=== PATIENT | male | born 1965 | race African-American/Black ===

== ENCOUNTER 2017-07-04 13:27 | Inpatient (IN) | payer OTHER ==
[2017-07-04 14:47] VITALS: BMI 43.4
--- NOTE | 2017-07-04 16:00 | HP ---
CIWA Score - CIWA Score Nausea/Vomitin Muscle Tremors: 4-Moderate,w/Arms Extend Anxiety: 3 Agitation: 1-Slight > Activity Paroxysmal Sweats: 3 Orientation: 0-Oriented Tacttile Disturbances: 0-None Auditory Disturbances: 0-None Visual Disturbances: 0-None Headache: 4-Moderately Severe CIWA-Ar Total Score: 18 Admission ROS S - HPI Chief Complaint: Alcohol withdrawal symptoms Allergies/Adverse Reactions: Allergies Allergy/AdvReac Type Severity Reaction Status Date / Time No Known Allergies Allergy Verified 07/04/17 15:56 History of Present Illness: 52 years old male with a long history of alcohol dependence is admitted to detox. Patient has been in previous detox and reports insignificant period of sobriety. He has past medical history of migraine headache and depression. Denies suicidal ideation at this time. Exam Limitations: No Limitations - Ebola screening Have you traveled outside of the country in the last 21 days: No Have you had contact with anyone from an Ebola affected area: No Have you been sick,other than usual withdrawal symptoms: No Do you have a fever: No - Review of Systems Constitutional: Chills, Loss of Appetite, Malaise, Night Sweats, Changes in sleep EENT: reports: Blurred Vision, Sinus Pressure Respiratory: reports: Productive cough (yellowish phlegm) Cardiac: reports: No Symptoms Reported GI: reports: Diarrhea, Nausea, Poor Appetite, Poor Fluid Intake, Abdominal cramping : reports: No Symptoms Reported Musculoskeletal: reports: No Symptoms Reported Integumentary: reports: Dryness, Flushing Neuro: reports: Headache, Tingling, Tremors Endocrine: reports: No Symptoms Reported Hematology: reports: No Symptoms Reported Psychiatric: reports: Orientated x3, Anxious, Depressed Other Systems: Reviewed and Negative Patient History - Patient Medical History Hx Anemia: No Hx Asthma: No Hx Chronic Obstructive Pulmonary Disease (COPD): No Hx Cancer: No Hx Cardiac Disorders: No Hx Congestive Heart Failure: No Hx Hypertension: No Hx Hypercholesterolemia: No Hx Pacemaker: No HX Cerebrovascular Accident: No Hx Seizures: No Hx Dementia: No Hx Diabetes: No Hx Gastrointestinal Disorders: No Hx Liver Disease: No Hx Genitourinary Disorders: No Hx Sexually Transmitted Disorders: No Hx Renal Disease (ESRD): No Hx Thyroid Disease: No Hx Human Immunodeficiency Virus (HIV): No Hx Hepatitis C: No Hx Depression: Yes Hx Suicide Attempt: No Hx Bipolar Disorder: No Hx Schizophrenia: No Other Medical History: MIGRAINE HEADACHE - Patient Surgical History Past Surgical History: No Hx Neurologic Surgery: No Hx Cataract Extraction: No Hx Cardiac Surgery: No Hx Lung Surgery: No Hx Abdominal Surgery: No Hx Appendectomy: No Hx Cholecystectomy: No Hx Genitourinary Surgery: No Hx Orthopedic Surgery: No Anesthesia Reaction: No - PPD History Previous Implant?: Yes (Lexi brock) Documented Results: Negative w/o proof Implanted On Prior [facility] Admission?: No Date: 03/17/13 PPD to be Administered?: Yes - Reproductive History Patient is a Female of Child Bearing Age (11 -55 yrs old): No (MALE) - Smoking Cessation Smoking history: Former smoker Have you smoked in the past 12 months: No Aproximately how many cigarettes per day: 2 Cigars Per Day: 0 Hx Chewing Tobacco Use: No Initiated information on smoking cessation: No - Substance & Tx. History Hx Alcohol Use: Yes (LIQUOR, BEER WINE) Hx Substance Use: Yes Substance Use Type: Cocaine Hx Substance Use Treatment: Yes ([facility] 2012) - Substances Abused Cocaine Route: Smoking Frequency: Daily Amount used: 1 GRAM Age of first use: 21 Date of Last Use: 07/03/17 Alcohol Route: Oral Frequency: Daily Amount used: BEER -3 x 12 oz, VODKA -1/2 pint Age of first use: 12 Date of Last Use: 07/03/17 Marijuana/Hashish Route: Smoking Frequency: Daily Amount used: 3 joints Age of first use: 12 Date of Last Use: 06/26/17 Family Disease History - Family Disease History Family History: Denies Admission Physical Exam [facility] - Vital Signs Vital Signs: Vital Signs - 24 hr 07/04/17 07/04/17 14:46 15:02 Temperature 97.6 F 97.6 F Pulse Rate 72 72 Respiratory 20 20 Rate Blood Pressure 148/89 148/89 - Physical General Appearance: Yes: Moderate Distress, Tremorous, Irritable, Sweating, Anxious HEENTM: Yes: EOMI, Normal ENT Inspection, JEREMIE Respiratory: Yes: Lungs Clear, Normal Breath Sounds, No Respiratory Distress Neck: Yes: Supple Breast: Yes: Breast Exam Deferred Cardiology: Yes: Regular Rhythm, Regular Rate, S1, S2 Abdominal: Yes: Protuberent Genitourinary: Yes: Within Normal Limits Back: Yes: Normal Inspection Musculoskeletal: Yes: Within Normal Limits Extremities: Yes: Tremors Neurological: Yes: Alert, Normal Mood/Affect, Normal Response Integumentary: Yes: Dry Lymphatic: Yes: Within Normal Limits - Diagnostic (1) Alcohol dependence with uncomplicated withdrawal Current Visit: No Status: Chronic (2) Cannabis dependence Current Visit: No Status: Chronic (3) Cocaine dependence Current Visit: No Status: Chronic Cleared for Admission [facility] - Detox or Rehab [facility] Level of Care: Medically Managed Detox Regimen/Protocol: Librium [facility] Breath Alcohol Content Breath Alcohol Content: 0 Urine Drug Screen - Results Drug Screen Negative: No Urine Drug Screen Results: KENNY-Cocaine
[2017-07-04] MEDS ORDERED: guaiFENesin/D-METHORPHAN HB 10 ML UNIT-DOSE CUPS PO PRN (16:11)
[2017-07-04] MEDS ORDERED: chlordiazePOXIDE HCL 25 MG CAPSULE PO PRN (16:11)
[2017-07-04] MEDS ORDERED: MAGNESIUM CITRATE 300 ML BOTTLE PO PRN (16:11)
[2017-07-04] MEDS ORDERED: MENTHOL/PHENOL 1 EACH UD MM PRN (16:11)
[2017-07-04] MEDS ORDERED: P-EPHED 60MG/TRIPROLIDI 2.5MG TABLET PO PRN (16:11)
[2017-07-04] MEDS ORDERED: MAG HYDROX/AL HYDROX/SIMETH 30 ML UNIT-DOSE CUP PO PRN (16:11)
[2017-07-04] MEDS ORDERED: MAGNESIUM HYDROX 2400MG/30ML ORAL SUSPENSION 30 ML CUP PO PRN (16:11)
[2017-07-04] MEDS ORDERED: LOPERAMIDE HCL 2 MG CAPSULE PO PRN (16:11)
[2017-07-04] MEDS: ACETAMINOPHEN 325 MG TABLET (FP) PO PRN (17:43)
[2017-07-04] MEDS: IBUPROFEN 400 MG TABLET (FP) PO PRN (22:45)
[2017-07-04] MEDS: chlordiazePOXIDE HCL 25 MG CAPSULE PO SCH (22:45)
[2017-07-04] MEDS: THIAMINE HCL 100 MG TABLET (FP) PO SCH (22:46)
[2017-07-04 22:55] LABS: URINE APPEARANCE TURBID; URINE BILIRUBIN NEGATIVE (NEGATIVE); URINE BLOOD NEGATIVE (NEGATIVE); URINE COLOR AMBER; URINE GLUCOSE (UA) NEGATIVE (NEGATIVE); URINE KETONE NEGATIVE (NEGATIVE); URINE LEUK ESTERASE NEGATIVE (NEGATIVE); URINE NITRITE NEGATIVE (NEGATIVE); URINE PROTEIN NEGATIVE (NEGATIVE); URINE UROBILINOGEN 4.0 E.U/dl mg/dL (0.2-1.0)
[2017-07-05] MEDS: chlordiazePOXIDE HCL 25 MG CAPSULE PO SCH ×4 (06:23→22:27)
[2017-07-05] MEDS: PRENATAL VITAMINS W/ FOLIC ACID TABLET (FP) PO SCH (10:05)
[2017-07-05 12:00] LABS: HEMATOCRIT 39.2 % (35.4-49); HEMOGLOBIN 12.7 GM/dL (11.7-16.9); MCH 29.3 pg (25.7-33.7); MCHC 32.5 g/dl (32.0-35.9); MEAN CELL VOLUME 90.4 fl (80-96); MEAN PLT VOLUME 8.7 fl (7.5-11.1); PLATELET COUNT 240 K/MM3 (134-434); RBC 4.34 M/mm3 (4.00-5.60); RDW 14.2 % (11.9-15.9); WHITE BLOOD COUNT 5.6 K/mm3 (4.0-10.0)
[2017-07-05 12:15] LABS: ALBUMIN 3.3 g/dl (3.4-5.0); ALK PHOS 66 U/L (45-117); ANION GAP 11 (8-16); BILIRUBIN,TOTAL 0.4 mg/dL (0.2-1.0); BLOOD UREA NITROGEN 14 mg/dL (7-18); CALCIUM 8.7 mg/dL (8.5-10.1); CHLORIDE 106 mmol/L (98-107); CO2 24 mmol/L (21-32); CREATININE 1.1 mg/dL (0.7-1.3); GLUCOSE,RANDOM 129 mg/dL (74-106); POTASSIUM 3.6 mmol/L (3.5-5.1); SGOT/AST 15 U/L (15-37); SGPT/ALT 25 U/L (12-78); SODIUM 141 mmol/L (136-145); TOT PROT 6.2 g/dl (6.4-8.2)
[2017-07-05 12:52] LABS: SICKLE CELL SCREEN NEGATIVE (NEGATIVE)
--- NOTE | 2017-07-05 13:35 | PN ---
[facility] CIWA - CIWA Score Nausea/Vomitin-No Nausea/No Vomiting Muscle Tremors: 4-Moderate,w/Arms Extend Anxiety: 4-Mod. Anxious/Guarded Agitation: 4-Moderately Restless Paroxysmal Sweats: 1-Minimal Palms Moist Orientation: 0-Oriented Tacttile Disturbances: 3-Moderate Itch/Numb/Burn Auditory Disturbances: 0-None Visual Disturbances: 0-None Headache: 0-None Present CIWA-Ar Total Score: 16 BHS Progress Note (SOAP) Subjective: ANXIETY,SWEATS,CHILLS,FATIGUE. Objective: 07/05/17 13:35 Vital Signs Temperature 97.1 F L 07/05/17 09:26 Pulse Rate 64 07/05/17 09:26 Respiratory Rate 18 07/05/17 09:26 Blood Pressure 134/93 07/05/17 09:26 O2 Sat by Pulse Oximetry (%) Laboratory Last Values WBC 5.6 K/mm3 (4.0-10.0) 07/05/17 07:50 RBC 4.34 M/mm3 (4.00-5.60) 07/05/17 07:50 Hgb 12.7 GM/dL (11.7-16.9) 07/05/17 07:50 Hct 39.2 % (35.4-49) 07/05/17 07:50 MCV 90.4 fl (80-96) 07/05/17 07:50 MCH 29.3 pg (25.7-33.7) 07/05/17 07:50 MCHC 32.5 g/dl (32.0-35.9) 07/05/17 07:50 RDW 14.2 % (11.9-15.9) 07/05/17 07:50 Plt Count 240 K/MM3 (134-434) 07/05/17 07:50 MPV 8.7 fl (7.5-11.1) 07/05/17 07:50 Sickle Cell Screen Negative (NEGATIVE) 07/05/17 07:50 Sodium 141 mmol/L (136-145) 07/05/17 07:50 Potassium 3.6 mmol/L (3.5-5.1) 07/05/17 07:50 Chloride 106 mmol/L (98-107) 07/05/17 07:50 Carbon Dioxide 24 mmol/L (21-32) 07/05/17 07:50 Anion Gap 11 (8-16) 07/05/17 07:50 BUN 14 mg/dL (7-18) 07/05/17 07:50 Creatinine 1.1 mg/dL (0.7-1.3) 07/05/17 07:50 Creat Clearance w eGFR > 60 (>60) 07/05/17 07:50 Random Glucose 129 mg/dL (74-106) H 07/05/17 07:50 Calcium 8.7 mg/dL (8.5-10.1) 07/05/17 07:50 Total Bilirubin 0.4 mg/dL (0.2-1.0) D 07/05/17 07:50 AST 15 U/L (15-37) D 07/05/17 07:50 ALT 25 U/L (12-78) D 07/05/17 07:50 Alkaline Phosphatase 66 U/L (45-117) 07/05/17 07:50 Total Protein 6.2 g/dl (6.4-8.2) L 07/05/17 07:50 Albumin 3.3 g/dl (3.4-5.0) L 07/05/17 07:50 Urine Color [place] 07/04/17 15:10 Urine Appearance Turbid 07/04/17 15:10 Urine pH 5.0 (5.0-8.0) 07/04/17 15:10 Ur Specific [place] 1.032 (1.001-1.035) 07/04/17 15:10 Urine Protein Negative (NEGATIVE) 07/04/17 15:10 Urine Glucose (UA) Negative (NEGATIVE) 07/04/17 15:10 Urine Ketones Negative (NEGATIVE) 07/04/17 15:10 Urine Blood Negative (NEGATIVE) 07/04/17 15:10 Urine Nitrite Negative (NEGATIVE) 07/04/17 15:10 Urine Bilirubin Negative (NEGATIVE) 07/04/17 15:10 Urine Urobilinogen 4.0 e.u/dl mg/dL (0.2-1.0) 07/04/17 15:10 Ur Leukocyte Esterase Negative (NEGATIVE) 07/04/17 15:10 RPR Titer Nonreactive (NONREACTIVE) 07/05/17 07:50 Assessment: 07/05/17 13:35 WITHDRAWAL SX Plan: CONTINUE DETOX
--- NOTE | 2017-07-05 14:17 | EKG ---
Test Reason : Blood Pressure : / mmHG Vent. Rate : 062 BPM Atrial Rate : 062 BPM P-R Int : 142 ms QRS Dur : 086 ms QT Int : 406 ms P-R-T Axes : 039 023 005 degrees QTc Int : 412 ms NORMAL SINUS RHYTHM NORMAL ECG NO PREVIOUS ECGS AVAILABLE Confirmed by BENY CHEN, GORAN ([id number]) on 07/05/2017 2:17:02 PM Referred By: Yury Aguirre Confirmed By:GORAN SWAN MD
[2017-07-05] MEDS: IBUPROFEN 400 MG TABLET (FP) PO PRN (18:07)
[2017-07-05] MEDS: THIAMINE HCL 100 MG TABLET (FP) PO SCH (22:26)
[2017-07-05] MEDS: ACETAMINOPHEN 325 MG TABLET (FP) PO PRN (22:26)
[2017-07-06] MEDS: chlordiazePOXIDE HCL 25 MG CAPSULE PO SCH ×3 (05:50→17:08)
[2017-07-06] MEDS: PRENATAL VITAMINS W/ FOLIC ACID TABLET (FP) PO SCH (10:19)
[2017-07-06] MEDS: IBUPROFEN 400 MG TABLET (FP) PO PRN ×2 (10:19→17:10)
--- NOTE | 2017-07-06 10:47 | PN ---
[facility] CIWA - CIWA Score Nausea/Vomitin-No Nausea/No Vomiting Muscle Tremors: 3 Anxiety: 4-Mod. Anxious/Guarded Agitation: 3 Paroxysmal Sweats: 2 Orientation: 2-Disoriented Date<2 days Tacttile Disturbances: 2-Mild Itch/Numbness/Burn Auditory Disturbances: 2-Mild Harshness/Frighten Visual Disturbances: 0-None Headache: 0-None Present CIWA-Ar Total Score: 18 BHS Progress Note (SOAP) Subjective: Fatigue, Anxious, Tremors, Sweating. Objective: PT. A &O X 2 (UNCERTAIN ABOUT CURRENT DAY / DATE). NO ACUTE DISTRESS. 07/06/17 10:45 Vital Signs Temperature 98.4 F 07/06/17 09:46 Pulse Rate 65 07/06/17 09:46 Respiratory Rate 18 07/06/17 09:46 Blood Pressure 135/92 07/06/17 09:46 O2 Sat by Pulse Oximetry (%) Laboratory Tests 07/04/17 07/05/17 07/05/17 15:10 07:50 07:50 WBC 5.6 RBC 4.34 Hgb 12.7 Hct 39.2 MCV 90.4 MCH 29.3 MCHC 32.5 RDW 14.2 Plt Count 240 MPV 8.7 Sickle Cell Screen Negative Sodium 141 Potassium 3.6 Chloride 106 Carbon Dioxide 24 Anion Gap 11 BUN 14 Creatinine 1.1 Creat Clearance w eGFR > 60 Random Glucose 129 H Calcium 8.7 Total Bilirubin 0.4 D AST 15 D ALT 25 D Alkaline Phosphatase 66 Total Protein 6.2 L Albumin 3.3 L Urine Color [place] Urine Appearance Turbid Urine pH 5.0 Ur Specific [place] 1.032 Urine Protein Negative Urine Glucose (UA) Negative Urine Ketones Negative Urine Blood Negative Urine Nitrite Negative Urine Bilirubin Negative Urine Urobilinogen 4.0 e.u/dl Ur Leukocyte Esterase Negative RPR Titer 07/05/17 07:50 WBC RBC Hgb Hct MCV MCH MCHC RDW Plt Count MPV Sickle Cell Screen Sodium Potassium Chloride Carbon Dioxide Anion Gap BUN Creatinine Creat Clearance w eGFR Random Glucose Calcium Total Bilirubin AST ALT Alkaline Phosphatase Total Protein Albumin Urine Color Urine Appearance Urine pH Ur Specific [place] Urine Protein Urine Glucose (UA) Urine Ketones Urine Blood Urine Nitrite Urine Bilirubin Urine Urobilinogen Ur Leukocyte Esterase RPR Titer Nonreactive LABS NOTED. Assessment: 07/06/17 10:46 WITHDRAWAL SYMPTOMS. Plan: CONTINUE DETOX. INCREASE DAILY PO FLUID INTAKE.
[2017-07-06] MEDS: SUMAtriptan SUCCINATE 50 MG TABLET PO SCH (20:30)
[2017-07-06] MEDS: chlordiazePOXIDE 5 MG CAPSULE PO SCH (22:02)
[2017-07-06] MEDS: THIAMINE HCL 100 MG TABLET (FP) PO SCH (22:03)
[2017-07-07] MEDS: chlordiazePOXIDE 5 MG CAPSULE PO SCH ×3 (06:29→17:18)
[2017-07-07] MEDS: IBUPROFEN 400 MG TABLET (FP) PO PRN (06:30)
[2017-07-07] MEDS ORDERED: AMMONIUM LACTATE 12% LOTION 225 GM BOTTLE TP SCH (10:00)
[2017-07-07] MEDS: METHYL SALICYLATE/MENTHOL OINT 30 GM TUBE TP SCH ×2 (10:33→22:00)
[2017-07-07] MEDS: PRENATAL VITAMINS W/ FOLIC ACID TABLET (FP) PO SCH (10:33)
[2017-07-07] MEDS: ACETAMINOPHEN 325 MG TABLET (FP) PO PRN (10:35)
--- NOTE | 2017-07-07 12:45 | PN ---
BHS Progress Note (SOAP) Subjective: Anxious, Sweating. Objective: PT. A & O X 2 (UNCERTAIN ABOUT CURRENT DAY / DATE). PT. OBSERVED AMBULATING ON UNIT. NO ACUTE DISTRESS. 07/07/17 12:42 Vital Signs Temperature 98.9 F 07/07/17 09:11 Pulse Rate 77 07/07/17 09:11 Respiratory Rate 18 07/07/17 09:11 Blood Pressure 141/91 07/07/17 09:11 O2 Sat by Pulse Oximetry (%) Laboratory Tests 07/04/17 07/05/17 07/05/17 15:10 07:50 07:50 WBC 5.6 RBC 4.34 Hgb 12.7 Hct 39.2 MCV 90.4 MCH 29.3 MCHC 32.5 RDW 14.2 Plt Count 240 MPV 8.7 Sickle Cell Screen Negative Sodium 141 Potassium 3.6 Chloride 106 Carbon Dioxide 24 Anion Gap 11 BUN 14 Creatinine 1.1 Creat Clearance w eGFR > 60 Random Glucose 129 H Calcium 8.7 Total Bilirubin 0.4 D AST 15 D ALT 25 D Alkaline Phosphatase 66 Total Protein 6.2 L Albumin 3.3 L Urine Color [place] Urine Appearance Turbid Urine pH 5.0 Ur Specific [place] 1.032 Urine Protein Negative Urine Glucose (UA) Negative Urine Ketones Negative Urine Blood Negative Urine Nitrite Negative Urine Bilirubin Negative Urine Urobilinogen 4.0 e.u/dl Ur Leukocyte Esterase Negative RPR Titer 07/05/17 07:50 WBC RBC Hgb Hct MCV MCH MCHC RDW Plt Count MPV Sickle Cell Screen Sodium Potassium Chloride Carbon Dioxide Anion Gap BUN Creatinine Creat Clearance w eGFR Random Glucose Calcium Total Bilirubin AST ALT Alkaline Phosphatase Total Protein Albumin Urine Color Urine Appearance Urine pH Ur Specific [place] Urine Protein Urine Glucose (UA) Urine Ketones Urine Blood Urine Nitrite Urine Bilirubin Urine Urobilinogen Ur Leukocyte Esterase RPR Titer Nonreactive LABS NOTED. Assessment: 07/07/17 12:43 WITHDRAWAL SYMPTOMS. Plan: CONTINUE DETOX.
--- NOTE | 2017-07-07 13:53 | CONSULT ---
[facility] Psychiatric Consult - Data Date of interview: 07/07/17 Admission source: [facility] Identifying data: Patient approached at bedside for psychiatric interview.Mr Woo abarca REFUSES." I am fine.I don't need to talk to psychiatrists.Please leave." Nursing staff is made aware.
[2017-07-07] MEDS: IBUPROFEN 600 MG TABLET (FP) PO PRN (17:20)
[2017-07-07] MEDS: chlordiazePOXIDE HCL 10 MG CAPSULE PO SCH (21:59)
[2017-07-07] MEDS: THIAMINE HCL 100 MG TABLET (FP) PO SCH (21:59)
[2017-07-08] MEDS: chlordiazePOXIDE HCL 10 MG CAPSULE PO SCH ×3 (05:20→17:16)
[2017-07-08] MEDS: PRENATAL VITAMINS W/ FOLIC ACID TABLET (FP) PO SCH (10:23)
[2017-07-08] MEDS: IBUPROFEN 600 MG TABLET (FP) PO PRN ×2 (10:24→21:54)
[2017-07-08] MEDS: METHYL SALICYLATE/MENTHOL OINT 30 GM TUBE TP SCH ×2 (10:25→21:51)
--- NOTE | 2017-07-08 12:13 | PN ---
BHS Progress Note (SOAP) Subjective: Body Aches, Anxious, Interrupted Sleep. Objective: PT. A & O X 3, OBSERVED AMBULATING ON UNIT. NO ACUTE DISTRESS. 07/08/17 12:11 Vital Signs Temperature 96.9 F L 07/08/17 08:44 Pulse Rate 70 07/08/17 08:44 Respiratory Rate 18 07/08/17 08:44 Blood Pressure 141/86 07/08/17 08:44 O2 Sat by Pulse Oximetry (%) Laboratory Tests 07/04/17 07/05/17 07/05/17 15:10 07:50 07:50 WBC 5.6 RBC 4.34 Hgb 12.7 Hct 39.2 MCV 90.4 MCH 29.3 MCHC 32.5 RDW 14.2 Plt Count 240 MPV 8.7 Sickle Cell Screen Negative Sodium 141 Potassium 3.6 Chloride 106 Carbon Dioxide 24 Anion Gap 11 BUN 14 Creatinine 1.1 Creat Clearance w eGFR > 60 Random Glucose 129 H Calcium 8.7 Total Bilirubin 0.4 D AST 15 D ALT 25 D Alkaline Phosphatase 66 Total Protein 6.2 L Albumin 3.3 L Urine Color [place] Urine Appearance Turbid Urine pH 5.0 Ur Specific [place] 1.032 Urine Protein Negative Urine Glucose (UA) Negative Urine Ketones Negative Urine Blood Negative Urine Nitrite Negative Urine Bilirubin Negative Urine Urobilinogen 4.0 e.u/dl Ur Leukocyte Esterase Negative RPR Titer 07/05/17 07:50 WBC RBC Hgb Hct MCV MCH MCHC RDW Plt Count MPV Sickle Cell Screen Sodium Potassium Chloride Carbon Dioxide Anion Gap BUN Creatinine Creat Clearance w eGFR Random Glucose Calcium Total Bilirubin AST ALT Alkaline Phosphatase Total Protein Albumin Urine Color Urine Appearance Urine pH Ur Specific [place] Urine Protein Urine Glucose (UA) Urine Ketones Urine Blood Urine Nitrite Urine Bilirubin Urine Urobilinogen Ur Leukocyte Esterase RPR Titer Nonreactive LABS NOTED. Assessment: 07/08/17 12:12 WITHDRAWAL SYMPTOMS. Plan: CONTINUE DETOX. DUE TO PERSISTENCE OF DETOX SYMPTOMS AND DUE TO SEVERELY INCLEMENT WEATHER OUTSIDE, PATIENT TO REMAIN ON DETOX UNIT (WHILE AFTERCARE PLANS ARE ARRANGED BY HIM AND HIS COUNSELOR) UNTIL TOMORROW FOR DISCHARGE.
[2017-07-08] MEDS: THIAMINE HCL 100 MG TABLET (FP) PO SCH (21:51)
[2017-07-08] MEDS: SUMAtriptan SUCCINATE 50 MG TABLET PO SCH (21:53)
[2017-07-09 06:02] VITALS: BP 111/64; PULSE 73; TEMP 98
[2017-07-09] MEDS: PRENATAL VITAMINS W/ FOLIC ACID TABLET (FP) PO SCH (09:08)
[2017-07-09] MEDS: METHYL SALICYLATE/MENTHOL OINT 30 GM TUBE TP SCH (09:08)
--- NOTE | 2017-07-09 12:28 | DS ---
[facility] Detox Discharge Summary Admission Date: 07/04/17 Discharge Date: 07/09/17 - History Present History: Alcohol Dependence, Cannabis Dependence, Cocaine Dependence Additional Comments: DETOX COMPLETED.ALERT O X 3. FOLLOW UP WITH PCP AT [facility] NEEDED. Pertinent Past History: MIGRAINE HEADACHES - Physical Exam Results Vital Signs: Vital Signs Temperature 98 F 07/09/17 06:01 Pulse Rate 73 07/09/17 06:01 Respiratory Rate 20 07/09/17 06:01 Blood Pressure 111/64 07/09/17 06:01 O2 Sat by Pulse Oximetry (%) Pertinent Admission Physical Exam Findings: WITHDRAWAL SX Laboratory Last Values WBC 5.6 K/mm3 (4.0-10.0) 07/05/17 07:50 RBC 4.34 M/mm3 (4.00-5.60) 07/05/17 07:50 Hgb 12.7 GM/dL (11.7-16.9) 07/05/17 07:50 Hct 39.2 % (35.4-49) 07/05/17 07:50 MCV 90.4 fl (80-96) 07/05/17 07:50 MCH 29.3 pg (25.7-33.7) 07/05/17 07:50 MCHC 32.5 g/dl (32.0-35.9) 07/05/17 07:50 RDW 14.2 % (11.9-15.9) 07/05/17 07:50 Plt Count 240 K/MM3 (134-434) 07/05/17 07:50 MPV 8.7 fl (7.5-11.1) 07/05/17 07:50 Sickle Cell Screen Negative (NEGATIVE) 07/05/17 07:50 Sodium 141 mmol/L (136-145) 07/05/17 07:50 Potassium 3.6 mmol/L (3.5-5.1) 07/05/17 07:50 Chloride 106 mmol/L (98-107) 07/05/17 07:50 Carbon Dioxide 24 mmol/L (21-32) 07/05/17 07:50 Anion Gap 11 (8-16) 07/05/17 07:50 BUN 14 mg/dL (7-18) 07/05/17 07:50 Creatinine 1.1 mg/dL (0.7-1.3) 07/05/17 07:50 Creat Clearance w eGFR > 60 (>60) 07/05/17 07:50 Random Glucose 129 mg/dL (74-106) H 07/05/17 07:50 Calcium 8.7 mg/dL (8.5-10.1) 07/05/17 07:50 Total Bilirubin 0.4 mg/dL (0.2-1.0) D 07/05/17 07:50 AST 15 U/L (15-37) D 07/05/17 07:50 ALT 25 U/L (12-78) D 07/05/17 07:50 Alkaline Phosphatase 66 U/L (45-117) 07/05/17 07:50 Total Protein 6.2 g/dl (6.4-8.2) L 07/05/17 07:50 Albumin 3.3 g/dl (3.4-5.0) L 07/05/17 07:50 Urine Color [place] 07/04/17 15:10 Urine Appearance Turbid 07/04/17 15:10 Urine pH 5.0 (5.0-8.0) 07/04/17 15:10 Ur Specific [place] 1.032 (1.001-1.035) 07/04/17 15:10 Urine Protein Negative (NEGATIVE) 07/04/17 15:10 Urine Glucose (UA) Negative (NEGATIVE) 07/04/17 15:10 Urine Ketones Negative (NEGATIVE) 07/04/17 15:10 Urine Blood Negative (NEGATIVE) 07/04/17 15:10 Urine Nitrite Negative (NEGATIVE) 07/04/17 15:10 Urine Bilirubin Negative (NEGATIVE) 07/04/17 15:10 Urine Urobilinogen 4.0 e.u/dl mg/dL (0.2-1.0) 07/04/17 15:10 Ur Leukocyte Esterase Negative (NEGATIVE) 07/04/17 15:10 RPR Titer Nonreactive (NONREACTIVE) 07/05/17 07:50 - Treatment Hospital Course: Detox Protocol Followed, Detoxed Safely, Responded well, Discharged Condition Good - Medication Discharge Medications: Ambulatory Orders Diphenhydramine HCl [Benadryl Capsule -] 100 mg PO HS 03/15/13 Ibuprofen [Motrin -] 800 mg PO PRN 03/15/13 Sumatriptan Succinate [Imitrex] 100 mg PO PRN 03/15/13 - Diagnosis (1) migraine headache Status: Chronic (2) rotator cuff injury of right shoulder Status: Chronic (3) syncope alcohol related Status: Suspected (4) Alcohol dependence with uncomplicated withdrawal Status: Acute (5) Cannabis dependence Status: Chronic (6) Cocaine dependence Status: Acute - AMA Did Patient Leave Against Medical Advice: No
== END 2017-07-09 09:10 | disposition home or self-care (01) | DRG 774 ==
LOC: YASAS 13:27 → Y3N 16:05
PROVIDERS: ADMIT Internal Medicine; ATTEND Internal Medicine
PROC: HZ2ZZZZ Detoxification Services for Substance Abuse Treatment (ICD-10-PCS; principal; 2017-07-04)
DX: F10.230 Alcohol dependence with withdrawal, uncomplicated (principal); F14.20 Cocaine dependence, uncomplicated; F12.20 Cannabis dependence, uncomplicated; G43.909 Migraine, unspecified, not intractable, without status migrainosus; Z86.79 Personal history of other diseases of the circulatory system
CPT/HCPCS: 36415; 80053; 81003; 85027; 85660; 86593; 93005; 93010

== ENCOUNTER 2017-11-30 16:05 | Inpatient (IN) | payer OTHER ==
[2017-11-30 19:34] VITALS: BMI 39.2
[2017-11-30] MEDS ORDERED: MELATONIN 5 MG TABLETS PO PRN (22:00)
--- NOTE | 2017-11-30 22:00 | HP ---
CIWA Score - CIWA Score Nausea/Vomitin-Mild Nausea/No Vomiting Muscle Tremors: 4-Moderate,w/Arms Extend Anxiety: 4-Mod. Anxious/Guarded Agitation: 4-Moderately Restless Paroxysmal Sweats: 3 Orientation: 3-Disoriented Date>2 days Tacttile Disturbances: 2-Mild Itch/Numbness/Burn Auditory Disturbances: 0-None Visual Disturbances: 0-None Headache: 4-Moderately Severe CIWA-Ar Total Score: 25 Admission ROS BHS - HPI Chief Complaint: C/O WITHDRAWAL SX' R/T ETOH. SEEKING DETOX Allergies/Adverse Reactions: Allergies Allergy/AdvReac Type Severity Reaction Status Date / Time No Known Allergies Allergy Verified 07/04/17 15:56 History of Present Illness: 52 Y.O. MALE WITH HX/O ALCOHOLISM HERE FOR DETOX. CLIENT IS KNOWN TO THIS PROGRAM. SELF REFERRED. REPORTS "A LITTLE USE OF HEROINE" UTOX NEG FOR OPI. CLIENT IS AWARE WILL NOT RECEIVE METHADONE. BUT WILL ORDER CLONIDINE FOR ANY DELAYED WITHDRAWAL SX'S. REPORTS LONGEST CLEAN TIME 2 YEARS IN A RESIDENTIAL PROGRAM. PMHX: DENIES PSYCH: FEELS DEPRESSED Exam Limitations: No Limitations - Ebola screening Have you traveled outside of the country in the last 21 days: No Have you had contact with anyone from an Ebola affected area: No Have you been sick,other than usual withdrawal symptoms: No Do you have a fever: No - Review of Systems Constitutional: Chills, Loss of Appetite, Night Sweats, Changes in sleep EENT: reports: No Symptoms Reported Respiratory: reports: Shortness of Breath (R/T BEING OVER WEIGHT) Cardiac: reports: No Symptoms Reported GI: reports: Diarrhea, Nausea, Poor Appetite : reports: No Symptoms Reported Musculoskeletal: reports: No Symptoms Reported Integumentary: reports: No Symptoms Reported Neuro: reports: No Symptoms reported Endocrine: reports: No Symptoms Reported Hematology: reports: No Symptoms Reported Psychiatric: reports: Depressed Other Systems: Reviewed and Negative Patient History - Patient Medical History Hx Anemia: No Hx Asthma: No Hx Chronic Obstructive Pulmonary Disease (COPD): No Hx Cancer: No Hx Cardiac Disorders: No Hx Congestive Heart Failure: No Hx Hypertension: No Hx Hypercholesterolemia: No Hx Pacemaker: No HX Cerebrovascular Accident: No Hx Seizures: No Hx Dementia: No Hx Diabetes: No Hx Gastrointestinal Disorders: No Hx Liver Disease: No Hx Genitourinary Disorders: No Hx Sexually Transmitted Disorders: No Hx Renal Disease (ESRD): No Hx Thyroid Disease: No Hx Human Immunodeficiency Virus (HIV): No Hx Hepatitis C: No Hx Depression: Yes (NO PSYCH F/U) Hx Suicide Attempt: No Hx Bipolar Disorder: No Hx Schizophrenia: No Other Medical History: DENIES - Patient Surgical History Past Surgical History: No Hx Neurologic Surgery: No Hx Cataract Extraction: No Hx Cardiac Surgery: No Hx Lung Surgery: No Hx Breast Surgery: No Hx Breast Biopsy: No Hx Abdominal Surgery: No Hx Appendectomy: No Hx Cholecystectomy: No Hx Genitourinary Surgery: No Hx Section: No Hx Orthopedic Surgery: No Anesthesia Reaction: No - PPD History Previous Implant?: Yes Documented Results: Negative w/proof Implanted On Prior [facility] Admission?: Yes Date: 07/06/17 Results: 0MM PPD to be Administered?: No - Smoking Cessation Smoking history: Current some day smoker Have you smoked in the past 12 months: No Aproximately how many cigarettes per day: 6 (A WEEK) Cigars Per Day: 0 Hx Chewing Tobacco Use: No Initiated information on smoking cessation: Yes 'Breaking Loose' booklet given: 11/30/17 - Substance & Tx. History Hx Alcohol Use: Yes Hx Substance Use: Yes Substance Use Type: Alcohol, Cocaine, Heroin Hx Substance Use Treatment: Yes ([facility]) - Substances Abused VODKA Route: Oral Frequency: Daily Amount used: 1 PINT Age of first use: 12 Date of Last Use: 11/30/17 COCAINE Route: Smoking Frequency: Daily Amount used: 1 GM Age of first use: 21 Date of Last Use: 11/30/17 HEROIN Route: Inhalation Frequency: 3-6 times per week Amount used: 2 BAGS Age of first use: 39 Date of Last Use: 11/24/17 Family Disease History - Family Disease History Family History: Denies Admission Physical Exam BHS - Vital Signs Vital Signs: Vital Signs - 24 hr 11/30/17 19:30 Temperature 98.7 F Pulse Rate 90 Respiratory 18 Rate Blood Pressure 145/93 - Physical General Appearance: Yes: Appropriately Dressed, Mild Distress, Tremorous, Sweating, Other (MALODUROUS) HEENTM: Yes: EOMI, Normocephalic, Normal Voice, JEREM[place], Pharynx Normal, Other ( MISSING TEETH) Respiratory: Yes: Chest Non-Tender, Lungs Clear, Normal Breath Sounds, No Respiratory Distress, No Accessory Muscle Use Neck: Yes: No masses,lesions,Nodules, Supple, Trachea in good position Breast: Yes: Breast Exam Deferred Cardiology: Yes: Regular Rhythm, Regular Rate, S1, S2 Abdominal: Yes: Normal Bowel Sounds, Non Tender, Soft, Protuberent Genitourinary: Yes: Within Normal Limits (NO C/O) Back: Yes: Normal Inspection Musculoskeletal: Yes: full range of Motion, Gait Steady Extremities: Yes: Normal Capillary Refill, Normal Range of Motion, Non-Tender, Tremors Neurological: Yes: Alert, Motor Strength 5/5, Disoriented (TO DATE) Integumentary: Yes: Warm, Moist Lymphatic: Yes: Within Normal Limits - Diagnostic (1) Insomnia Current Visit: Yes Status: Suspected (2) depression Current Visit: Yes Status: Suspected (3) Alcohol dependence with uncomplicated withdrawal Current Visit: Yes Status: Acute (4) Cocaine dependence Current Visit: Yes Status: Chronic (5) migraine headache Current Visit: Yes Status: Chronic Cleared for Admission [facility] - Detox or Rehab [facility] Level of Care: Medically Managed Detox Regimen/Protocol: Librium Claeared for Rehab Admission: No [facility] Breath Alcohol Content Breath Alcohol Content: 0 Urine Drug Screen - Results Drug Screen Negative: No Urine Drug Screen Results: KENNY-Cocaine
[2017-11-30] MEDS ORDERED: MAG HYDROX/AL HYDROX/SIMETH 30 ML UNIT-DOSE CUP PO PRN (22:05)
[2017-11-30] MEDS ORDERED: IBUPROFEN 400 MG TABLET (FP) PO PRN ×2 (22:05→22:07)
[2017-11-30] MEDS ORDERED: chlordiazePOXIDE HCL 25 MG CAPSULE PO PRN (22:05)
[2017-11-30] MEDS ORDERED: guaiFENesin/D-METHORPHAN HB 10 ML UNIT-DOSE CUPS PO PRN (22:05)
[2017-11-30] MEDS ORDERED: P-EPHED 60MG/TRIPROLIDI 2.5MG TABLET PO PRN (22:05)
[2017-11-30] MEDS ORDERED: LOPERAMIDE HCL 2 MG CAPSULE PO PRN (22:05)
[2017-11-30] MEDS ORDERED: NICOTINE POLACRILEX 2 MG GUM BC PRN (22:05)
[2017-11-30] MEDS ORDERED: MAGNESIUM HYDROX 2400MG/30ML ORAL SUSPENSION 30 ML CUP PO PRN (22:05)
[2017-11-30] MEDS ORDERED: MENTHOL/PHENOL 1 EACH UD MM PRN (22:05)
[2017-11-30] MEDS ORDERED: MAGNESIUM CITRATE 300 ML BOTTLE PO PRN (22:05)
[2017-11-30] MEDS ORDERED: ACETAMINOPHEN 325 MG TABLET (FP) PO PRN (22:05)
[2017-11-30] MEDS ORDERED: cloNIDine HCL 0.1 MG TABLET PO PRN (22:06)
[2017-12-01] MEDS: hydrOXYzine PAMOATE 50 MG CAPSULE (FP) PO PRN ×2 (01:15→22:25)
[2017-12-01] MEDS: chlordiazePOXIDE HCL 25 MG CAPSULE PO SCH ×5 (04:01→22:25)
[2017-12-01 06:53] LABS: URINE APPEARANCE CLEAR; URINE BILIRUBIN NEGATIVE (<2.0 mg/dL); URINE COLOR AMBER; URINE GLUCOSE (UA) NEGATIVE (NEGATIVE); URINE KETONE NEGATIVE (NEGATIVE); URINE LEUK ESTERASE NEGATIVE (NEGATIVE); URINE NITRITE NEGATIVE (NEGATIVE); URINE PROTEIN NEGATIVE (NEGATIVE)
[2017-12-01] MEDS: NICOTINE 14 MG/24 HOURS TOPICAL PATCH TD SCH (10:28)
[2017-12-01] MEDS: PRENATAL VITAMINS W/ FOLIC ACID TABLET (FP) PO SCH (10:28)
[2017-12-01 10:39] LABS: MCH 29.8 pg (25.7-33.7); MCHC 33.5 g/dl (32.0-35.9); MEAN PLT VOLUME 9.3 fl (7.5-11.1); PLATELET COUNT 226 K/MM3 (134-434); RBC 4.04 M/mm3 (4.00-5.60); RDW 15.2 % (11.9-15.9); WHITE BLOOD COUNT 4.8 K/mm3 (4.0-10.0)
[2017-12-01 10:51] LABS: CHLORIDE 108 mmol/L (98-107); POTASSIUM 3.9 mmol/L (3.5-5.1); SODIUM 143 mmol/L (136-145)
[2017-12-01 12:26] LABS: ALBUMIN 3.2 g/dl (3.4-5.0); ALK PHOS 74 U/L (45-117); ANION GAP 5 (8-16); BILIRUBIN,TOTAL 0.2 mg/dL (0.2-1.0); BLOOD UREA NITROGEN 15 mg/dL (7-18); CALCIUM 8.2 mg/dL (8.5-10.1); CO2 30 mmol/L (21-32); CREATININE 1.1 mg/dL (0.7-1.3); GLUCOSE,RANDOM 87 mg/dL (74-106); SGOT/AST 13 U/L (15-37); TOT PROT 6.2 g/dl (6.4-8.2)
--- NOTE | 2017-12-01 12:30 | CONSULT ---
[facility] Psychiatric Consult - Data Date of interview: 12/01/17 Admission source: [facility] Identifying data: Patient is approached for psychiatric interview.Mr Berkowitz refused.
--- NOTE | 2017-12-01 13:28 | EKG ---
Test Reason : Blood Pressure : / mmHG Vent. Rate : 062 BPM Atrial Rate : 062 BPM P-R Int : 148 ms QRS Dur : 090 ms QT Int : 416 ms P-R-T Axes : 040 017 006 degrees QTc Int : 422 ms NORMAL SINUS RHYTHM MINIMAL VOLTAGE CRITERIA FOR LVH, MAY BE NORMAL VARIANT BORDERLINE ECG WHEN COMPARED WITH ECG OF 04-JUL-2017 18:51, NO SIGNIFICANT CHANGE WAS FOUND Confirmed by TOMMY CHEN, MONALISA ([id number]) on 12/01/2017 1:27:54 PM Referred By: Confirmed By:MONALISA SANDERS MD
[2017-12-01 13:31] LABS: SGPT/ALT 17 U/L (12-78)
--- NOTE | 2017-12-01 14:09 | PN ---
[facility] CIWA - CIWA Score Nausea/Vomitin-No Nausea/No Vomiting Muscle Tremors: 3 Anxiety: 4-Mod. Anxious/Guarded Agitation: 3 Paroxysmal Sweats: 2 Orientation: 0-Oriented Tacttile Disturbances: 2-Mild Itch/Numbness/Burn Auditory Disturbances: 3-Moderate Harsh/Frighten Visual Disturbances: 0-None Headache: 0-None Present CIWA-Ar Total Score: 17 BHS Progress Note (SOAP) Subjective: Sweating, Anxious, Tremors. Objective: PATIENT A & O X 3. NO ACUTE DISTRESS. 12/01/17 14:09 Vital Signs Temperature 96.5 F L 12/01/17 13:34 Pulse Rate 62 12/01/17 13:34 Respiratory Rate 18 12/01/17 13:34 Blood Pressure 149/78 12/01/17 13:34 O2 Sat by Pulse Oximetry (%) Laboratory Tests 11/30/17 12/01/17 12/01/17 23:19 07:30 07:30 WBC 4.8 RBC 4.04 Hgb 12.0 Hct 36.0 MCV 89.0 MCH 29.8 MCHC 33.5 RDW 15.2 Plt Count 226 MPV 9.3 Sodium 143 Potassium 3.9 Chloride 108 H Carbon Dioxide 30 D Anion Gap 5 L BUN 15 Creatinine 1.1 Creat Clearance w eGFR > 60 Random Glucose 87 D Calcium 8.2 L Total Bilirubin 0.2 D AST 13 L ALT 17 D Alkaline Phosphatase 74 Total Protein 6.2 L Albumin 3.2 L Urine Color [place] Urine Appearance Clear Urine pH 5.0 Ur Specific [place] 1.031 Urine Protein Negative Urine Glucose (UA) Negative Urine Ketones Negative Urine Blood Negative Urine Nitrite Negative Urine Bilirubin Negative Urine Urobilinogen 2.0 Ur Leukocyte Esterase Negative LABS NOTED. RPR RESULT PENDING. 12/01/17 14:10 Assessment: 12/01/17 14:10 WITHDRAWAL SYMPTOMS. Plan: CONTINUE DETOX.
[2017-12-01] MEDS: THIAMINE HCL 100 MG TABLET (FP) PO SCH (22:25)
[2017-12-02] MEDS: chlordiazePOXIDE HCL 25 MG CAPSULE PO SCH ×3 (07:35→17:29)
[2017-12-02] MEDS: NICOTINE 14 MG/24 HOURS TOPICAL PATCH TD SCH (10:38)
[2017-12-02] MEDS: PRENATAL VITAMINS W/ FOLIC ACID TABLET (FP) PO SCH (10:38)
--- NOTE | 2017-12-02 11:39 | PN ---
S CIWA - CIWA Score Nausea/Vomitin-No Nausea/No Vomiting Muscle Tremors: 4-Moderate,w/Arms Extend Anxiety: 4-Mod. Anxious/Guarded Agitation: 4-Moderately Restless Paroxysmal Sweats: 1-Minimal Palms Moist Orientation: 0-Oriented Tacttile Disturbances: 0-None Auditory Disturbances: 0-None Visual Disturbances: 0-None Headache: 0-None Present CIWA-Ar Total Score: 13 BHS Progress Note (SOAP) Subjective: ANXIETY,IRRITABILITY,FATIGUE. Objective: 12/02/17 11:38 Vital Signs 12/02/17 12/02/17 12/02/17 06:03 06:30 09:18 Temperature 97.8 F 97.9 F Pulse Rate 58 L 60 Respiratory 20 18 18 Rate Blood Pressure 135/83 139/94 Laboratory Tests 11/30/17 12/01/17 12/01/17 23:19 07:30 07:30 WBC 4.8 RBC 4.04 Hgb 12.0 Hct 36.0 MCV 89.0 MCH 29.8 MCHC 33.5 RDW 15.2 Plt Count 226 MPV 9.3 Sodium 143 Potassium 3.9 Chloride 108 H Carbon Dioxide 30 D Anion Gap 5 L BUN 15 Creatinine 1.1 Creat Clearance w eGFR > 60 Random Glucose 87 D Calcium 8.2 L Total Bilirubin 0.2 D AST 13 L ALT 17 D Alkaline Phosphatase 74 Total Protein 6.2 L Albumin 3.2 L Urine Color [place] Urine Appearance Clear Urine pH 5.0 Ur Specific [place] 1.031 Urine Protein Negative Urine Glucose (UA) Negative Urine Ketones Negative Urine Blood Negative Urine Nitrite Negative Urine Bilirubin Negative Urine Urobilinogen 2.0 Ur Leukocyte Esterase Negative RPR Titer 12/01/17 07:30 WBC RBC Hgb Hct MCV MCH MCHC RDW Plt Count MPV Sodium Potassium Chloride Carbon Dioxide Anion Gap BUN Creatinine Creat Clearance w eGFR Random Glucose Calcium Total Bilirubin AST ALT Alkaline Phosphatase Total Protein Albumin Urine Color Urine Appearance Urine pH Ur Specific [place] Urine Protein Urine Glucose (UA) Urine Ketones Urine Blood Urine Nitrite Urine Bilirubin Urine Urobilinogen Ur Leukocyte Esterase RPR Titer Nonreactive Assessment: 12/02/17 11:38 WITHDRAWAL SX Plan: CONTINUE DETOX
[2017-12-02] MEDS: THIAMINE HCL 100 MG TABLET (FP) PO SCH (22:22)
[2017-12-02] MEDS: hydrOXYzine PAMOATE 50 MG CAPSULE (FP) PO PRN (22:22)
[2017-12-02] MEDS: chlordiazePOXIDE 5 MG CAPSULE PO SCH (22:22)
[2017-12-02] MEDS ORDERED: IBUPROFEN 600 MG TABLET (FP) PO PRN (22:38)
[2017-12-03] MEDS: chlordiazePOXIDE 5 MG CAPSULE PO SCH ×3 (07:04→17:55)
[2017-12-03] MEDS: NICOTINE 14 MG/24 HOURS TOPICAL PATCH TD SCH (10:23)
[2017-12-03] MEDS: PRENATAL VITAMINS W/ FOLIC ACID TABLET (FP) PO SCH (10:23)
--- NOTE | 2017-12-03 10:59 | PN ---
BHS Progress Note (SOAP) Subjective: PT SEEN IN BED BUT RESPONDS TO VERBAL COMMUNICATIONS. ALERT O X 3. REPORTS NAD.SLIGHT FATIGUE. Objective: 12/03/17 10:59 Vital Signs 12/03/17 12/03/17 12/03/17 03:30 07:33 09:31 Temperature 97.9 F 97.4 F L Pulse Rate 65 61 Respiratory 18 19 18 Rate Blood Pressure 139/91 124/83 Laboratory Tests 11/30/17 12/01/17 12/01/17 23:19 07:30 07:30 WBC 4.8 RBC 4.04 Hgb 12.0 Hct 36.0 MCV 89.0 MCH 29.8 MCHC 33.5 RDW 15.2 Plt Count 226 MPV 9.3 Sodium 143 Potassium 3.9 Chloride 108 H Carbon Dioxide 30 D Anion Gap 5 L BUN 15 Creatinine 1.1 Creat Clearance w eGFR > 60 Random Glucose 87 D Calcium 8.2 L Total Bilirubin 0.2 D AST 13 L ALT 17 D Alkaline Phosphatase 74 Total Protein 6.2 L Albumin 3.2 L Urine Color [place] Urine Appearance Clear Urine pH 5.0 Ur Specific [place] 1.031 Urine Protein Negative Urine Glucose (UA) Negative Urine Ketones Negative Urine Blood Negative Urine Nitrite Negative Urine Bilirubin Negative Urine Urobilinogen 2.0 Ur Leukocyte Esterase Negative RPR Titer 12/01/17 07:30 WBC RBC Hgb Hct MCV MCH MCHC RDW Plt Count MPV Sodium Potassium Chloride Carbon Dioxide Anion Gap BUN Creatinine Creat Clearance w eGFR Random Glucose Calcium Total Bilirubin AST ALT Alkaline Phosphatase Total Protein Albumin Urine Color Urine Appearance Urine pH Ur Specific [place] Urine Protein Urine Glucose (UA) Urine Ketones Urine Blood Urine Nitrite Urine Bilirubin Urine Urobilinogen Ur Leukocyte Esterase RPR Titer Nonreactive Assessment: 12/03/17 10:59 SLIGHT WITHDRAWAL SX Plan: CONTINUE DETOX.
[2017-12-03] MEDS: chlordiazePOXIDE HCL 10 MG CAPSULE PO SCH (22:24)
[2017-12-03] MEDS: hydrOXYzine PAMOATE 50 MG CAPSULE (FP) PO PRN (22:24)
[2017-12-03] MEDS: THIAMINE HCL 100 MG TABLET (FP) PO SCH (22:27)
[2017-12-04 06:23] VITALS: BP 109/66; PULSE 81; TEMP 97.9
[2017-12-04] MEDS: chlordiazePOXIDE HCL 10 MG CAPSULE PO SCH (07:38)
--- NOTE | 2017-12-04 15:54 | PN ---
BHS Progress Note (SOAP) Subjective: Patient denies current Detox symptoms and reports that he feels well overall. Objective: PATIENT A & O X 3, OBSERVED AMBULATING ON UNIT. NO ACUTE DISTRESS. 12/04/17 15:53 Vital Signs Temperature 97.9 F 12/04/17 06:22 Pulse Rate 81 12/04/17 06:22 Respiratory Rate 18 12/04/17 06:30 Blood Pressure 109/66 12/04/17 06:22 O2 Sat by Pulse Oximetry (%) Laboratory Tests 11/30/17 12/01/17 12/01/17 23:19 07:30 07:30 WBC 4.8 RBC 4.04 Hgb 12.0 Hct 36.0 MCV 89.0 MCH 29.8 MCHC 33.5 RDW 15.2 Plt Count 226 MPV 9.3 Sodium 143 Potassium 3.9 Chloride 108 H Carbon Dioxide 30 D Anion Gap 5 L BUN 15 Creatinine 1.1 Creat Clearance w eGFR > 60 Random Glucose 87 D Calcium 8.2 L Total Bilirubin 0.2 D AST 13 L ALT 17 D Alkaline Phosphatase 74 Total Protein 6.2 L Albumin 3.2 L Urine Color [place] Urine Appearance Clear Urine pH 5.0 Ur Specific [place] 1.031 Urine Protein Negative Urine Glucose (UA) Negative Urine Ketones Negative Urine Blood Negative Urine Nitrite Negative Urine Bilirubin Negative Urine Urobilinogen 2.0 Ur Leukocyte Esterase Negative RPR Titer 12/01/17 07:30 WBC RBC Hgb Hct MCV MCH MCHC RDW Plt Count MPV Sodium Potassium Chloride Carbon Dioxide Anion Gap BUN Creatinine Creat Clearance w eGFR Random Glucose Calcium Total Bilirubin AST ALT Alkaline Phosphatase Total Protein Albumin Urine Color Urine Appearance Urine pH Ur Specific [place] Urine Protein Urine Glucose (UA) Urine Ketones Urine Blood Urine Nitrite Urine Bilirubin Urine Urobilinogen Ur Leukocyte Esterase RPR Titer Nonreactive LABS NOTED. Assessment: 12/04/17 15:53 COMPLETION OF DETOX REGIMEN. Plan: PATIENT SCHEDULED FOR DISCHARGE FROM DETOX UNIT TODAY.
--- NOTE | 2017-12-04 15:55 | DS ---
[facility] Detox Discharge Summary Admission Date: 11/30/17 Discharge Date: 12/04/17 - History Present History: Alcohol Dependence, Cannabis Dependence Additional Comments: PATIENT ADVISED TO CONSIDER LOCAL 12-STEP / NA / AA OUTPATIENT SUPPORT GROUPS FOR AFTERCARE. PATIENT WAS DISCHARGED FROM DETOX UNIT IN STABLE MEDICAL CONDITION. Pertinent Past History: Insomnia, Depression, History of Migraine Headaches, - Physical Exam Results Vital Signs: Vital Signs Temperature 97.9 F 12/04/17 06:22 Pulse Rate 81 12/04/17 06:22 Respiratory Rate 18 12/04/17 06:30 Blood Pressure 109/66 12/04/17 06:22 O2 Sat by Pulse Oximetry (%) Pertinent Admission Physical Exam Findings: WITHDRAWAL SYMPTOMS. Laboratory Tests 11/30/17 12/01/17 12/01/17 23:19 07:30 07:30 WBC 4.8 RBC 4.04 Hgb 12.0 Hct 36.0 MCV 89.0 MCH 29.8 MCHC 33.5 RDW 15.2 Plt Count 226 MPV 9.3 Sodium 143 Potassium 3.9 Chloride 108 H Carbon Dioxide 30 D Anion Gap 5 L BUN 15 Creatinine 1.1 Creat Clearance w eGFR > 60 Random Glucose 87 D Calcium 8.2 L Total Bilirubin 0.2 D AST 13 L ALT 17 D Alkaline Phosphatase 74 Total Protein 6.2 L Albumin 3.2 L Urine Color [place] Urine Appearance Clear Urine pH 5.0 Ur Specific [place] 1.031 Urine Protein Negative Urine Glucose (UA) Negative Urine Ketones Negative Urine Blood Negative Urine Nitrite Negative Urine Bilirubin Negative Urine Urobilinogen 2.0 Ur Leukocyte Esterase Negative RPR Titer 12/01/17 07:30 WBC RBC Hgb Hct MCV MCH MCHC RDW Plt Count MPV Sodium Potassium Chloride Carbon Dioxide Anion Gap BUN Creatinine Creat Clearance w eGFR Random Glucose Calcium Total Bilirubin AST ALT Alkaline Phosphatase Total Protein Albumin Urine Color Urine Appearance Urine pH Ur Specific [place] Urine Protein Urine Glucose (UA) Urine Ketones Urine Blood Urine Nitrite Urine Bilirubin Urine Urobilinogen Ur Leukocyte Esterase RPR Titer Nonreactive LABS NOTED. - Treatment Hospital Course: Detox Protocol Followed, Detoxed Safely, Responded well, Discharged Condition Good Patient has Accepted a Rehab Referral to: PT. ADVISED TO CONSIDER LOCAL 12- STEP / NA / AA OUTPATIENT SUPPORT GROUP. - Diagnosis (1) Alcohol dependence with uncomplicated withdrawal Status: Acute (2) Cocaine dependence Status: Acute (3) migraine headache Status: Chronic (4) Insomnia Status: Suspected Qualifiers: Insomnia type: unspecified Qualified Code(s): G47.00 - Insomnia, unspecified (5) depression Status: Suspected - AMA Did Patient Leave Against Medical Advice: No
== END 2017-12-04 08:56 | disposition home or self-care (01) | DRG 775 ==
LOC: YASAS 16:05 → Y3N 22:38
PROVIDERS: ADMIT Internal Medicine; ATTEND Internal Medicine
PROC: HZ2ZZZZ Detoxification Services for Substance Abuse Treatment (ICD-10-PCS; principal; 2017-11-30)
DX: F10.230 Alcohol dependence with withdrawal, uncomplicated (principal); F32.9 Major depressive disorder, single episode, unspecified; G47.00 Insomnia, unspecified; G43.909 Migraine, unspecified, not intractable, without status migrainosus; S46.001A Unspecified injury of muscle(s) and tendon(s) of the rotator cuff of right shoulder, initial encounter; X58.XXXA Exposure to other specified factors, initial encounter; Y93.9 Activity, unspecified; Y92.9 Unspecified place or not applicable; Y99.9 Unspecified external cause status
CPT/HCPCS: 36415; 80053; 81003; 85027; 86593; 93005; 93010

== ENCOUNTER 2018-01-25 20:23 | Inpatient (IN) | payer OTHER ==
[2018-01-25 20:44] VITALS: BMI 36.1
--- NOTE | 2018-01-25 21:32 | HP ---
CIWA Score - CIWA Score Nausea/Vomitin-Mild Nausea/No Vomiting Muscle Tremors: 3 Anxiety: 4-Mod. Anxious/Guarded Agitation: 4-Moderately Restless Paroxysmal Sweats: 4-Forehead w/Sweat Beads Orientation: 2-Disoriented Date<2 days Tacttile Disturbances: 1-Very Mild Itch/Numbness Auditory Disturbances: 0-None Visual Disturbances: 0-None Headache: 3-Moderate CIWA-Ar Total Score: 22 Admission ROS BHS - HPI Chief Complaint: SEEKING DETOX FOR WITHDRAWAL SX'S R/T ALCOHOL Allergies/Adverse Reactions: Allergies Allergy/AdvReac Type Severity Reaction Status Date / Time No Known Allergies Allergy Verified 12/01/17 01:12 History of Present Illness: 52 Y.O. MALE WITH HX/O ALCOHOLISM HERE FOR DETOX. CLIENT IS KNOWN TO THIS PROGRAM. SELF REFERRED. REPORTS "A LITTLE USE OF HEROINE" UTOX NEG FOR OPI. CLIENT IS AWARE WILL NOT RECEIVE METHADONE. BUT WILL ORDER CLONIDINE FOR ANY DELAYED WITHDRAWAL SX'S. REPORTS LONGEST CLEAN TIME 2 YEARS IN A RESIDENTIAL PROGRAM. PMHX: DENIES PSYCH: FEELS DEPRESSED Exam Limitations: No Limitations - Ebola screening Have you traveled outside of the country in the last 21 days: No Have you had contact with anyone from an Ebola affected area: No Have you been sick,other than usual withdrawal symptoms: No Do you have a fever: No - Review of Systems Constitutional: Chills, Night Sweats EENT: reports: Dental Problems (MISSING TEETH) Respiratory: reports: Shortness of Breath Cardiac: reports: No Symptoms Reported GI: reports: No Symptoms Reported : reports: No Symptoms Reported Musculoskeletal: reports: No Symptoms Reported Integumentary: reports: Other (UPER LIP COLD SORE) Neuro: reports: No Symptoms reported Endocrine: reports: No Symptoms Reported Hematology: reports: No Symptoms Reported Psychiatric: reports: Anxious, Depressed Other Systems: Reviewed and Negative Patient History - Patient Medical History Hx Anemia: No Hx Asthma: No Hx Chronic Obstructive Pulmonary Disease (COPD): No Hx Cancer: No Hx Cardiac Disorders: No Hx Congestive Heart Failure: No Hx Hypertension: No Hx Hypercholesterolemia: No Hx Pacemaker: No HX Cerebrovascular Accident: No Hx Seizures: No Hx Dementia: No Hx Diabetes: No Hx Gastrointestinal Disorders: No Hx Liver Disease: No Hx Genitourinary Disorders: No Hx Sexually Transmitted Disorders: No Hx Renal Disease (ESRD): No Hx Thyroid Disease: No Hx Human Immunodeficiency Virus (HIV): No Hx Hepatitis C: No Hx Depression: Yes Hx Suicide Attempt: No Hx Bipolar Disorder: No Hx Schizophrenia: No Other Medical History: ANXIETY - Patient Surgical History Past Surgical History: No Hx Neurologic Surgery: No Hx Cataract Extraction: No Hx Cardiac Surgery: No Hx Lung Surgery: No Hx Breast Surgery: No Hx Breast Biopsy: No Hx Abdominal Surgery: No Hx Appendectomy: No Hx Cholecystectomy: No Hx Genitourinary Surgery: No Hx Section: No Hx Orthopedic Surgery: No Anesthesia Reaction: No - PPD History Previous Implant?: Yes Documented Results: Negative w/proof Implanted On Prior [facility] Admission?: No Date: 07/06/17 Results: 0MM PPD to be Administered?: No - Smoking Cessation Smoking history: Current some day smoker Have you smoked in the past 12 months: No Aproximately how many cigarettes per day: 6 Cigars Per Day: 0 Hx Chewing Tobacco Use: No Initiated information on smoking cessation: Yes 'Breaking Loose' booklet given: 01/25/18 - Substance & Tx. History Hx Alcohol Use: Yes Hx Substance Use: Yes Substance Use Type: Alcohol, Cocaine Hx Substance Use Treatment: Yes ([facility]) - Substances Abused ETOH Route: Oral Frequency: Daily Amount used: BEER/3CANS/1/2PINT LIQUOR Age of first use: 13 Date of Last Use: 01/24/18 COCAINE Route: Smoking Frequency: Daily Amount used: 1 GM Age of first use: 21 Date of Last Use: 01/25/18 Family Disease History - Family Disease History Family History: Denies Admission Physical Exam [facility] - Vital Signs Vital Signs: Vital Signs - 24 hr 01/25/18 20:37 Temperature 97.4 F L Pulse Rate 65 Respiratory 18 Rate Blood Pressure 131/70 - Physical General Appearance: Yes: Appropriately Dressed, Mild Distress, Tremorous (FELT) , Sweating, Anxious, Other (MALODUROUS) HEENTM: Yes: EOMI, Normocephalic, Normal Voice, JEREMIE, Pharynx Normal, Other ( POOR DENTITION/MISSING TEETH) Respiratory: Yes: Chest Non-Tender, Lungs Clear, Normal Breath Sounds, No Respiratory Distress, No Accessory Muscle Use Neck: Yes: No masses,lesions,Nodules, Supple, Trachea in good position Breast: Yes: Breast Exam Deferred Cardiology: Yes: Regular Rhythm, Regular Rate, S1, S2 Abdominal: Yes: Normal Bowel Sounds, Non Tender, Soft, Protuberent Genitourinary: Yes: Within Normal Limits Back: Yes: Normal Inspection Musculoskeletal: Yes: full range of Motion, Gait Steady Extremities: Yes: Normal Range of Motion, Non-Tender, Tremors (FELT) Neurological: Yes: Alert, Motor Strength 5/5 Integumentary: Yes: Normal Color, Warm, Moist Lymphatic: Yes: Within Normal Limits - Diagnostic (1) Alcohol dependence with uncomplicated withdrawal Current Visit: Yes Status: Acute (2) Cocaine dependence Current Visit: Yes Status: Chronic (3) Insomnia Current Visit: Yes Status: Suspected Qualifiers: Insomnia type: unspecified Qualified Code(s): G47.00 - Insomnia, unspecified (4) depression Current Visit: Yes Status: Suspected Cleared for Admission [facility] - Detox or Rehab [facility] Level of Care: Medically Managed Detox Regimen/Protocol: Librium Claeared for Rehab Admission: No [facility] Breath Alcohol Content Breath Alcohol Content: 0 Urine Drug Screen - Results Drug Screen Negative: No Urine Drug Screen Results: KENNY-Cocaine
[2018-01-25] MEDS ORDERED: diphenhydrAMINE HCL 25 MG CAPSULE (FP) PO ONE (21:33)
[2018-01-25] MEDS ORDERED: MAGNESIUM HYDROX 2400MG/30ML ORAL SUSPENSION 30 ML CUP PO PRN (21:44)
[2018-01-25] MEDS ORDERED: MAG HYDROX/AL HYDROX/SIMETH 30 ML UNIT-DOSE CUP PO PRN (21:44)
[2018-01-25] MEDS ORDERED: LOPERAMIDE HCL 2 MG CAPSULE PO PRN (21:44)
[2018-01-25] MEDS ORDERED: guaiFENesin/D-METHORPHAN HB 10 ML UNIT-DOSE CUPS PO PRN (21:44)
[2018-01-25] MEDS ORDERED: ACETAMINOPHEN 325 MG TABLET (FP) PO PRN (21:44)
[2018-01-25] MEDS ORDERED: chlordiazePOXIDE HCL 25 MG CAPSULE PO PRN (21:44)
[2018-01-25] MEDS ORDERED: NICOTINE POLACRILEX 2 MG GUM BC PRN (21:44)
[2018-01-25] MEDS ORDERED: P-EPHED 60MG/TRIPROLIDI 2.5MG TABLET PO PRN (21:44)
[2018-01-25] MEDS ORDERED: hydrOXYzine PAMOATE 50 MG CAPSULE (FP) PO PRN (21:44)
[2018-01-25] MEDS ORDERED: MAGNESIUM CITRATE 300 ML BOTTLE PO PRN (21:44)
[2018-01-25] MEDS ORDERED: MENTHOL/PHENOL 1 EACH UD MM PRN (21:44)
[2018-01-25] MEDS ORDERED: MELATONIN 5 MG TABLETS PO PRN (22:00)
[2018-01-25] MEDS: chlordiazePOXIDE HCL 25 MG CAPSULE PO SCH (23:00)
[2018-01-25] MEDS: THIAMINE HCL 100 MG TABLET (FP) PO SCH (23:00)
[2018-01-26 00:15] LABS: URINE APPEARANCE TURBID; URINE BILIRUBIN NEGATIVE (<2.0 mg/dL); URINE COLOR YELLOW; URINE GLUCOSE (UA) NEGATIVE (NEGATIVE); URINE KETONE NEGATIVE (NEGATIVE); URINE LEUK ESTERASE NEGATIVE (NEGATIVE); URINE NITRITE NEGATIVE (NEGATIVE)
[2018-01-26 00:19] LABS: URINE PROTEIN 2+ (NEGATIVE)
[2018-01-26 00:25] LABS: EPI CELLS FEW /HPF (FEW); URINE BACTERIA FEW /hpf (NONE SEEN); URINE MUCUS MANY
[2018-01-26] MEDS: chlordiazePOXIDE HCL 25 MG CAPSULE PO SCH ×4 (05:39→22:55)
--- NOTE | 2018-01-26 10:08 | EKG ---
Test Reason : Blood Pressure : / mmHG Vent. Rate : 066 BPM Atrial Rate : 066 BPM P-R Int : 150 ms QRS Dur : 080 ms QT Int : 404 ms P-R-T Axes : 041 024 -19 degrees QTc Int : 423 ms NORMAL SINUS RHYTHM NONSPECIFIC ST AND T WAVE ABNORMALITY ABNORMAL ECG WHEN COMPARED WITH ECG OF 01-DEC-2017 01:22, NO SIGNIFICANT CHANGE WAS FOUND Confirmed by MONALISA SANDERS MD ([id number]) on 01/26/2018 10:07:54 AM Referred By: Confirmed By:MONALISA SANDERS MD
[2018-01-26 10:11] LABS: CHLORIDE 105 mmol/L (98-107); POTASSIUM 3.5 mmol/L (3.5-5.1); SODIUM 142 mmol/L (136-145)
[2018-01-26 10:17] LABS: HEMATOCRIT 39.4 % (35.4-49); HEMOGLOBIN 13.1 GM/dL (11.7-16.9); MCH 29.8 pg (25.7-33.7); MCHC 33.3 g/dl (32.0-35.9); MEAN CELL VOLUME 89.5 fl (80-96); MEAN PLT VOLUME 8.9 fl (7.5-11.1); PLATELET COUNT 264 K/MM3 (134-434); RBC 4.41 M/mm3 (4.00-5.60); RDW 14.1 % (11.9-15.9); WHITE BLOOD COUNT 4.8 K/mm3 (4.0-10.0)
[2018-01-26 10:20] LABS: ALBUMIN 3.6 g/dl (3.4-5.0); ALK PHOS 83 U/L (45-117); ANION GAP 10 (8-16); BILIRUBIN,TOTAL 0.3 mg/dL (0.2-1.0); BLOOD UREA NITROGEN 12 mg/dL (7-18); CALCIUM 8.8 mg/dL (8.5-10.1); CO2 27 mmol/L (21-32); CREATININE 1.3 mg/dL (0.7-1.3); GLUCOSE,RANDOM 111 mg/dL (74-106); SGOT/AST 16 U/L (15-37); SGPT/ALT 16 U/L (12-78); TOT PROT 6.8 g/dl (6.4-8.2)
[2018-01-26] MEDS: PRENATAL VITAMINS W/ FOLIC ACID TABLET (FP) PO SCH (10:33)
[2018-01-26] MEDS: NICOTINE 14 MG/24 HOURS TOPICAL PATCH TD SCH (10:33)
--- NOTE | 2018-01-26 11:30 | PN ---
[facility] CIWA - CIWA Score Nausea/Vomitin-Mild Nausea/No Vomiting Muscle Tremors: 3 Anxiety: 4-Mod. Anxious/Guarded Agitation: 2 Paroxysmal Sweats: 3 Orientation: 0-Oriented Tacttile Disturbances: 3-Moderate Itch/Numb/Burn Auditory Disturbances: 1-Very Mild Visual Disturbances: 2-Mild Sensitivity Headache: 0-None Present CIWA-Ar Total Score: 19 S Progress Note (SOAP) Subjective: Sweating, Tremors, Anxious, Body Aches, Interrupted Sleep. Objective: PATIENT A & O X 3, OBSERVED AMBULATING ON UNIT. NO ACUTE DISTRESS. 01/26/18 11:31 Vital Signs Temperature 97.7 F 01/26/18 09:07 Pulse Rate 57 L 01/26/18 09:07 Respiratory Rate 18 01/26/18 09:07 Blood Pressure 123/76 01/26/18 09:07 O2 Sat by Pulse Oximetry (%) Laboratory Tests 01/25/18 01/26/18 01/26/18 20:50 06:30 06:30 WBC 4.8 RBC 4.41 Hgb 13.1 Hct 39.4 MCV 89.5 MCH 29.8 MCHC 33.3 RDW 14.1 Plt Count 264 MPV 8.9 Sodium 142 Potassium 3.5 Chloride 105 Carbon Dioxide 27 Anion Gap 10 BUN 12 Creatinine 1.3 Creat Clearance w eGFR 57.75 Random Glucose 111 H D Calcium 8.8 Total Bilirubin 0.3 AST 16 D ALT 16 Alkaline Phosphatase 83 Total Protein 6.8 Albumin 3.6 Urine Color Yellow Urine Appearance Turbid Urine pH 5.0 Ur Specific [place] 1.032 Urine Protein 2+ H Urine Glucose (UA) Negative Urine Ketones Negative Urine Blood Negative Urine Nitrite Negative Urine Bilirubin Negative Urine Urobilinogen 2.0 Ur Leukocyte Esterase Negative Urine WBC (Auto) None Urine RBC (Auto) None Ur Epithelial Cells Few Urine Bacteria Few Urine Mucus Many RPR Titer 01/26/18 06:30 WBC RBC Hgb Hct MCV MCH MCHC RDW Plt Count MPV Sodium Potassium Chloride Carbon Dioxide Anion Gap BUN Creatinine Creat Clearance w eGFR Random Glucose Calcium Total Bilirubin AST ALT Alkaline Phosphatase Total Protein Albumin Urine Color Urine Appearance Urine pH Ur Specific [place] Urine Protein Urine Glucose (UA) Urine Ketones Urine Blood Urine Nitrite Urine Bilirubin Urine Urobilinogen Ur Leukocyte Esterase Urine WBC (Auto) Urine RBC (Auto) Ur Epithelial Cells Urine Bacteria Urine Mucus RPR Titer Nonreactive LABS NOTED. Assessment: 01/26/18 11:31 WITHDRAWAL SYMPTOMS. Plan: CONTINUE DETOX.
--- NOTE | 2018-01-26 17:42 | CONSULT ---
[facility] Psychiatric Consult - Data Date of interview: 01/26/18 Admission source: [facility] Identifying data: Readmission to [facility] for this 52 y/o A male seeking detox treatment on for alcohol and cocaine dependence.Patient is single without dependents,domiciled,unemployed and supported on Public Assistance. Substance Abuse History: Confirmed by patient in this interview.Smoking history : Current some day smoker. Have you smoked in the past 12 months: No. Aproximately how many cigarettes per day: 6. Cigars Per Day: 0. Hx Chewing Tobacco Use: No. Initiated information on smoking cessation: Yes. 'Breaking Loose' booklet given: 01/25/18. - Substance & Tx. History. Hx Alcohol Use: Yes. Hx Substance Use: Yes. Substance Use Type: Alcohol, Cocaine. Hx Substance Use Treatment: Yes ([facility]). - Substances Abused. ETOH. Route: Oral. Frequency: Daily. Amount used: BEER/3CANS/1/2PINT LIQUOR. Age of first use: 13. Date of Last Use: 01/24/18. COCAINE. Route: Smoking. Frequency: Daily. Amount used: 1 GM. Age of first use: 21. Date of Last Use: 01/25/18 Medical History: Patient endorses good general health. Psychiatric History: Patient denies. Physical/Sexual Abuse/Trauma History: Patient denies. Additional Comment: Urine Drug Screen Results: KENNY-Cocaine.Noted. Mental Status Exam - Mental Status Exam Alert and Oriented to: Time, Place, Person Cognitive Function: Good Patient Appearance: Well Groomed Mood: Hopeful, Euthymic Affect: Appropriate, Normal Range Patient Behavior: Fatigued, Appropriate, Cooperative Speech Pattern: Clear, Appropriate Voice Loudness: Normal Thought Process: Intact, Goal Oriented Thought Disorder: Not Present Hallucinations: Denies Suicidal Ideation: Denies Homicidal Ideation: Denies Insight/Judgement: Poor Sleep: Poorly, Difficulty falling asleep Appetite: Good Muscle strength/Tone: Normal Gait/Station: Normal Psychiatric Findings - Problem List ([place] 1, 2,3) (1) Alcohol dependence with uncomplicated withdrawal Current Visit: Yes Status: Acute (2) Cocaine dependence Current Visit: Yes Status: Acute (3) Nicotine dependence Current Visit: Yes Status: Acute (4) Insomnia Current Visit: Yes Status: Acute Qualifiers: Insomnia type: unspecified Qualified Code(s): G47.00 - Insomnia, unspecified - Initial Treatment Plan Initial Treatment Plan: Psychoeducation.Sleep hygiene.Detoxification.Benadryl 50 mg po hs prn to address insomnia (patient's specific request).Side effects/ benefits discussed with the patient.Consent (verbal) given.Observation.
[2018-01-26] MEDS: diphenhydrAMINE HCL 25 MG CAPSULE (FP) PO PRN (22:55)
[2018-01-26] MEDS: IBUPROFEN 400 MG TABLET (FP) PO PRN (22:58)
[2018-01-26] MEDS: THIAMINE HCL 100 MG TABLET (FP) PO SCH (22:59)
[2018-01-27] MEDS: chlordiazePOXIDE HCL 25 MG CAPSULE PO SCH ×3 (06:02→17:57)
[2018-01-27] MEDS: NICOTINE 14 MG/24 HOURS TOPICAL PATCH TD SCH (10:42)
[2018-01-27] MEDS: PRENATAL VITAMINS W/ FOLIC ACID TABLET (FP) PO SCH (10:42)
--- NOTE | 2018-01-27 11:58 | PN ---
[facility] CIWA - CIWA Score Nausea/Vomitin-No Nausea/No Vomiting Muscle Tremors: 2 Anxiety: 3 Agitation: 2 Paroxysmal Sweats: 2 Orientation: 0-Oriented Tacttile Disturbances: 2-Mild Itch/Numbness/Burn Auditory Disturbances: 0-None Visual Disturbances: 2-Mild Sensitivity Headache: 0-None Present CIWA-Ar Total Score: 13 S Progress Note (SOAP) Subjective: Sweating, Tremors, Anxious, Body Aches. Objective: PATIENT A & O X 3, OBSERVED AMBULATING ON UNIT. NO ACUTE DISTRESS. 01/27/18 11:59 Vital Signs Temperature 96.5 F L 01/27/18 05:59 Pulse Rate 59 L 01/27/18 10:33 Respiratory Rate 18 01/27/18 10:33 Blood Pressure 143/94 01/27/18 10:33 O2 Sat by Pulse Oximetry (%) Laboratory Tests 01/25/18 01/26/18 01/26/18 20:50 06:30 06:30 WBC 4.8 RBC 4.41 Hgb 13.1 Hct 39.4 MCV 89.5 MCH 29.8 MCHC 33.3 RDW 14.1 Plt Count 264 MPV 8.9 Sodium 142 Potassium 3.5 Chloride 105 Carbon Dioxide 27 Anion Gap 10 BUN 12 Creatinine 1.3 Creat Clearance w eGFR 57.75 Random Glucose 111 H D Calcium 8.8 Total Bilirubin 0.3 AST 16 D ALT 16 Alkaline Phosphatase 83 Total Protein 6.8 Albumin 3.6 Urine Color Yellow Urine Appearance Turbid Urine pH 5.0 Ur Specific [place] 1.032 Urine Protein 2+ H Urine Glucose (UA) Negative Urine Ketones Negative Urine Blood Negative Urine Nitrite Negative Urine Bilirubin Negative Urine Urobilinogen 2.0 Ur Leukocyte Esterase Negative Urine WBC (Auto) None Urine RBC (Auto) None Ur Epithelial Cells Few Urine Bacteria Few Urine Mucus Many RPR Titer 01/26/18 06:30 WBC RBC Hgb Hct MCV MCH MCHC RDW Plt Count MPV Sodium Potassium Chloride Carbon Dioxide Anion Gap BUN Creatinine Creat Clearance w eGFR Random Glucose Calcium Total Bilirubin AST ALT Alkaline Phosphatase Total Protein Albumin Urine Color Urine Appearance Urine pH Ur Specific [place] Urine Protein Urine Glucose (UA) Urine Ketones Urine Blood Urine Nitrite Urine Bilirubin Urine Urobilinogen Ur Leukocyte Esterase Urine WBC (Auto) Urine RBC (Auto) Ur Epithelial Cells Urine Bacteria Urine Mucus RPR Titer Nonreactive LABS NOTED. Assessment: 01/27/18 11:59 WITHDRAWAL SYMPTOMS. Plan: CONTINUE DETOX. INCREASE DAILY PO FLUID INTAKE.
[2018-01-27] MEDS ORDERED: SUMAtriptan SUCCINATE 50 MG TABLET PO PRN (12:10)
[2018-01-27] MEDS ORDERED: cloNIDine HCL 0.1 MG TABLET PO ONE (21:36)
--- NOTE | 2018-01-27 21:36 | PN ---
[facility] Progress Note Note: Vital Signs Temperature 97.7 F 01/27/18 18:42 Pulse Rate 64 01/27/18 18:42 Respiratory Rate 18 01/27/18 18:42 Blood Pressure 154/91 01/27/18 18:42 O2 Sat by Pulse Oximetry (%) next BP 156/103 asymtomatic elevated BP clonidine 0.1 mg STAT continue detox continue to monitor
[2018-01-27] MEDS: THIAMINE HCL 100 MG TABLET (FP) PO SCH (22:08)
[2018-01-27] MEDS: chlordiazePOXIDE 5 MG CAPSULE PO SCH (22:08)
[2018-01-27] MEDS: diphenhydrAMINE HCL 25 MG CAPSULE (FP) PO PRN (22:43)
[2018-01-28] MEDS: chlordiazePOXIDE 5 MG CAPSULE PO SCH ×3 (06:55→17:49)
[2018-01-28] MEDS: IBUPROFEN 400 MG TABLET (FP) PO PRN ×2 (10:17→20:35)
[2018-01-28] MEDS: PRENATAL VITAMINS W/ FOLIC ACID TABLET (FP) PO SCH (10:17)
[2018-01-28] MEDS: NICOTINE 14 MG/24 HOURS TOPICAL PATCH TD SCH (10:19)
--- NOTE | 2018-01-28 12:37 | PN ---
BHS Progress Note (SOAP) Subjective: Sweating, Anxious, Body Aches. Objective: PATIENT A & O X 3, OBSERVED AMBULATING ON UNIT. NO ACUTE DISTRESS. 01/28/18 12:37 Vital Signs Temperature 97.1 F L 01/28/18 06:27 Pulse Rate 61 01/28/18 06:27 Respiratory Rate 18 01/28/18 06:27 Blood Pressure 132/79 01/28/18 06:27 O2 Sat by Pulse Oximetry (%) Laboratory Tests 01/25/18 01/26/18 01/26/18 20:50 06:30 06:30 WBC 4.8 RBC 4.41 Hgb 13.1 Hct 39.4 MCV 89.5 MCH 29.8 MCHC 33.3 RDW 14.1 Plt Count 264 MPV 8.9 Sodium 142 Potassium 3.5 Chloride 105 Carbon Dioxide 27 Anion Gap 10 BUN 12 Creatinine 1.3 Creat Clearance w eGFR 57.75 Random Glucose 111 H D Calcium 8.8 Total Bilirubin 0.3 AST 16 D ALT 16 Alkaline Phosphatase 83 Total Protein 6.8 Albumin 3.6 Urine Color Yellow Urine Appearance Turbid Urine pH 5.0 Ur Specific [place] 1.032 Urine Protein 2+ H Urine Glucose (UA) Negative Urine Ketones Negative Urine Blood Negative Urine Nitrite Negative Urine Bilirubin Negative Urine Urobilinogen 2.0 Ur Leukocyte Esterase Negative Urine WBC (Auto) None Urine RBC (Auto) None Ur Epithelial Cells Few Urine Bacteria Few Urine Mucus Many RPR Titer 01/26/18 06:30 WBC RBC Hgb Hct MCV MCH MCHC RDW Plt Count MPV Sodium Potassium Chloride Carbon Dioxide Anion Gap BUN Creatinine Creat Clearance w eGFR Random Glucose Calcium Total Bilirubin AST ALT Alkaline Phosphatase Total Protein Albumin Urine Color Urine Appearance Urine pH Ur Specific [place] Urine Protein Urine Glucose (UA) Urine Ketones Urine Blood Urine Nitrite Urine Bilirubin Urine Urobilinogen Ur Leukocyte Esterase Urine WBC (Auto) Urine RBC (Auto) Ur Epithelial Cells Urine Bacteria Urine Mucus RPR Titer Nonreactive LABS NOTED. Assessment: 01/28/18 12:37 WITHDRAWAL SYMPTOMS. Plan: CONTINUE DETOX. PATIENT SCHEDULED FOR D/C TOMORROW.
[2018-01-28] MEDS: chlordiazePOXIDE HCL 10 MG CAPSULE PO SCH (22:23)
[2018-01-28] MEDS: THIAMINE HCL 100 MG TABLET (FP) PO SCH (22:23)
[2018-01-28] MEDS: diphenhydrAMINE HCL 25 MG CAPSULE (FP) PO PRN (22:25)
[2018-01-29 06:33] VITALS: BP 131/77; PULSE 65; TEMP 97.9
[2018-01-29] MEDS: chlordiazePOXIDE HCL 10 MG CAPSULE PO SCH (06:48)
--- NOTE | 2018-01-29 21:16 | PN ---
BHS Progress Note (SOAP) Subjective: Patient denies current Detox symptoms and reports that he feels well overall. Objective: PATIENT A & O X 3, OBSERVED AMBULATING ON UNIT. NO ACUTE DISTRESS. 01/29/18 21:15 Vital Signs Temperature 97.9 F 01/29/18 06:33 Pulse Rate 65 01/29/18 06:33 Respiratory Rate 18 01/29/18 06:33 Blood Pressure 131/77 01/29/18 06:33 O2 Sat by Pulse Oximetry (%) Laboratory Tests 01/25/18 01/26/18 01/26/18 20:50 06:30 06:30 WBC 4.8 RBC 4.41 Hgb 13.1 Hct 39.4 MCV 89.5 MCH 29.8 MCHC 33.3 RDW 14.1 Plt Count 264 MPV 8.9 Sodium 142 Potassium 3.5 Chloride 105 Carbon Dioxide 27 Anion Gap 10 BUN 12 Creatinine 1.3 Creat Clearance w eGFR 57.75 Random Glucose 111 H D Calcium 8.8 Total Bilirubin 0.3 AST 16 D ALT 16 Alkaline Phosphatase 83 Total Protein 6.8 Albumin 3.6 Urine Color Yellow Urine Appearance Turbid Urine pH 5.0 Ur Specific [place] 1.032 Urine Protein 2+ H Urine Glucose (UA) Negative Urine Ketones Negative Urine Blood Negative Urine Nitrite Negative Urine Bilirubin Negative Urine Urobilinogen 2.0 Ur Leukocyte Esterase Negative Urine WBC (Auto) None Urine RBC (Auto) None Ur Epithelial Cells Few Urine Bacteria Few Urine Mucus Many RPR Titer 01/26/18 06:30 WBC RBC Hgb Hct MCV MCH MCHC RDW Plt Count MPV Sodium Potassium Chloride Carbon Dioxide Anion Gap BUN Creatinine Creat Clearance w eGFR Random Glucose Calcium Total Bilirubin AST ALT Alkaline Phosphatase Total Protein Albumin Urine Color Urine Appearance Urine pH Ur Specific [place] Urine Protein Urine Glucose (UA) Urine Ketones Urine Blood Urine Nitrite Urine Bilirubin Urine Urobilinogen Ur Leukocyte Esterase Urine WBC (Auto) Urine RBC (Auto) Ur Epithelial Cells Urine Bacteria Urine Mucus RPR Titer Nonreactive LABS NOTED. Assessment: 01/29/18 21:16 COMPLETION OF DETOX REGIMEN. Plan: PATIENT SCHEDULED FOR DISCHARGE FROM DETOX UNIT TODAY.
--- NOTE | 2018-01-29 21:20 | DS ---
[facility] Detox Discharge Summary Admission Date: 01/25/18 Discharge Date: 01/29/18 - History Present History: Alcohol Dependence, Cocaine Dependence Additional Comments: NO BEDS AREA AVAILABLE IN [facility] AT THIS TIME. THUS, PATIENT WILL GO HOME FOR NEXT COUPLE OF NIGHTS AND THEN CONTACT [facility] ADMISSIONS DEPT. ON 01/31/2018 TO INQUIRE ABOUT POSSIBLE ADMISSION AND REHAB BED AVAILABILITY AT THAT TIME. PATIENT WAS DISCHARGED FROM DETOX UNIT IN STABLE MEDICAL CONDITION. Pertinent Past History: Nicotine Dependence, Insomnia, History of Migraines, Depression. - Physical Exam Results Vital Signs: Vital Signs Temperature 97.9 F 01/29/18 06:33 Pulse Rate 65 01/29/18 06:33 Respiratory Rate 18 01/29/18 06:33 Blood Pressure 131/77 01/29/18 06:33 O2 Sat by Pulse Oximetry (%) Pertinent Admission Physical Exam Findings: WITHDRAWAL SYMPTOMS. Laboratory Tests 01/25/18 01/26/18 01/26/18 20:50 06:30 06:30 WBC 4.8 RBC 4.41 Hgb 13.1 Hct 39.4 MCV 89.5 MCH 29.8 MCHC 33.3 RDW 14.1 Plt Count 264 MPV 8.9 Sodium 142 Potassium 3.5 Chloride 105 Carbon Dioxide 27 Anion Gap 10 BUN 12 Creatinine 1.3 Creat Clearance w eGFR 57.75 Random Glucose 111 H D Calcium 8.8 Total Bilirubin 0.3 AST 16 D ALT 16 Alkaline Phosphatase 83 Total Protein 6.8 Albumin 3.6 Urine Color Yellow Urine Appearance Turbid Urine pH 5.0 Ur Specific [place] 1.032 Urine Protein 2+ H Urine Glucose (UA) Negative Urine Ketones Negative Urine Blood Negative Urine Nitrite Negative Urine Bilirubin Negative Urine Urobilinogen 2.0 Ur Leukocyte Esterase Negative Urine WBC (Auto) None Urine RBC (Auto) None Ur Epithelial Cells Few Urine Bacteria Few Urine Mucus Many RPR Titer 01/26/18 06:30 WBC RBC Hgb Hct MCV MCH MCHC RDW Plt Count MPV Sodium Potassium Chloride Carbon Dioxide Anion Gap BUN Creatinine Creat Clearance w eGFR Random Glucose Calcium Total Bilirubin AST ALT Alkaline Phosphatase Total Protein Albumin Urine Color Urine Appearance Urine pH Ur Specific [place] Urine Protein Urine Glucose (UA) Urine Ketones Urine Blood Urine Nitrite Urine Bilirubin Urine Urobilinogen Ur Leukocyte Esterase Urine WBC (Auto) Urine RBC (Auto) Ur Epithelial Cells Urine Bacteria Urine Mucus RPR Titer Nonreactive LABS NOTED. - Treatment Hospital Course: Detox Protocol Followed, Detoxed Safely, Responded well, Discharged Condition Good, Rehab Referral Accepted Patient has Accepted a Rehab Referral to: [facility] ([place], [place] . - Medication Discharge Medications: Ambulatory Orders NK [No Known Home Medication] 01/25/18 - Diagnosis (1) Alcohol dependence with uncomplicated withdrawal Status: Acute (2) Cocaine dependence Status: Acute (3) Insomnia Status: Acute Qualifiers: Insomnia type: unspecified Qualified Code(s): G47.00 - Insomnia, unspecified (4) depression Status: Suspected - AMA Did Patient Leave Against Medical Advice: No
== END 2018-01-29 08:54 | disposition home or self-care (01) | DRG 774 ==
LOC: YASAS 20:23 → Y3N 22:01
PROVIDERS: ADMIT Surgery; ATTEND Surgery
PROC: HZ2ZZZZ Detoxification Services for Substance Abuse Treatment (ICD-10-PCS; principal; 2018-01-25)
DX: F10.230 Alcohol dependence with withdrawal, uncomplicated (principal); F14.20 Cocaine dependence, uncomplicated; F17.210 Nicotine dependence, cigarettes, uncomplicated; F32.9 Major depressive disorder, single episode, unspecified; F41.9 Anxiety disorder, unspecified; G47.00 Insomnia, unspecified
CPT/HCPCS: 36415; 80053; 81003; 81015; 85027; 86593; 93005; 93010

== ENCOUNTER 2018-11-02 08:36 | Inpatient (IN) | payer OTHER ==
[2018-11-02 09:35] VITALS: BMI 31.6
--- NOTE | 2018-11-02 10:57 | HP ---
CIWA Score Nausea/Vomitin Muscle Tremors: 3 Anxiety: 3 Agitation: 2 Paroxysmal Sweats: 1-Minimal Palms Moist Orientation: 0-Oriented Tacttile Disturbances: 1-Very Mild Itch/Numbness Auditory Disturbances: 1-Very Mild Visual Disturbances: 0-None Headache: 2-Mild CIWA-Ar Total Score: 16 - Admission Criteria [facility]ASAS Guidelines: Admission for Medically Managed Detox: Requires at least one of the followin. CIWA greater than 12 2. Seizures within the past 24 hours 3. Delirium tremens within the past 24 hours 4. Hallucinations within the past 24 hours 5. Acute intervention needed for co occurring medical disorder 6. Acute intervention needed for co occurring psychiatric disorder 7. Severe withdrawal that cannot be handled at a lower level of care (continued vomiting, continued diarrhea, abnormal vital signs) requiring intravenous medication and/or fluids 8. Admission ROS BHS - HPI Chief Complaint: i need help to stop drinking alcohol,cocaine,marijuana and heroin abuse, withdrawal symptom,need detox, multiple admissions in detox,but keep relapsing last detox 01/26/28 to 01/29/18 alcohol related syncope nicotine dependence 3 cigarette,does not need nicotine replacement weigh loss longest sobriety 2 years Allergies/Adverse Reactions: Allergies Allergy/AdvReac Type Severity Reaction Status Date / Time No Known Allergies Allergy Verified 01/25/18 22:10 History of Present Illness: this 53 years old male with alcohol,cocaine,marijuana dependence and heroin abused seeking detox as mentioned in chief complaint - Ebola screening Have you traveled outside of the country in the last 21 days: No Have you had contact with anyone from an Ebola affected area: No Do you have a fever: No - Review of Systems Constitutional: Loss of Appetite, Malaise, Night Sweats, Changes in sleep, Weakness, Unintentional Wgt. Loss EENT: reports: Tearing, Nose Congestion Respiratory: reports: No Symptoms reported Cardiac: reports: No Symptoms Reported GI: reports: Diarrhea, Nausea, Vomiting, Abdominal cramping : reports: No Symptoms Reported Integumentary: reports: Dryness Neuro: reports: No Symptoms reported, Tremors Endocrine: reports: No Symptoms Reported Hematology: reports: No Symptoms Reported Psychiatric: reports: No Sypmtoms Reported, Judgement Intact, Mood/Affect Appropiate, Orientated x3 Other Systems: Reviewed and Negative Patient History - Patient Medical History Hx Anemia: No Hx Asthma: No Hx Chronic Obstructive Pulmonary Disease (COPD): No Hx Cancer: No Hx Cardiac Disorders: No Hx Congestive Heart Failure: No Hx Hypertension: No Hx Hypercholesterolemia: No Hx Pacemaker: No HX Cerebrovascular Accident: No Hx Seizures: No Hx Dementia: No Hx Diabetes: No Hx Gastrointestinal Disorders: No Hx Liver Disease: No Hx Genitourinary Disorders: No Hx Sexually Transmitted Disorders: No Hx Renal Disease (ESRD): No Hx Thyroid Disease: No Hx Human Immunodeficiency Virus (HIV): No (last 2017) Hx Hepatitis C: No Hx Depression: Yes (no mdication) Hx Suicide Attempt: No Hx Bipolar Disorder: No Hx Schizophrenia: No Other Medical History: no sucidal,no homicidal - Patient Surgical History Past Surgical History: No Hx Neurologic Surgery: No Hx Cataract Extraction: No Hx Cardiac Surgery: No Hx Lung Surgery: No Hx Breast Surgery: No Hx Breast Biopsy: No Hx Abdominal Surgery: No Hx Appendectomy: No Hx Cholecystectomy: No Hx Genitourinary Surgery: No Hx Section: No Hx Orthopedic Surgery: No Anesthesia Reaction: No - PPD History Previous Implant?: Yes Documented Results: Negative w/o proof Implanted On Prior R Admission?: Yes Date: 07/06/17 Results: 0MM PPD to be Administered?: Yes - Smoking Cessation Smoking history: Current some day smoker Have you smoked in the past 12 months: No Aproximately how many cigarettes per day: 3 Cigars Per Day: 0 Hx Chewing Tobacco Use: No Initiated information on smoking cessation: Yes 'Breaking Loose' booklet given: 11/02/18 - Substance & Tx. History Hx Alcohol Use: Yes Hx Substance Use: Yes Substance Use Type: Alcohol, Cocaine, Heroin, Marijuana Hx Substance Use Treatment: Yes ([facility] 01/25/18 01/29/18) - Substances abused Alcohol Substance route: Oral Frequency: Daily Amount used: 4of 16 oz beer Age of first use: 13 Date of last use: 11/01/18 Heroin Substance route: Inhalation Frequency: 3-6 times per week Amount used: 2 bags Age of first use: 21 Date of last use: 10/29/18 Cocaine Substance route: Smoking Frequency: Daily Amount used: 1 Gram Age of first use: 21 Date of last use: 10/29/18 Marijuana/Hashish Substance route: Smoking Frequency: 1-2 times per week Amount used: a dime bag Age of first use: 13 Date of last use: 10/19/18 Family Disease History - Family Disease History Family History: Denies Admission Physical Exam [facility] - Vital Signs Vital Signs: Vital Signs - 24 hr 11/02/18 09:23 Temperature 97.9 F Pulse Rate 58 L Respiratory 18 Rate Blood Pressure 143/87 - Physical General Appearance: Yes: Moderate Distress, Tremorous, Irritable, Sweating, Anxious HEENTM: Yes: Normal ENT Inspection, [place], Pharynx Normal Respiratory: Yes: Lungs Clear, Normal Breath Sounds, No Respiratory Distress Neck: Yes: Within Normal Limits, Supple, Trachea in good position Breast: Yes: Within Normal Limits Cardiology: Yes: Bradycardia Abdominal: Yes: Within Normal Limits, Normal Bowel Sounds, Non Tender, Flat, Soft Genitourinary: Yes: Within Normal Limits Back: Yes: Muscle Spasm Musculoskeletal: Yes: Back pain, Muscle Pain, Muscle weakness Extremities: Yes: Tremors 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 intact, Alert, Motor Strength 5/5 Integumentary: Yes: Dry Lymphatic: Yes: Within Normal Limits - Diagnostic (1) Alcohol dependence with uncomplicated withdrawal Current Visit: No Status: Acute (2) Cocaine dependence Current Visit: No Status: Acute (3) Nicotine dependence Current Visit: No Status: Acute Qualifiers: Nicotine product type: cigarettes Substance use status: uncomplicated Qualified Code(s): F17.210 - Nicotine dependence, cigarettes, uncomplicated (4) Cannabis dependence Current Visit: No Status: Chronic (5) rotator cuff injury of right shoulder Current Visit: No Status: Chronic (6) syncope alcohol related Current Visit: No Status: Suspected (7) Heroin abuse Current Visit: Yes Status: Acute Cleared for Admission [facility] - Detox or Rehab [facility] Level of Care: Medically Managed (urine for drug screen is negative for opiate) Detox Regimen/Protocol: Librium Breathalyzer - Breathalyzer Breathalyzer: 0 Urine Drug Screen - Test Device Lot number: [id number] Expiration date: 06/03/20 - Control Is test valid?: Yes - Results Drug screen NEGATIVE: No Urine drug screen results: [facility]-Cocaine Inpatient Rehab Admission - Rehab Decision to Admit Inpatient rehab admission?: No
[2018-11-02] MEDS ORDERED: chlordiazePOXIDE HCL 25 MG CAPSULE PO PRN (11:04)
[2018-11-02] MEDS ORDERED: MAG HYDROX/AL HYDROX/SIMETH 30 ML UNIT-DOSE CUP PO PRN (11:04)
[2018-11-02] MEDS ORDERED: METHOCARBAMOL 500 MG TABLET PO PRN (11:04)
[2018-11-02] MEDS ORDERED: MAGNESIUM CITRATE 300 ML BOTTLE PO PRN (11:04)
[2018-11-02] MEDS ORDERED: MAGNESIUM HYDROX 2400MG/30ML ORAL SUSPENSION 30 ML CUP PO PRN (11:04)
[2018-11-02] MEDS ORDERED: BISMUTH SUBSALICYLATE 262 MG/15 ML BTL PO PRN (11:04)
[2018-11-02] MEDS ORDERED: MELATONIN 5 MG TABLETS PO PRN (11:04)
[2018-11-02] MEDS ORDERED: hydrOXYzine PAMOATE 25 MG CAPSULE (FP) PO PRN (11:04)
[2018-11-02] MEDS ORDERED: ACETAMINOPHEN 325 MG TABLET (FP) PO PRN ×2 (11:04)
[2018-11-02] MEDS ORDERED: IBUPROFEN 400 MG TABLET (FP) PO PRN (11:04)
[2018-11-02] MEDS ORDERED: MENTHOL/PHENOL 1 EACH UD MM PRN (11:04)
[2018-11-02 14:23] LABS: HEMATOCRIT 40.2 % (35.4-49); HEMOGLOBIN 13.3 GM/dL (11.7-16.9); MCH 30.1 pg (25.7-33.7); MCHC 33.1 g/dl (32.0-35.9); MEAN PLT VOLUME 9.6 fl (7.5-11.1); PLATELET COUNT 236 K/MM3 (134-434); RBC 4.42 M/mm3 (4.00-5.60); WHITE BLOOD COUNT 3.6 K/mm3 (4.0-10.0)
[2018-11-02 14:29] LABS: URINE APPEARANCE CLEAR; URINE BILIRUBIN NEGATIVE (NEGATIVE); URINE COLOR YELLOW; URINE GLUCOSE (UA) NEGATIVE (NEGATIVE); URINE KETONE NEGATIVE (NEGATIVE); URINE LEUK ESTERASE NEGATIVE (NEGATIVE); URINE NITRITE NEGATIVE (NEGATIVE); URINE PROTEIN NEGATIVE (NEGATIVE)
[2018-11-02 14:39] LABS: ALBUMIN 3.6 g/dl (3.4-5.0); ALK PHOS 71 U/L (45-117); ANION GAP 6 MMOL/L (8-16); BILIRUBIN,TOTAL 0.2 mg/dL (0.2-1); BLOOD UREA NITROGEN 15 mg/dL (7-18); CALCIUM 8.9 mg/dL (8.5-10.1); CHLORIDE 107 mmol/L (98-107); CO2 25 mmol/L (21-32); GLUCOSE,RANDOM 77 mg/dL (74-106); SGOT/AST 11 U/L (15-37); SGPT/ALT 15 U/L (13-61); SODIUM 138 mmol/L (136-145)
[2018-11-02] MEDS: chlordiazePOXIDE HCL 25 MG CAPSULE PO SCH ×2 (17:28→22:21)
[2018-11-02] MEDS: THIAMINE HCL 100 MG TABLET (FP) PO SCH (22:23)
[2018-11-03] MEDS: chlordiazePOXIDE HCL 25 MG CAPSULE PO SCH ×2 (06:09→11:03)
[2018-11-03] MEDS: PRENATAL VITAMINS W/ FOLIC ACID TABLET (FP) PO SCH (11:03)
--- NOTE | 2018-11-03 12:10 | PN ---
S CIWA - CIWA Score Nausea/Vomitin Muscle Tremors: 2 Anxiety: 4-Mod. Anxious/Guarded Agitation: 2 Paroxysmal Sweats: 2 Orientation: 0-Oriented Tacttile Disturbances: 1-Very Mild Itch/Numbness Auditory Disturbances: 1-Very Mild Visual Disturbances: 0-None Headache: 0-None Present CIWA-Ar Total Score: 14 BHS Progress Note (SOAP) Subjective: Anxious, Sweating, Tremors, Nausea. Objective: PATIENT A & O X 3, OBSERVED AMBULATING ON UNIT UNASSISTED. IN NO ACUTE DISTRESS. 11/03/18 12:12 Vital Signs Temperature 97.8 F 11/03/18 09:50 Pulse Rate 56 L 11/03/18 09:50 Respiratory Rate 18 11/03/18 09:50 Blood Pressure 131/76 11/03/18 09:50 O2 Sat by Pulse Oximetry (%) Laboratory Tests 11/02/18 11/02/18 11/02/18 11:15 11:15 11:15 WBC 3.6 L RBC 4.42 Hgb 13.3 Hct 40.2 MCV 91.0 MCH 30.1 MCHC 33.1 RDW 14.0 Plt Count 236 MPV 9.6 Sodium 138 Potassium 4.0 Chloride 107 Carbon Dioxide 25 Anion Gap 6 L BUN 15 Creatinine 1.0 Creat Clearance w eGFR 77.87 Random Glucose 77 Calcium 8.9 Total Bilirubin 0.2 AST 11 L ALT 15 Alkaline Phosphatase 71 Total Protein 7.0 Albumin 3.6 Urine Color Urine Appearance Urine pH Ur Specific [place] Urine Protein Urine Glucose (UA) Urine Ketones Urine Blood Urine Nitrite Urine Bilirubin Urine Urobilinogen Ur Leukocyte Esterase RPR Titer Nonreactive HIV 1&2 Antibody Screen HIV P24 Antigen 11/02/18 11/02/18 11:15 13:10 WBC RBC Hgb Hct MCV MCH MCHC RDW Plt Count MPV Sodium Potassium Chloride Carbon Dioxide Anion Gap BUN Creatinine Creat Clearance w eGFR Random Glucose Calcium Total Bilirubin AST ALT Alkaline Phosphatase Total Protein Albumin Urine Color Yellow Urine Appearance Clear Urine pH 6.0 Ur Specific [place] 1.018 Urine Protein Negative Urine Glucose (UA) Negative Urine Ketones Negative Urine Blood Negative Urine Nitrite Negative Urine Bilirubin Negative Urine Urobilinogen 1.0 Ur Leukocyte Esterase Negative RPR Titer HIV 1&2 Antibody Screen Negative HIV P24 Antigen Negative LABS NOTED. Assessment: 11/03/18 12:12 WITHDRAWAL SYMPTOMS. Plan: CONTINUE DETOX. INCREASE DAILY PO FLUID / WATER INTAKE. PATIENT REPORTS THAT CURRENT LIBRIUM DETOX MEDICATION REGIMEN IS CAUSING HIM TO FEEL DROWSY. WITH PATIENT'S VERBAL CONSENT, CURRENT LIBRIUM DETOX REGIMEN MODIFIED DOWN TO SOMEWHAT LOWER DOSAGES / SCHEDULING SO TO HELP REDUCE FEELINGS OF DROWSINESS.
[2018-11-03] MEDS ORDERED: chlordiazePOXIDE HCL 25 MG CAPSULE PO SCH (17:00)
[2018-11-03] MEDS: chlordiazePOXIDE HCL 10 MG CAPSULE PO SCH ×2 (17:52→23:15)
[2018-11-03] MEDS: THIAMINE HCL 100 MG TABLET (FP) PO SCH (23:15)
[2018-11-04] MEDS: chlordiazePOXIDE HCL 10 MG CAPSULE PO SCH (06:30)
[2018-11-04 09:24] VITALS: BP 138/54; PULSE 60; TEMP 96.2
[2018-11-04] MEDS: PRENATAL VITAMINS W/ FOLIC ACID TABLET (FP) PO SCH (10:58)
[2018-11-04] MEDS ORDERED: chlordiazePOXIDE HCL 10 MG CAPSULE PO SCH ×2 (11:00→17:00)
[2018-11-04] MEDS ORDERED: chlordiazePOXIDE HCL 10 MG CAPSULE PO PRN (17:00)
--- NOTE | 2018-11-04 17:48 | PN ---
S CIWA - CIWA Score Nausea/Vomitin-No Nausea/No Vomiting Muscle Tremors: 3 Anxiety: 4-Mod. Anxious/Guarded Agitation: 2 Paroxysmal Sweats: 2 Orientation: 0-Oriented Tacttile Disturbances: 1-Very Mild Itch/Numbness Auditory Disturbances: 0-None Visual Disturbances: 0-None Headache: 0-None Present CIWA-Ar Total Score: 12 BHS Progress Note (SOAP) Subjective: Anxious, Sweating, Tremors. Objective: PATIENT A & O X 3, OBSERVED AMBULATING ON UNIT UNASSISTED. IN NO ACUTE DISTRESS. 11/04/18 17:46 Vital Signs Temperature 96.2 F L 11/04/18 09:23 Pulse Rate 60 11/04/18 09:23 Respiratory Rate 18 11/04/18 09:23 Blood Pressure 138/54 L 11/04/18 09:23 O2 Sat by Pulse Oximetry (%) Laboratory Tests 11/02/18 11/02/18 11/02/18 11:15 11:15 11:15 WBC 3.6 L RBC 4.42 Hgb 13.3 Hct 40.2 MCV 91.0 MCH 30.1 MCHC 33.1 RDW 14.0 Plt Count 236 MPV 9.6 Sodium 138 Potassium 4.0 Chloride 107 Carbon Dioxide 25 Anion Gap 6 L BUN 15 Creatinine 1.0 Creat Clearance w eGFR 77.87 Random Glucose 77 Calcium 8.9 Total Bilirubin 0.2 AST 11 L ALT 15 Alkaline Phosphatase 71 Total Protein 7.0 Albumin 3.6 Urine Color Urine Appearance Urine pH Ur Specific [place] Urine Protein Urine Glucose (UA) Urine Ketones Urine Blood Urine Nitrite Urine Bilirubin Urine Urobilinogen Ur Leukocyte Esterase RPR Titer Nonreactive HIV 1&2 Antibody Screen HIV P24 Antigen 11/02/18 11/02/18 11:15 13:10 WBC RBC Hgb Hct MCV MCH MCHC RDW Plt Count MPV Sodium Potassium Chloride Carbon Dioxide Anion Gap BUN Creatinine Creat Clearance w eGFR Random Glucose Calcium Total Bilirubin AST ALT Alkaline Phosphatase Total Protein Albumin Urine Color Yellow Urine Appearance Clear Urine pH 6.0 Ur Specific [place] 1.018 Urine Protein Negative Urine Glucose (UA) Negative Urine Ketones Negative Urine Blood Negative Urine Nitrite Negative Urine Bilirubin Negative Urine Urobilinogen 1.0 Ur Leukocyte Esterase Negative RPR Titer HIV 1&2 Antibody Screen Negative HIV P24 Antigen Negative LABS NOTED. Assessment: 11/04/18 17:47 WITHDRAWAL SYMPTOMS. LEUKOPENIA. 11/04/18 17:47 Plan: CONTINUE DETOX.
--- NOTE | 2018-11-04 17:56 | DS ---
[facility] Detox Discharge Summary Admission Date: 11/02/18 Discharge Date: 11/04/18 - History Present History: Alcohol Dependence, Cannabis Dependence, Cocaine Dependence, Opioid Dependence Additional Comments: PATIENT DID NOT WISH TO TAKE ANY SPECIFIC DETOX MEDICATION WHILE ADMITTED FOR DETOX DUE TO REPORTED CONCERN OVER FACT THAT HE WOULD HAVE A POSITIVE URINE DRUG SCREEN RESULT WHEN HE RETURNS TO WORK NEXT WEEK (DESPITE FACT THAT, IF COMPLETED FULL DETOX REGIMEN, HE WOULD ABLE TO PRESENT CERTIFICATE OF COMPLETION TO HIS EMPLOYER). HOWEVER, PATIENT STILL REFUSED TO TAKE ANY DETOX MEDICATION AT ALL. PATIENT MADE AWARE THAT [facility] DETOX PROGRAM IS A MEDICALLY MANAGED DETOX PROGRAM AND THAT, THEREFORE, HE WOULD HAVE TO BE DISCHARGED FROM DETOX UNIT. PATIENT VERBALIZED UNDERSTANDING. PATIENT ADVISED TO GO IMMEDIATELY TO NEAREST ER SHOULD ANY INTOLERABLE WITHDRAWAL / DETOX SYMPTOMS DEVELOP AT ANY TIME. PATIENT ALSO ADVISED TO FOLLOW-UP WITH HIS [employer] SOON POSSIBLE FOR GENERAL MEDICAL ASSESSMENT. PATIENT VERBALIZED UNDERSTANDING OF ALL INFORMATION / RECOMMENDATIONS PRESENTED TO HIM PRIOR TO DEPARTURE FROM DETOX UNIT. PATIENT LEFT DETOX UNIT IN STABLE MEDICAL CONDITION. Pertinent Past History: Nicotine Dependence, Weight Loss, Depression, History Of rotator Cuff Injury of Right Shoulder, History Of Syncope. - Physical Exam Results Vital Signs: Vital Signs Temperature 96.2 F L 11/04/18 09:23 Pulse Rate 60 11/04/18 09:23 Respiratory Rate 18 11/04/18 09:23 Blood Pressure 138/54 L 11/04/18 09:23 O2 Sat by Pulse Oximetry (%) Pertinent Admission Physical Exam Findings: WITHDRAWAL SYMPTOMS. Laboratory Tests 11/02/18 11/02/18 11/02/18 11:15 11:15 11:15 WBC 3.6 L RBC 4.42 Hgb 13.3 Hct 40.2 MCV 91.0 MCH 30.1 MCHC 33.1 RDW 14.0 Plt Count 236 MPV 9.6 Sodium 138 Potassium 4.0 Chloride 107 Carbon Dioxide 25 Anion Gap 6 L BUN 15 Creatinine 1.0 Creat Clearance w eGFR 77.87 Random Glucose 77 Calcium 8.9 Total Bilirubin 0.2 AST 11 L ALT 15 Alkaline Phosphatase 71 Total Protein 7.0 Albumin 3.6 Urine Color Urine Appearance Urine pH Ur Specific [place] Urine Protein Urine Glucose (UA) Urine Ketones Urine Blood Urine Nitrite Urine Bilirubin Urine Urobilinogen Ur Leukocyte Esterase RPR Titer Nonreactive HIV 1&2 Antibody Screen HIV P24 Antigen 11/02/18 11/02/18 11:15 13:10 WBC RBC Hgb Hct MCV MCH MCHC RDW Plt Count MPV Sodium Potassium Chloride Carbon Dioxide Anion Gap BUN Creatinine Creat Clearance w eGFR Random Glucose Calcium Total Bilirubin AST ALT Alkaline Phosphatase Total Protein Albumin Urine Color Yellow Urine Appearance Clear Urine pH 6.0 Ur Specific [place] 1.018 Urine Protein Negative Urine Glucose (UA) Negative Urine Ketones Negative Urine Blood Negative Urine Nitrite Negative Urine Bilirubin Negative Urine Urobilinogen 1.0 Ur Leukocyte Esterase Negative RPR Titer HIV 1&2 Antibody Screen Negative HIV P24 Antigen Negative LABS NOTED. - Treatment Hospital Course: Detox Protocol Followed, Detoxed Safely - Diagnosis (1) Alcohol dependence with uncomplicated withdrawal Status: Acute (2) Cocaine dependence Status: Acute (3) Heroin abuse Status: Acute (4) Nicotine dependence Status: Acute Qualifiers: Nicotine product type: cigarettes Substance use status: uncomplicated Qualified Code(s): F17.210 - Nicotine dependence, cigarettes, uncomplicated (5) Cannabis dependence Status: Chronic (6) rotator cuff injury of right shoulder Status: Chronic (7) syncope alcohol related Status: Suspected - AMA Did Patient Leave Against Medical Advice: No
[2018-11-05] MEDS ORDERED: chlordiazePOXIDE HCL 10 MG CAPSULE PO SCH (17:00)
== END 2018-11-04 09:50 | disposition home or self-care (01) | DRG 773 ==
LOC: YASAS 08:36 → Y6N 11:15
PROVIDERS: ADMIT Surgery; ATTEND Surgery
PROC: HZ2ZZZZ Detoxification Services for Substance Abuse Treatment (ICD-10-PCS; principal; 2018-11-02)
DX: F10.230 Alcohol dependence with withdrawal, uncomplicated (principal); F14.20 Cocaine dependence, uncomplicated; F11.20 Opioid dependence, uncomplicated; F12.10 Cannabis abuse, uncomplicated; F17.210 Nicotine dependence, cigarettes, uncomplicated; D72.818 Other decreased white blood cell count; F32.9 Major depressive disorder, single episode, unspecified; R63.4 Abnormal weight loss; Z68.31 Body mass index [BMI] 31.0-31.9, adult
CPT/HCPCS: 36415; 80053; 81003; 85027; 86593; 87389

== ENCOUNTER 2020-10-11 19:13 | Inpatient (IN) | payer OTHER ==
[2020-10-11 19:46] VITALS: BMI 30.9
[2020-10-12] MEDS ORDERED: P-EPHED 60MG/TRIPROLIDI 2.5MG TABLET PO PRN (02:54)
[2020-10-12] MEDS ORDERED: MAGNESIUM CITRATE 300 ML BOTTLE PO PRN (02:54)
[2020-10-12] MEDS ORDERED: MAGNESIUM HYDROX 2400MG/30ML ORAL SUSPENSION 30 ML CUP PO PRN (02:54)
[2020-10-12] MEDS ORDERED: NICOTINE POLACRILEX 2 MG GUM BUC PRN (02:54)
[2020-10-12] MEDS ORDERED: LOPERAMIDE HCL 2 MG CAPSULE PO PRN (02:54)
[2020-10-12] MEDS ORDERED: guaiFENesin 200 MG/10 ML 10 ML UNIT-DOSE CUPS PO PRN (02:54)
[2020-10-12] MEDS ORDERED: MAG HYDROX/AL HYDROX/SIMETH 30 ML UNIT-DOSE CUP PO PRN (02:54)
[2020-10-12] MEDS ORDERED: TUBERCULIN PPD 5 TU/0.1ML VIAL ID ONE (03:28)
[2020-10-12] MEDS: NICOTINE 14 MG/24 HOURS TOPICAL PATCH TD SCH (10:14)
[2020-10-12] MEDS: PRENATAL VITAMINS W/ FOLIC ACID TABLET (FP) PO SCH (10:14)
[2020-10-12 13:27] LABS: HEMATOCRIT 37.1 % (35.4-49); HEMOGLOBIN 12.5 GM/dL (11.7-16.9); MCH 30.8 pg (25.7-33.7); MCHC 33.8 g/dl (32.0-35.9); MEAN CELL VOLUME 91.3 fl (80-96); MEAN PLT VOLUME 9.7 fl (7.5-11.1); PLATELET COUNT 205 K/MM3 (134-434); RBC 4.06 M/mm3 (4.00-5.60); RDW 13.8 % (11.9-15.9); WHITE BLOOD COUNT 3.7 K/mm3 (4.0-10.0)
[2020-10-12 13:37] LABS: BLOOD UREA NITROGEN 20.3 mg/dL (7-18)
[2020-10-12 13:39] LABS: ALBUMIN 3.4 g/dl (3.4-5.0)
[2020-10-12 13:42] LABS: CREATININE 1.1 mg/dL (0.55-1.3)
[2020-10-12 13:43] LABS: BILIRUBIN,TOTAL 0.2 mg/dL (0.2-1); TOT PROT 6.3 g/dl (6.4-8.2)
[2020-10-12 14:39] LABS: PH,URINE 5.5 (5.0-8.0); URINE APPEARANCE CLEAR; URINE BILIRUBIN NEGATIVE (NEGATIVE); URINE COLOR YELLOW; URINE GLUCOSE (UA) NEGATIVE (NEGATIVE); URINE KETONE TRACE (NEGATIVE); URINE LEUK ESTERASE NEGATIVE (NEGATIVE); URINE NITRITE NEGATIVE (NEGATIVE); URINE PROTEIN NEGATIVE (NEGATIVE)
[2020-10-12] MEDS: THIAMINE HCL 100 MG TABLET (FP) PO SCH (21:12)
[2020-10-12] MEDS: MELATONIN 5 MG TABLETS PO SCH (21:12)
[2020-10-13] MEDS ORDERED: TRIMETHOBENZAMIDE HCL 200MG/2ML INJ IM ONE (03:23)
[2020-10-13] MEDS: ACETAMINOPHEN 325 MG TABLET (FP) PO PRN ×2 (06:15→11:32)
[2020-10-13] MEDS: IBUPROFEN 400 MG TABLET (FP) PO PRN (08:35)
[2020-10-13] MEDS: NICOTINE 14 MG/24 HOURS TOPICAL PATCH TD SCH (10:15)
[2020-10-13] MEDS: PRENATAL VITAMINS W/ FOLIC ACID TABLET (FP) PO SCH (10:15)
[2020-10-13] MEDS ORDERED: cloNIDine HCL 0.1 MG TABLET PO ONE ×2 (11:19→14:00)
[2020-10-13] MEDS ORDERED: ONDANSETRON *ODT* 4 MG TABLET SL PRN (13:26)
[2020-10-13] MEDS ORDERED: MASKS NR ONE (14:31)
[2020-10-13] MEDS: MELATONIN 5 MG TABLETS PO SCH (21:23)
[2020-10-13] MEDS: THIAMINE HCL 100 MG TABLET (FP) PO SCH (21:24)
[2020-10-14] MEDS: PRENATAL VITAMINS W/ FOLIC ACID TABLET (FP) PO SCH (10:01)
[2020-10-14] MEDS: NICOTINE 14 MG/24 HOURS TOPICAL PATCH TD SCH (10:01)
[2020-10-14] MEDS: THIAMINE HCL 100 MG TABLET (FP) PO SCH (21:22)
[2020-10-14] MEDS: MELATONIN 5 MG TABLETS PO SCH (21:22)
[2020-10-15] MEDS: PRENATAL VITAMINS W/ FOLIC ACID TABLET (FP) PO SCH (09:51)
[2020-10-15] MEDS: NICOTINE 14 MG/24 HOURS TOPICAL PATCH TD SCH (09:51)
[2020-10-15] MEDS: THIAMINE HCL 100 MG TABLET (FP) PO SCH (21:33)
[2020-10-15] MEDS: MELATONIN 5 MG TABLETS PO SCH (21:33)
[2020-10-16 06:06] LABS: SARS-CoV-2 NAA Not Detected (Not Detected)
[2020-10-16] MEDS: NICOTINE 14 MG/24 HOURS TOPICAL PATCH TD SCH (09:58)
[2020-10-16] MEDS: PRENATAL VITAMINS W/ FOLIC ACID TABLET (FP) PO SCH (09:58)
[2020-10-16] MEDS: IBUPROFEN 400 MG TABLET (FP) PO PRN (10:01)
[2020-10-16] MEDS: MELATONIN 5 MG TABLETS PO SCH (21:50)
[2020-10-16] MEDS: THIAMINE HCL 100 MG TABLET (FP) PO SCH (21:51)
[2020-10-17] MEDS ORDERED: PT OWN MED DRAWER 7, Y5N ONE ×2 (06:22→18:05)
[2020-10-17] MEDS: IBUPROFEN 400 MG TABLET (FP) PO PRN (06:22)
[2020-10-17] MEDS: BENZOCAINE 20 % GEL TUBE MM PRN ×2 (06:23→18:05)
[2020-10-17] MEDS: NICOTINE 14 MG/24 HOURS TOPICAL PATCH TD SCH (09:24)
[2020-10-17] MEDS: PRENATAL VITAMINS W/ FOLIC ACID TABLET (FP) PO SCH (09:25)
[2020-10-17] MEDS: MELATONIN 5 MG TABLETS PO SCH (21:32)
[2020-10-17] MEDS: THIAMINE HCL 100 MG TABLET (FP) PO SCH (21:33)
[2020-10-18] MEDS: PRENATAL VITAMINS W/ FOLIC ACID TABLET (FP) PO SCH (09:45)
[2020-10-18] MEDS: NICOTINE 14 MG/24 HOURS TOPICAL PATCH TD SCH (09:45)
[2020-10-18] MEDS: IBUPROFEN 400 MG TABLET (FP) PO PRN (09:46)
[2020-10-18] MEDS: BENZOCAINE 20 % GEL TUBE MM PRN ×2 (09:47→23:14)
[2020-10-18] MEDS: THIAMINE HCL 100 MG TABLET (FP) PO SCH (21:27)
[2020-10-18] MEDS: MELATONIN 5 MG TABLETS PO SCH (21:27)
[2020-10-19] MEDS ORDERED: PT OWN MED DRAWER 7, Y5N ONE (06:06)
[2020-10-19] MEDS: IBUPROFEN 400 MG TABLET (FP) PO PRN ×2 (06:08→14:31)
[2020-10-19] MEDS: BENZOCAINE 20 % GEL TUBE MM PRN (06:09)
[2020-10-19] MEDS: PRENATAL VITAMINS W/ FOLIC ACID TABLET (FP) PO SCH (09:46)
[2020-10-19] MEDS: NICOTINE 14 MG/24 HOURS TOPICAL PATCH TD SCH (09:46)
[2020-10-19] MEDS: ACETAMINOPHEN 325 MG TABLET (FP) PO PRN (20:18)
[2020-10-19] MEDS: MELATONIN 5 MG TABLETS PO SCH (22:59)
[2020-10-19] MEDS: THIAMINE HCL 100 MG TABLET (FP) PO SCH (22:59)
[2020-10-20] MEDS: IBUPROFEN 400 MG TABLET (FP) PO PRN ×3 (01:28→16:10)
[2020-10-20] MEDS ORDERED: PT OWN MED DRAWER 7, Y5N ONE (06:47)
[2020-10-20] MEDS: BENZOCAINE 20 % GEL TUBE MM PRN (06:47)
[2020-10-20] MEDS: NICOTINE 14 MG/24 HOURS TOPICAL PATCH TD SCH (10:09)
[2020-10-20] MEDS: PRENATAL VITAMINS W/ FOLIC ACID TABLET (FP) PO SCH (10:09)
[2020-10-20] MEDS: MELATONIN 5 MG TABLETS PO SCH (21:22)
[2020-10-20] MEDS: THIAMINE HCL 100 MG TABLET (FP) PO SCH (21:22)
[2020-10-20] MEDS: ACETAMINOPHEN 325 MG TABLET (FP) PO PRN (21:39)
[2020-10-21] MEDS: IBUPROFEN 400 MG TABLET (FP) PO PRN (00:58)
[2020-10-21] MEDS ORDERED: PT OWN MED DRAWER 7, Y5N ONE (02:30)
[2020-10-21] MEDS: ACETAMINOPHEN 325 MG TABLET (FP) PO PRN (02:52)
[2020-10-21 06:53] VITALS: PULSE 56; TEMP 97
[2020-10-21 06:54] VITALS: BP 160/90
== END 2020-10-21 07:15 | disposition home or self-care (01) | DRG 772 ==
LOC: YASAS 19:13 → Y3E 10-12 01:39
PROVIDERS: ADMIT Allergy & Immunology; ATTEND Allergy & Immunology
PROC: HZ42ZZZ Group Counseling for Substance Abuse Treatment, Cognitive-Behavioral (ICD-10-PCS; principal; 2020-10-12)
DX: F11.20 Opioid dependence, uncomplicated (principal); F10.20 Alcohol dependence, uncomplicated; F14.20 Cocaine dependence, uncomplicated; F12.20 Cannabis dependence, uncomplicated; F17.210 Nicotine dependence, cigarettes, uncomplicated; I10 Essential (primary) hypertension; R10.9 Unspecified abdominal pain; R11.2 Nausea with vomiting, unspecified
CPT/HCPCS: 36415; 80053; 81003; 85027; 86780; 93005; 93010; C9803; J0735; Q0162; U0003; U0005

== ENCOUNTER 2020-10-13 15:26 | Emergency (ER) | payer OTHER ==
[2020-10-13 15:59] VITALS: TEMP 98; BMI 30.8
[2020-10-13] MEDS ORDERED: METOCLOPRAMIDE HCL INJECTION 10 MG/2 ML VIAL IVPUSH ONE (16:28)
[2020-10-13] MEDS ORDERED: ACETAMINOPHEN 1000 MG/100 ML VIAL (NON FORMULARY) IVPB ONE (16:28)
[2020-10-13] MEDS ORDERED: METOCLOPRAMIDE HCL INJECTION 10 MG/2 ML VIAL ONE (16:32)
[2020-10-13] MEDS ORDERED: ACETAMINOPHEN INJECTION 100 ML IVPB ONE (16:32)
[2020-10-13 16:50] LABS: BASO % 0.2 % (0-2.0); EOS % 0.3 % (0-4.5); HEMATOCRIT 41.4 % (35.4-49); HEMOGLOBIN 13.9 GM/dL (11.7-16.9); LYMPH % 9.1 % (8-40); MCH 30.8 pg (25.7-33.7); MCHC 33.6 g/dl (32.0-35.9); MEAN CELL VOLUME 91.6 fl (80-96); MEAN PLT VOLUME 8.9 fl (7.5-11.1); MONO % 4.2 % (3.8-10.2); NEUT % 86.2 % (42.8-82.8); PLATELET COUNT 225 K/MM3 (134-434); RBC 4.52 M/mm3 (4.00-5.60); RDW 13.5 % (11.9-15.9); WHITE BLOOD COUNT 7.6 K/mm3 (4.0-10.0)
[2020-10-13 17:55] LABS: BLOOD UREA NITROGEN 13.6 mg/dL (7-18); CALCIUM 9.5 mg/dL (8.5-10.1)
[2020-10-13 17:56] LABS: ALBUMIN 3.8 g/dl (3.4-5.0); MAGNESIUM 2.2 mg/dL (1.8-2.4)
[2020-10-13 18:00] LABS: BILIRUBIN,TOTAL 0.4 mg/dL (0.2-1); CREATININE 1.1 mg/dL (0.55-1.3); PHOSPHOROUS 1.7 mg/dL (2.5-4.9); TOT PROT 7.1 g/dl (6.4-8.2)
[2020-10-13] MEDS ORDERED: NAPH,MB-DB/K PH,MBDB POWDER PACKET PO ONE (18:08)
[2020-10-13] MEDS ORDERED: NAPH,MB-DB/K PH,MBDB POWDER PACKET ONE (18:14)
[2020-10-13] MEDS ORDERED: SODIUM CHLORIDE 1,000 ML IV SCH (18:15)
[2020-10-13 19:26] VITALS: BP 127/69; PULSE 73
== END 2020-10-13 19:27 | disposition short-term general hospital (02) ==
LOC: JER 15:26
PROC: 3E023NZ Introduction of Analgesics, Hypnotics, Sedatives into Muscle, Percutaneous Approach (ICD-10-PCS; principal; 2020-10-13)
PROC: 3E033NZ Introduction of Analgesics, Hypnotics, Sedatives into Peripheral Vein, Percutaneous Approach (ICD-10-PCS; 2020-10-13)
PROC: 3E033GC Introduction of Other Therapeutic Substance into Peripheral Vein, Percutaneous Approach (ICD-10-PCS; 2020-10-13)
DX: R11.10 Vomiting, unspecified (principal); R19.7 Diarrhea, unspecified; G43.909 Migraine, unspecified, not intractable, without status migrainosus
CPT/HCPCS: 36415; 80053; 83735; 84100; 85025; 93005; 93010; 99285-25; J0131

== ENCOUNTER 2020-11-29 17:49 | Inpatient (IN) | payer OTHER ==
[2020-11-29] MEDS ORDERED: hydrOXYzine PAMOATE 25 MG CAPSULE (FP) PO PRN (22:15)
[2020-11-29] MEDS ORDERED: MAGNESIUM CITRATE 300 ML BOTTLE PO PRN (22:15)
[2020-11-29] MEDS ORDERED: NICOTINE POLACRILEX 2 MG GUM BC PRN (22:15)
[2020-11-29] MEDS ORDERED: P-EPHED 60MG/TRIPROLIDI 2.5MG TABLET PO PRN (22:15)
[2020-11-29] MEDS ORDERED: guaiFENesin 200 MG/10 ML 10 ML UNIT-DOSE CUPS PO PRN (22:15)
[2020-11-29] MEDS ORDERED: LOPERAMIDE HCL 2 MG CAPSULE PO PRN (22:15)
[2020-11-29] MEDS ORDERED: MAGNESIUM HYDROX 2400MG/30ML ORAL SUSPENSION 30 ML CUP PO PRN (22:15)
[2020-11-29] MEDS ORDERED: MAG HYDROX/AL HYDROX/SIMETH 30 ML UNIT-DOSE CUP PO PRN (22:15)
[2020-11-29] MEDS ORDERED: ACETAMINOPHEN 325 MG TABLET (FP) PO PRN (22:15)
[2020-11-29 23:31] VITALS: BMI 31.9
[2020-11-30] MEDS: MELATONIN 5 MG TABLETS PO SCH ×2 (02:06→21:27)
[2020-11-30 10:32] LABS: ALBUMIN 3.5 g/dl (3.4-5.0); CALCIUM 8.6 mg/dL (8.5-10.1); HEMATOCRIT 38.6 % (35.4-49); HEMOGLOBIN 13.1 GM/dL (11.7-16.9); MCH 31.3 pg (25.7-33.7); MCHC 34.1 g/dl (32.0-35.9); MEAN CELL VOLUME 91.8 fl (80-96); MEAN PLT VOLUME 9.5 fl (7.5-11.1); PLATELET COUNT 215 K/MM3 (134-434); RDW 13.4 % (11.9-15.9)
[2020-11-30 10:33] LABS: BLOOD UREA NITROGEN 15.6 mg/dL (7-18)
[2020-11-30 10:35] LABS: CREATININE 1.1 mg/dL (0.55-1.3)
[2020-11-30 10:36] LABS: BILIRUBIN,TOTAL 0.3 mg/dL (0.2-1); TOT PROT 6.8 g/dl (6.4-8.2)
[2020-11-30] MEDS: NICOTINE 14 MG/24 HOURS TOPICAL PATCH TD SCH (10:37)
[2020-11-30] MEDS: PRENATAL VITAMINS W/ FOLIC ACID TABLET (FP) PO SCH (10:38)
[2020-11-30] MEDS: THIAMINE HCL 100 MG TABLET (FP) PO SCH (21:27)
[2020-11-30] MEDS: diphenhydrAMINE HCL 25 MG CAPSULE (FP) PO PRN (23:26)
[2020-12-01 01:45] LABS: URINE APPEARANCE CLEAR; URINE BILIRUBIN NEGATIVE (NEGATIVE); URINE COLOR YELLOW; URINE GLUCOSE (UA) NEGATIVE (NEGATIVE); URINE KETONE TRACE (NEGATIVE); URINE LEUK ESTERASE NEGATIVE (NEGATIVE); URINE NITRITE NEGATIVE (NEGATIVE); URINE PROTEIN NEGATIVE (NEGATIVE); URINE UROBILINOGEN 0.2 mg/dL (0.2-1.0)
[2020-12-01] MEDS: NICOTINE 14 MG/24 HOURS TOPICAL PATCH TD SCH (10:06)
[2020-12-01] MEDS: PRENATAL VITAMINS W/ FOLIC ACID TABLET (FP) PO SCH (10:06)
[2020-12-01] MEDS: THIAMINE HCL 100 MG TABLET (FP) PO SCH (22:04)
[2020-12-01] MEDS: MELATONIN 5 MG TABLETS PO SCH (22:04)
[2020-12-02] MEDS: diphenhydrAMINE HCL 25 MG CAPSULE (FP) PO PRN (02:52)
[2020-12-02] MEDS: THIAMINE HCL 100 MG TABLET (FP) PO SCH (21:54)
[2020-12-02] MEDS: MELATONIN 5 MG TABLETS PO SCH (21:54)
[2020-12-03] MEDS: diphenhydrAMINE HCL 25 MG CAPSULE (FP) PO PRN (00:44)
[2020-12-03] MEDS ORDERED: MASKS NR ONE (18:02)
[2020-12-03] MEDS: THIAMINE HCL 100 MG TABLET (FP) PO SCH (21:26)
[2020-12-03] MEDS: MELATONIN 5 MG TABLETS PO SCH (21:26)
[2020-12-04] MEDS: diphenhydrAMINE HCL 25 MG CAPSULE (FP) PO PRN (01:48)
[2020-12-04 10:07] LABS: SARS-CoV-2 NAA Not Detected (Not Detected)
[2020-12-04] MEDS: SUMAtriptan SUCCINATE 50 MG TABLET PO PRN (15:38)
[2020-12-04] MEDS ORDERED: PT OWN MED DRAWER 7, Y5N ONE (15:39)
[2020-12-04] MEDS: IBUPROFEN 400 MG TABLET (FP) PO PRN (17:19)
[2020-12-04] MEDS: MELATONIN 5 MG TABLETS PO SCH (23:01)
[2020-12-04] MEDS: THIAMINE HCL 100 MG TABLET (FP) PO SCH (23:01)
[2020-12-05] MEDS: IBUPROFEN 400 MG TABLET (FP) PO PRN (02:54)
[2020-12-05] MEDS: diphenhydrAMINE HCL 25 MG CAPSULE (FP) PO PRN (02:55)
[2020-12-05] MEDS: MELATONIN 5 MG TABLETS PO SCH (22:16)
[2020-12-05] MEDS: THIAMINE HCL 100 MG TABLET (FP) PO SCH (22:16)
[2020-12-06] MEDS ORDERED: amLODIPine BESYLATE 10 MG TABLET (FP) PO SCH (10:30)
[2020-12-06] MEDS: MELATONIN 5 MG TABLETS PO SCH (22:31)
[2020-12-06] MEDS: THIAMINE HCL 100 MG TABLET (FP) PO SCH (22:32)
[2020-12-06] MEDS ORDERED: PT OWN MED DRAWER 7, Y5N ONE (22:33)
[2020-12-07] MEDS: diphenhydrAMINE HCL 25 MG CAPSULE (FP) PO PRN ×2 (01:32→23:57)
[2020-12-07] MEDS: IBUPROFEN 400 MG TABLET (FP) PO PRN ×3 (01:32→23:57)
[2020-12-07 06:50] VITALS: TEMP 97.7
[2020-12-07] MEDS: SUMAtriptan SUCCINATE 50 MG TABLET PO PRN ×2 (16:23→23:57)
[2020-12-07] MEDS ORDERED: PT OWN MED DRAWER 7, Y5N ONE (16:23)
[2020-12-07] MEDS: THIAMINE HCL 100 MG TABLET (FP) PO SCH (21:51)
[2020-12-07] MEDS: MELATONIN 5 MG TABLETS PO SCH (21:51)
[2020-12-08] MEDS: MELATONIN 5 MG TABLETS PO SCH (21:50)
[2020-12-08] MEDS: THIAMINE HCL 100 MG TABLET (FP) PO SCH (21:51)
[2020-12-09] MEDS ORDERED: PT OWN MED DRAWER 7, Y5N ONE (01:03)
[2020-12-09] MEDS: SUMAtriptan SUCCINATE 50 MG TABLET PO PRN (01:05)
[2020-12-09] MEDS: diphenhydrAMINE HCL 25 MG CAPSULE (FP) PO PRN (01:05)
[2020-12-09] MEDS: IBUPROFEN 400 MG TABLET (FP) PO PRN (01:05)
[2020-12-09 06:07] VITALS: BP 150/82; PULSE 69
== END 2020-12-09 09:50 | disposition home or self-care (01) | DRG 772 ==
LOC: YASAS 17:49 → Y5N 11-30 00:51
PROVIDERS: ADMIT Allergy & Immunology; ATTEND Allergy & Immunology
PROC: HZ42ZZZ Group Counseling for Substance Abuse Treatment, Cognitive-Behavioral (ICD-10-PCS; principal; 2020-11-30)
DX: F10.20 Alcohol dependence, uncomplicated (principal); F11.20 Opioid dependence, uncomplicated; F14.20 Cocaine dependence, uncomplicated; F12.20 Cannabis dependence, uncomplicated; F17.210 Nicotine dependence, cigarettes, uncomplicated; F19.24 Other psychoactive substance dependence with psychoactive substance-induced mood disorder; F32.9 Major depressive disorder, single episode, unspecified; G43.909 Migraine, unspecified, not intractable, without status migrainosus; G47.00 Insomnia, unspecified; R03.0 Elevated blood-pressure reading, without diagnosis of hypertension
CPT/HCPCS: 36415; 80053; 81003; 85027; 86780; C9803; U0003; U0005

== ENCOUNTER 2021-01-23 20:55 | Inpatient (IN) | payer OTHER ==
[2021-01-23 21:23] VITALS: BMI 31.9
[2021-01-24] MEDS ORDERED: MAGNESIUM CITRATE 300 ML BOTTLE PO PRN (00:53)
[2021-01-24] MEDS ORDERED: guaiFENesin 200 MG/10 ML 10 ML UNIT-DOSE CUPS PO PRN (00:53)
[2021-01-24] MEDS ORDERED: MAG HYDROX/AL HYDROX/SIMETH 30 ML UNIT-DOSE CUP PO PRN (00:53)
[2021-01-24] MEDS ORDERED: LOPERAMIDE HCL 2 MG CAPSULE PO PRN (00:53)
[2021-01-24] MEDS ORDERED: P-EPHED 60MG/TRIPROLIDI 2.5MG TABLET PO PRN (00:53)
[2021-01-24] MEDS ORDERED: MAGNESIUM HYDROX 2400MG/30ML ORAL SUSPENSION 30 ML CUP PO PRN (00:53)
[2021-01-24] MEDS ORDERED: ACETAMINOPHEN 325 MG TABLET (FP) PO PRN (00:53)
[2021-01-24] MEDS: PRENATAL VITAMINS W/ FOLIC ACID TABLET (FP) PO SCH (09:44)
[2021-01-24 10:17] LABS: MCH 30.5 pg (25.7-33.7); MCHC 33.4 g/dl (32.0-35.9); MEAN CELL VOLUME 91.5 fl (80-96); MEAN PLT VOLUME 8.8 fl (7.5-11.1); PLATELET COUNT 224 10^3/uL (134-434); RBC 4.27 M/mm3 (4.00-5.60); RDW 14.2 % (11.9-15.9); WHITE BLOOD COUNT 4.3 K/mm3 (4.0-10.0)
[2021-01-24 10:42] LABS: CALCIUM 8.6 mg/dL (8.5-10.1)
[2021-01-24 10:43] LABS: ALBUMIN 3.6 g/dl (3.4-5.0)
[2021-01-24 10:46] LABS: CREATININE 1.1 mg/dL (0.55-1.3)
[2021-01-24 10:47] LABS: BILIRUBIN,TOTAL 0.3 mg/dL (0.2-1)
[2021-01-24 10:48] LABS: TOT PROT 6.7 g/dl (6.4-8.2)
[2021-01-24 13:01] LABS: URINE APPEARANCE CLEAR; URINE BILIRUBIN NEGATIVE (NEGATIVE); URINE COLOR YELLOW; URINE GLUCOSE (UA) NEGATIVE (NEGATIVE); URINE KETONE TRACE (NEGATIVE); URINE LEUK ESTERASE NEGATIVE (NEGATIVE); URINE NITRITE NEGATIVE (NEGATIVE); URINE PROTEIN TRACE (NEGATIVE)
[2021-01-24] MEDS ORDERED: MELATONIN 5 MG TABLETS PO SCH (22:00)
[2021-01-24] MEDS: THIAMINE HCL 100 MG TABLET (FP) PO SCH (22:31)
[2021-01-25] MEDS: PRENATAL VITAMINS W/ FOLIC ACID TABLET (FP) PO SCH (10:48)
[2021-01-25] MEDS: THIAMINE HCL 100 MG TABLET (FP) PO SCH (22:38)
[2021-01-25] MEDS: diphenhydrAMINE HCL 25 MG CAPSULE (FP) PO PRN (23:15)
[2021-01-26] MEDS ORDERED: cloNIDine HCL 0.1 MG TABLET PO ONE (07:38)
[2021-01-26] MEDS: PRENATAL VITAMINS W/ FOLIC ACID TABLET (FP) PO SCH (10:23)
[2021-01-26] MEDS: THIAMINE HCL 100 MG TABLET (FP) PO SCH (21:58)
[2021-01-27] MEDS: diphenhydrAMINE HCL 25 MG CAPSULE (FP) PO PRN (01:20)
[2021-01-27] MEDS: PRENATAL VITAMINS W/ FOLIC ACID TABLET (FP) PO SCH (10:34)
[2021-01-27] MEDS: cloNIDine HCL 0.1 MG TABLET PO PRN (14:46)
[2021-01-27] MEDS: IBUPROFEN 400 MG TABLET (FP) PO PRN (21:39)
[2021-01-27] MEDS: SUMAtriptan SUCCINATE 50 MG TABLET PO PRN (22:20)
[2021-01-27] MEDS: THIAMINE HCL 100 MG TABLET (FP) PO SCH (22:36)
[2021-01-28] MEDS: diphenhydrAMINE HCL 25 MG CAPSULE (FP) PO PRN ×2 (00:45→23:36)
[2021-01-28] MEDS: PRENATAL VITAMINS W/ FOLIC ACID TABLET (FP) PO SCH (10:32)
[2021-01-28] MEDS: THIAMINE HCL 100 MG TABLET (FP) PO SCH (21:45)
[2021-01-28] MEDS ORDERED: PT OWN MED DRAWER 7, Y5N ONE (23:35)
[2021-01-28] MEDS: SUMAtriptan SUCCINATE 50 MG TABLET PO PRN (23:36)
[2021-01-29] MEDS: cloNIDine HCL 0.1 MG TABLET PO PRN (06:10)
[2021-01-29] MEDS: PRENATAL VITAMINS W/ FOLIC ACID TABLET (FP) PO SCH (09:58)
[2021-01-29] MEDS: SUMAtriptan SUCCINATE 50 MG TABLET PO PRN ×2 (11:14→15:45)
[2021-01-29] MEDS: IBUPROFEN 400 MG TABLET (FP) PO PRN (18:12)
[2021-01-29] MEDS: THIAMINE HCL 100 MG TABLET (FP) PO SCH (21:26)
[2021-01-30] MEDS: diphenhydrAMINE HCL 25 MG CAPSULE (FP) PO PRN ×2 (00:20→23:36)
[2021-01-30] MEDS: IBUPROFEN 400 MG TABLET (FP) PO PRN ×3 (00:20→23:37)
[2021-01-30] MEDS: PRENATAL VITAMINS W/ FOLIC ACID TABLET (FP) PO SCH (09:42)
[2021-01-30] MEDS: cloNIDine HCL 0.1 MG TABLET PO PRN (09:43)
[2021-01-30] MEDS: THIAMINE HCL 100 MG TABLET (FP) PO SCH (23:05)
[2021-01-30] MEDS: SUMAtriptan SUCCINATE 50 MG TABLET PO PRN (23:36)
[2021-01-31] MEDS ORDERED: PT OWN MED DRAWER 7, Y5N ONE ×2 (08:37→09:53)
[2021-01-31] MEDS: PRENATAL VITAMINS W/ FOLIC ACID TABLET (FP) PO SCH (09:52)
[2021-01-31] MEDS: SUMAtriptan SUCCINATE 50 MG TABLET PO PRN (09:53)
[2021-01-31] MEDS: THIAMINE HCL 100 MG TABLET (FP) PO SCH (22:11)
[2021-01-31] MEDS: IBUPROFEN 400 MG TABLET (FP) PO PRN (23:48)
[2021-01-31] MEDS: diphenhydrAMINE HCL 25 MG CAPSULE (FP) PO PRN (23:48)
[2021-01-31] MEDS: cloNIDine HCL 0.1 MG TABLET PO PRN (23:48)
[2021-02-01] MEDS: PRENATAL VITAMINS W/ FOLIC ACID TABLET (FP) PO SCH (10:35)
[2021-02-01] MEDS: THIAMINE HCL 100 MG TABLET (FP) PO SCH (21:49)
[2021-02-01] MEDS: SUMAtriptan SUCCINATE 50 MG TABLET PO PRN (23:44)
[2021-02-01] MEDS: IBUPROFEN 400 MG TABLET (FP) PO PRN (23:44)
[2021-02-01] MEDS ORDERED: PT OWN MED DRAWER 7, Y5N ONE (23:44)
[2021-02-01] MEDS: diphenhydrAMINE HCL 25 MG CAPSULE (FP) PO PRN (23:45)
[2021-02-02] MEDS: PRENATAL VITAMINS W/ FOLIC ACID TABLET (FP) PO SCH (10:32)
[2021-02-02] MEDS: THIAMINE HCL 100 MG TABLET (FP) PO SCH (22:07)
[2021-02-02] MEDS ORDERED: PT OWN MED DRAWER 7, Y5N ONE (23:51)
[2021-02-02] MEDS: IBUPROFEN 400 MG TABLET (FP) PO PRN (23:51)
[2021-02-02] MEDS: SUMAtriptan SUCCINATE 50 MG TABLET PO PRN (23:51)
[2021-02-02] MEDS: diphenhydrAMINE HCL 25 MG CAPSULE (FP) PO PRN (23:52)
[2021-02-03 07:25] VITALS: BP 136/86; PULSE 57; TEMP 97.6
[2021-02-03] MEDS: PRENATAL VITAMINS W/ FOLIC ACID TABLET (FP) PO SCH (09:48)
[2021-02-03] MEDS: SUMAtriptan SUCCINATE 50 MG TABLET PO PRN (09:49)
== END 2021-02-03 10:02 | disposition home or self-care (01) | DRG 772 ==
LOC: YASAS 20:55 → Y5N 23:36
PROVIDERS: ADMIT Allergy & Immunology; ATTEND Allergy & Immunology
PROC: HZ42ZZZ Group Counseling for Substance Abuse Treatment, Cognitive-Behavioral (ICD-10-PCS; principal; 2021-01-23)
DX: F10.20 Alcohol dependence, uncomplicated (principal); F14.20 Cocaine dependence, uncomplicated; F12.20 Cannabis dependence, uncomplicated; F17.210 Nicotine dependence, cigarettes, uncomplicated; F19.24 Other psychoactive substance dependence with psychoactive substance-induced mood disorder; F19.282 Other psychoactive substance dependence with psychoactive substance-induced sleep disorder; R03.0 Elevated blood-pressure reading, without diagnosis of hypertension; G47.00 Insomnia, unspecified; R00.1 Bradycardia, unspecified; Z86.69 Personal history of other diseases of the nervous system and sense organs; Z56.0 Unemployment, unspecified
CPT/HCPCS: 36415; 80053; 81003; 85027; 86780; C9803; J0735; U0003; U0005

== ENCOUNTER 2022-01-02 19:28 | Inpatient (IN) | payer OTHER ==
[2022-01-02 22:49] VITALS: BMI 28.1
[2022-01-02] MEDS ORDERED: LOPERAMIDE HCL 2 MG CAPSULE PO PRN (22:58)
[2022-01-02] MEDS ORDERED: P-EPHED 60MG/TRIPROLIDI 2.5MG TABLET PO PRN (22:58)
[2022-01-02] MEDS ORDERED: MAGNESIUM CITRATE 300 ML BOTTLE PO PRN (22:58)
[2022-01-02] MEDS ORDERED: guaiFENesin 200 MG/10 ML 10 ML UNIT-DOSE CUPS PO PRN (22:58)
[2022-01-02] MEDS ORDERED: MAGNESIUM HYDROX 2400MG/30ML ORAL SUSPENSION 30 ML CUP PO PRN (22:58)
[2022-01-02] MEDS ORDERED: NICOTINE 10 MG CARTRIDGE (INHALER) IH PRN (22:58)
[2022-01-03] MEDS: MELATONIN 5 MG TABLETS PO SCH ×2 (04:30→21:11)
[2022-01-03] MEDS ORDERED: TUBERCULIN PPD 5 TU/0.1ML VIAL ID ONE (06:59)
[2022-01-03] MEDS: NICOTINE 14 MG/24 HOURS TOPICAL PATCH TD SCH (09:52)
[2022-01-03] MEDS: PRENATAL VITAMINS W/ FOLIC ACID TABLET (FP) PO SCH (09:52)
[2022-01-03 10:04] LABS: ALBUMIN 3.3 g/dl (3.4-5.0); BLOOD UREA NITROGEN 16.2 mg/dL (7-18); CALCIUM 8.7 mg/dL (8.5-10.1); HEMATOCRIT 35.8 % (35.4-49); HEMOGLOBIN 11.9 GM/dL (11.7-16.9); MCH 29.8 pg (25.7-33.7); MCHC 33.3 g/dl (32.0-35.9); MEAN CELL VOLUME 89.6 fl (80-96); MEAN PLT VOLUME 8.9 fl (7.5-11.1); PLATELET COUNT 244 10^3/uL (134-434); WHITE BLOOD COUNT 4.6 K/mm3 (4.0-10.0)
[2022-01-03 10:06] LABS: URINE APPEARANCE CLEAR; URINE BILIRUBIN NEGATIVE (NEGATIVE); URINE COLOR YELLOW; URINE GLUCOSE (UA) NEGATIVE (NEGATIVE); URINE KETONE TRACE (NEGATIVE); URINE LEUK ESTERASE NEGATIVE (NEGATIVE); URINE NITRITE NEGATIVE (NEGATIVE); URINE PROTEIN NEGATIVE (NEGATIVE)
[2022-01-03 10:08] LABS: TOT PROT 6.4 g/dl (6.4-8.2)
[2022-01-03 10:09] LABS: BILIRUBIN,TOTAL 0.5 mg/dL (0.2-1)
[2022-01-03] MEDS: THIAMINE HCL 100 MG TABLET (FP) PO SCH (21:12)
[2022-01-03] MEDS: IBUPROFEN 400 MG TABLET (FP) PO PRN (21:13)
[2022-01-03] MEDS: MAG HYDROX/AL HYDROX/SIMETH 30 ML UNIT-DOSE CUP PO PRN (21:13)
[2022-01-04] MEDS: MAG HYDROX/AL HYDROX/SIMETH 30 ML UNIT-DOSE CUP PO PRN ×3 (08:42→23:13)
[2022-01-04] MEDS: NICOTINE 14 MG/24 HOURS TOPICAL PATCH TD SCH (10:06)
[2022-01-04] MEDS: PRENATAL VITAMINS W/ FOLIC ACID TABLET (FP) PO SCH (10:06)
[2022-01-04] MEDS: THIAMINE HCL 100 MG TABLET (FP) PO SCH (21:28)
[2022-01-04] MEDS: MELATONIN 5 MG TABLETS PO SCH (21:29)
[2022-01-04] MEDS: IBUPROFEN 400 MG TABLET (FP) PO PRN (21:30)
[2022-01-05] MEDS: PRENATAL VITAMINS W/ FOLIC ACID TABLET (FP) PO SCH (10:10)
[2022-01-05] MEDS: NICOTINE 14 MG/24 HOURS TOPICAL PATCH TD SCH (10:10)
[2022-01-05] MEDS: MAG HYDROX/AL HYDROX/SIMETH 30 ML UNIT-DOSE CUP PO PRN (10:10)
[2022-01-05] MEDS: THIAMINE HCL 100 MG TABLET (FP) PO SCH (21:11)
[2022-01-05] MEDS: MELATONIN 5 MG TABLETS PO SCH (21:11)
[2022-01-05] MEDS: SIMETHICONE 80 MG TAB.CHEW (FP) PO PRN (21:11)
[2022-01-06] MEDS: MAG HYDROX/AL HYDROX/SIMETH 30 ML UNIT-DOSE CUP PO PRN ×2 (06:02→21:05)
[2022-01-06] MEDS: SIMETHICONE 80 MG TAB.CHEW (FP) PO PRN ×2 (09:18→21:05)
[2022-01-06] MEDS: NICOTINE 14 MG/24 HOURS TOPICAL PATCH TD SCH (09:18)
[2022-01-06] MEDS: SUMAtriptan SUCCINATE 50 MG TABLET PO PRN (09:18)
[2022-01-06] MEDS: PRENATAL VITAMINS W/ FOLIC ACID TABLET (FP) PO SCH (09:19)
[2022-01-06] MEDS: MELATONIN 5 MG TABLETS PO SCH (21:04)
[2022-01-06] MEDS: THIAMINE HCL 100 MG TABLET (FP) PO SCH (21:04)
[2022-01-06] MEDS: IBUPROFEN 400 MG TABLET (FP) PO PRN (21:06)
[2022-01-07] MEDS: NICOTINE 14 MG/24 HOURS TOPICAL PATCH TD SCH (09:59)
[2022-01-07] MEDS: PRENATAL VITAMINS W/ FOLIC ACID TABLET (FP) PO SCH (09:59)
[2022-01-07] MEDS ORDERED: cloNIDine HCL 0.1 MG TABLET PO PRN (13:35)
[2022-01-07] MEDS: IBUPROFEN 400 MG TABLET (FP) PO PRN (16:54)
[2022-01-07] MEDS: SUMAtriptan SUCCINATE 50 MG TABLET PO PRN (16:54)
[2022-01-07] MEDS: MELATONIN 5 MG TABLETS PO SCH (21:21)
[2022-01-07] MEDS: THIAMINE HCL 100 MG TABLET (FP) PO SCH (21:22)
[2022-01-08] MEDS: SUMAtriptan SUCCINATE 50 MG TABLET PO PRN (00:25)
[2022-01-08] MEDS: MAG HYDROX/AL HYDROX/SIMETH 30 ML UNIT-DOSE CUP PO PRN (00:25)
[2022-01-08] MEDS: NICOTINE 14 MG/24 HOURS TOPICAL PATCH TD SCH (09:53)
[2022-01-08] MEDS: PRENATAL VITAMINS W/ FOLIC ACID TABLET (FP) PO SCH (09:53)
[2022-01-08] MEDS: THIAMINE HCL 100 MG TABLET (FP) PO SCH (21:31)
[2022-01-08] MEDS: MELATONIN 5 MG TABLETS PO SCH (21:31)
[2022-01-09] MEDS: NICOTINE 14 MG/24 HOURS TOPICAL PATCH TD SCH (10:20)
[2022-01-09] MEDS: PRENATAL VITAMINS W/ FOLIC ACID TABLET (FP) PO SCH (10:20)
[2022-01-09] MEDS: IBUPROFEN 400 MG TABLET (FP) PO PRN (17:06)
[2022-01-09] MEDS: SUMAtriptan SUCCINATE 50 MG TABLET PO PRN (22:53)
[2022-01-09] MEDS: THIAMINE HCL 100 MG TABLET (FP) PO SCH (22:54)
[2022-01-09] MEDS: MELATONIN 5 MG TABLETS PO SCH (22:55)
[2022-01-10] MEDS: PRENATAL VITAMINS W/ FOLIC ACID TABLET (FP) PO SCH (09:54)
[2022-01-10] MEDS: NICOTINE 14 MG/24 HOURS TOPICAL PATCH TD SCH (09:54)
[2022-01-10] MEDS: MELATONIN 5 MG TABLETS PO SCH (21:28)
[2022-01-10] MEDS: THIAMINE HCL 100 MG TABLET (FP) PO SCH (21:28)
[2022-01-11] MEDS: SUMAtriptan SUCCINATE 50 MG TABLET PO PRN (06:26)
[2022-01-11] MEDS: ACETAMINOPHEN 325 MG TABLET (FP) PO PRN (10:05)
[2022-01-11] MEDS: PRENATAL VITAMINS W/ FOLIC ACID TABLET (FP) PO SCH (10:06)
[2022-01-11] MEDS: NICOTINE 14 MG/24 HOURS TOPICAL PATCH TD SCH (10:06)
[2022-01-11] MEDS: MELATONIN 5 MG TABLETS PO SCH (21:31)
[2022-01-11] MEDS: THIAMINE HCL 100 MG TABLET (FP) PO SCH (21:31)
[2022-01-12] MEDS: ACETAMINOPHEN 325 MG TABLET (FP) PO PRN (08:58)
[2022-01-12] MEDS: NICOTINE 14 MG/24 HOURS TOPICAL PATCH TD SCH (10:25)
[2022-01-12] MEDS: PRENATAL VITAMINS W/ FOLIC ACID TABLET (FP) PO SCH (10:25)
[2022-01-12] MEDS: SUMAtriptan SUCCINATE 50 MG TABLET PO PRN (12:33)
[2022-01-12] MEDS: THIAMINE HCL 100 MG TABLET (FP) PO SCH (21:36)
[2022-01-12] MEDS: MELATONIN 5 MG TABLETS PO SCH (21:36)
[2022-01-13] MEDS: SUMAtriptan SUCCINATE 50 MG TABLET PO PRN (00:16)
[2022-01-13 06:38] VITALS: BP 140/87; PULSE 54; TEMP 98
[2022-01-13] MEDS: NICOTINE 14 MG/24 HOURS TOPICAL PATCH TD SCH (09:31)
[2022-01-13] MEDS: PRENATAL VITAMINS W/ FOLIC ACID TABLET (FP) PO SCH (09:32)
== END 2022-01-13 09:40 | disposition home or self-care (01) | DRG 772 ==
LOC: YASAS 19:28 → Y3E 01-03 04:03
PROVIDERS: ADMIT Allergy & Immunology; ATTEND Psychiatry & Neurology Pain Medicine
PROC: HZ42ZZZ Group Counseling for Substance Abuse Treatment, Cognitive-Behavioral (ICD-10-PCS; principal; 2022-01-03)
DX: F14.20 Cocaine dependence, uncomplicated (principal); F17.210 Nicotine dependence, cigarettes, uncomplicated; F19.282 Other psychoactive substance dependence with psychoactive substance-induced sleep disorder; F19.24 Other psychoactive substance dependence with psychoactive substance-induced mood disorder; F32.A Depression, unspecified; G43.909 Migraine, unspecified, not intractable, without status migrainosus; G47.00 Insomnia, unspecified; R03.0 Elevated blood-pressure reading, without diagnosis of hypertension; Z28.310 Unvaccinated for COVID-19
CPT/HCPCS: 36415; 80053; 81003; 85027; 86780; 93005; 93010; C9803-CS; J0735; U0003; U0005

== ENCOUNTER 2022-05-11 13:55 | Inpatient (IN) | payer OTHER ==
[2022-05-11 14:26] VITALS: BMI 27.6
[2022-05-11] MEDS ORDERED: MAG HYDROX/AL HYDROX/SIMETH 30 ML UNIT-DOSE CUP PO PRN (15:43)
[2022-05-11] MEDS ORDERED: BENZOCAINE/MENTHOL (CHLORASEPTIC ) LOZENGE MM PRN (15:43)
[2022-05-11] MEDS ORDERED: NALOXONE HCL (KLOXXADO) 8 MG SPRAY NS PRN (15:43)
[2022-05-11] MEDS ORDERED: ONDANSETRON *ODT* 4 MG TABLET SL PRN (15:43)
[2022-05-11] MEDS ORDERED: DICYCLOMINE HCL 10 MG CAPSULE PO PRN (15:43)
[2022-05-11] MEDS ORDERED: ACETAMINOPHEN 325 MG TABLET (FP) PO PRN ×2 (15:43)
[2022-05-11] MEDS ORDERED: MAGNESIUM CITRATE 300 ML BOTTLE PO PRN (15:43)
[2022-05-11] MEDS ORDERED: METHOCARBAMOL 500 MG TABLET PO PRN (15:43)
[2022-05-11] MEDS ORDERED: BISMUTH SUBSALICYLATE 524 MG/30 ML PO PRN (15:43)
[2022-05-11] MEDS ORDERED: LOPERAMIDE HCL 2 MG CAPSULE PO PRN (15:43)
[2022-05-11] MEDS ORDERED: MAGNESIUM HYDROX 2400MG/30ML ORAL SUSPENSION 30 ML CUP PO PRN (15:43)
[2022-05-11] MEDS ORDERED: IBUPROFEN 600 MG TABLET (FP) PO PRN (15:43)
[2022-05-11] MEDS ORDERED: IBUPROFEN 400 MG TABLET (FP) PO PRN (15:43)
[2022-05-11] MEDS ORDERED: SUMAtriptan SUCCINATE 50 MG TABLET PO PRN (15:52)
[2022-05-11] MEDS: PRENATAL VITAMINS W/ FOLIC ACID TABLET (FP) PO SCH (17:53)
[2022-05-11] MEDS: MELATONIN 5 MG TABLETS PO SCH (22:10)
[2022-05-11] MEDS: THIAMINE HCL 100 MG TABLET (FP) PO SCH (22:11)
[2022-05-12] MEDS: PRENATAL VITAMINS W/ FOLIC ACID TABLET (FP) PO SCH (09:53)
[2022-05-12 10:54] LABS: HEMATOCRIT 37.9 % (35.4-49); MCH 31.1 pg (25.7-33.7); MCHC 34.3 g/dl (32.0-35.9); MEAN CELL VOLUME 90.7 fl (80-96); MEAN PLT VOLUME 8.6 fl (7.5-11.1); PLATELET COUNT 229 10^3/uL (134-434); RBC 4.17 M/mm3 (4.00-5.60); RDW 13.8 % (11.9-15.9); WHITE BLOOD COUNT 3.4 K/mm3 (4.0-10.0)
[2022-05-12 11:22] LABS: ALBUMIN 3.5 g/dl (3.4-5.0); BLOOD UREA NITROGEN 18.3 mg/dL (7-18); CALCIUM 9.1 mg/dL (8.5-10.1)
[2022-05-12 11:25] LABS: CREATININE 1.1 mg/dL (0.55-1.3)
[2022-05-12 11:27] LABS: BILIRUBIN,TOTAL 0.8 mg/dL (0.2-1); TOT PROT 6.7 g/dl (6.4-8.2)
[2022-05-12] MEDS ORDERED: TRIMETHOBENZAMIDE HCL 200MG/2ML INJ IM PRN (12:55)
[2022-05-12] MEDS: hydrOXYzine PAMOATE 25 MG CAPSULE (FP) PO PRN (17:18)
[2022-05-12] MEDS: diazePAM 5 MG TABLET PO PRN ×2 (18:07→23:38)
[2022-05-12] MEDS: diazePAM 5 MG TABLET PO SCH ×2 (18:10→22:44)
[2022-05-12] MEDS ORDERED: cloNIDine HCL 0.1 MG TABLET PO ONE (21:50)
[2022-05-12] MEDS: THIAMINE HCL 100 MG TABLET (FP) PO SCH (22:44)
[2022-05-12] MEDS: MELATONIN 5 MG TABLETS PO SCH (22:44)
[2022-05-13] MEDS: diazePAM 5 MG TABLET PO SCH ×4 (05:52→22:35)
[2022-05-13] MEDS: PRENATAL VITAMINS W/ FOLIC ACID TABLET (FP) PO SCH (11:18)
[2022-05-13] MEDS: hydrOXYzine PAMOATE 25 MG CAPSULE (FP) PO PRN (15:44)
[2022-05-13] MEDS: MELATONIN 5 MG TABLETS PO SCH (22:35)
[2022-05-13] MEDS: THIAMINE HCL 100 MG TABLET (FP) PO SCH (22:37)
[2022-05-14] MEDS: diazePAM 5 MG TABLET PO SCH ×2 (05:31→17:46)
[2022-05-14] MEDS: diazePAM 5 MG TABLET PO PRN (10:21)
[2022-05-14] MEDS: PRENATAL VITAMINS W/ FOLIC ACID TABLET (FP) PO SCH (10:23)
[2022-05-14 21:35] VITALS: RESP 18
[2022-05-14] MEDS ORDERED: diphenhydrAMINE HCL 25 MG CAPSULE (FP) PO PRN (22:00)
[2022-05-14] MEDS: THIAMINE HCL 100 MG TABLET (FP) PO SCH (23:05)
[2022-05-15 05:49] VITALS: PULSE 73
[2022-05-15] MEDS ORDERED: diazePAM 5 MG TABLET PO ONE (06:00)
[2022-05-15 09:21] VITALS: BP 155/88; TEMP 97.5
[2022-05-15] MEDS: PRENATAL VITAMINS W/ FOLIC ACID TABLET (FP) PO SCH (10:27)
== END 2022-05-15 12:39 | disposition home or self-care (01) | DRG 774 ==
LOC: YASAS 13:55 → Y3N 16:14
PROVIDERS: ADMIT Allergy & Immunology; ATTEND Surgery
PROC: HZ2ZZZZ Detoxification Services for Substance Abuse Treatment (ICD-10-PCS; principal; 2022-05-11)
DX: F10.230 Alcohol dependence with withdrawal, uncomplicated (principal); F14.20 Cocaine dependence, uncomplicated; F12.20 Cannabis dependence, uncomplicated; F19.24 Other psychoactive substance dependence with psychoactive substance-induced mood disorder; F41.9 Anxiety disorder, unspecified; E86.0 Dehydration; G47.00 Insomnia, unspecified; Z28.310 Unvaccinated for COVID-19; Z28.9 Immunization not carried out for unspecified reason
CPT/HCPCS: 36415; 80053; 85027; 86780; 87811; C9803-CS; Q0162; U0003; U0005

== ENCOUNTER 2022-05-15 12:50 | Inpatient (IN) | payer OTHER ==
[2022-05-15] MEDS ORDERED: NICOTINE 10 MG CARTRIDGE (INHALER) IH PRN (13:47)
[2022-05-15] MEDS ORDERED: P-EPHED 60MG/TRIPROLIDI 2.5MG TABLET PO PRN (13:47)
[2022-05-15] MEDS ORDERED: ACETAMINOPHEN 325 MG TABLET (FP) PO PRN (13:47)
[2022-05-15] MEDS ORDERED: MAGNESIUM HYDROX 2400MG/30ML ORAL SUSPENSION 30 ML CUP PO PRN (13:47)
[2022-05-15] MEDS ORDERED: LOPERAMIDE HCL 2 MG CAPSULE PO PRN (13:47)
[2022-05-15] MEDS ORDERED: MAG HYDROX/AL HYDROX/SIMETH 30 ML UNIT-DOSE CUP PO PRN (13:47)
[2022-05-15] MEDS ORDERED: MAGNESIUM CITRATE 300 ML BOTTLE PO PRN (13:47)
[2022-05-15] MEDS ORDERED: guaiFENesin 200 MG/10 ML 10 ML UNIT-DOSE CUPS PO PRN (13:47)
[2022-05-15] MEDS ORDERED: BENZOCAINE/MENTHOL (CHLORASEPTIC ) LOZENGE MM PRN (13:47)
[2022-05-15] MEDS ORDERED: hydrOXYzine PAMOATE 25 MG CAPSULE (FP) PO PRN (13:47)
[2022-05-15] MEDS ORDERED: SUMAtriptan SUCCINATE 50 MG TABLET PO PRN (13:49)
[2022-05-15] MEDS: diphenhydrAMINE HCL 25 MG CAPSULE (FP) PO PRN (21:09)
[2022-05-15] MEDS: THIAMINE HCL 100 MG TABLET (FP) PO SCH (21:09)
[2022-05-15] MEDS: MELATONIN 5 MG TABLETS PO SCH (22:58)
[2022-05-16] MEDS: PRENATAL VITAMINS W/ FOLIC ACID TABLET (FP) PO SCH (11:29)
[2022-05-16] MEDS: MELATONIN 5 MG TABLETS PO SCH (22:15)
[2022-05-16] MEDS: IBUPROFEN 400 MG TABLET (FP) PO PRN (22:17)
[2022-05-16] MEDS: THIAMINE HCL 100 MG TABLET (FP) PO SCH (22:28)
[2022-05-17] MEDS: IBUPROFEN 400 MG TABLET (FP) PO PRN ×2 (09:08→17:25)
[2022-05-17] MEDS: PRENATAL VITAMINS W/ FOLIC ACID TABLET (FP) PO SCH (11:09)
[2022-05-17] MEDS: BENZOCAINE 20 % GEL TUBE MM PRN (17:26)
[2022-05-17] MEDS: MELATONIN 5 MG TABLETS PO SCH (22:08)
[2022-05-17] MEDS: THIAMINE HCL 100 MG TABLET (FP) PO SCH (22:09)
[2022-05-18] MEDS: PRENATAL VITAMINS W/ FOLIC ACID TABLET (FP) PO SCH (10:49)
[2022-05-18] MEDS: IBUPROFEN 400 MG TABLET (FP) PO PRN (10:50)
[2022-05-18] MEDS: BENZOCAINE 20 % GEL TUBE MM PRN (10:51)
[2022-05-18] MEDS: SUMAtriptan SUCCINATE 50 MG TABLET PO PRN (16:50)
[2022-05-18] MEDS: MELATONIN 5 MG TABLETS PO SCH (22:00)
[2022-05-18] MEDS: THIAMINE HCL 100 MG TABLET (FP) PO SCH (22:00)
[2022-05-19] MEDS: diphenhydrAMINE HCL 25 MG CAPSULE (FP) PO PRN (00:13)
[2022-05-19] MEDS: IBUPROFEN 400 MG TABLET (FP) PO PRN (00:13)
[2022-05-19] MEDS: BENZOCAINE 20 % GEL TUBE MM PRN ×2 (00:15→17:55)
[2022-05-19] MEDS: SUMAtriptan SUCCINATE 50 MG TABLET PO PRN (09:35)
[2022-05-19] MEDS: PRENATAL VITAMINS W/ FOLIC ACID TABLET (FP) PO SCH (09:36)
[2022-05-19] MEDS ORDERED: IBUPROFEN 600 MG TABLET (FP) PO PRN (12:41)
[2022-05-19] MEDS: THIAMINE HCL 100 MG TABLET (FP) PO SCH (23:49)
[2022-05-19] MEDS: MELATONIN 5 MG TABLETS PO SCH (23:49)
[2022-05-20] MEDS: diphenhydrAMINE HCL 25 MG CAPSULE (FP) PO PRN ×2 (00:58→23:28)
[2022-05-20] MEDS: BENZOCAINE 20 % GEL TUBE MM PRN (00:59)
[2022-05-20] MEDS: PRENATAL VITAMINS W/ FOLIC ACID TABLET (FP) PO SCH (10:39)
[2022-05-20] MEDS: MELATONIN 5 MG TABLETS PO SCH (22:01)
[2022-05-20] MEDS: THIAMINE HCL 100 MG TABLET (FP) PO SCH (22:02)
[2022-05-21] MEDS: PRENATAL VITAMINS W/ FOLIC ACID TABLET (FP) PO SCH (09:55)
[2022-05-21] MEDS: diphenhydrAMINE HCL 25 MG CAPSULE (FP) PO PRN (23:18)
[2022-05-21] MEDS: MELATONIN 5 MG TABLETS PO SCH (23:29)
[2022-05-21] MEDS: THIAMINE HCL 100 MG TABLET (FP) PO SCH (23:29)
[2022-05-22] MEDS: PRENATAL VITAMINS W/ FOLIC ACID TABLET (FP) PO SCH (11:08)
[2022-05-22] MEDS ORDERED: TUBERCULIN PPD 5 TU/0.1ML VIAL ID ONE (13:31)
[2022-05-22] MEDS: THIAMINE HCL 100 MG TABLET (FP) PO SCH (23:04)
[2022-05-22] MEDS: MELATONIN 5 MG TABLETS PO SCH (23:04)
[2022-05-22] MEDS: diphenhydrAMINE HCL 25 MG CAPSULE (FP) PO PRN (23:05)
[2022-05-23] MEDS: PRENATAL VITAMINS W/ FOLIC ACID TABLET (FP) PO SCH (10:22)
[2022-05-23] MEDS: diphenhydrAMINE HCL 25 MG CAPSULE (FP) PO PRN (22:45)
[2022-05-23] MEDS: MELATONIN 5 MG TABLETS PO SCH (23:06)
[2022-05-23] MEDS: THIAMINE HCL 100 MG TABLET (FP) PO SCH (23:07)
[2022-05-24] MEDS: PRENATAL VITAMINS W/ FOLIC ACID TABLET (FP) PO SCH (10:16)
[2022-05-24] MEDS: MELATONIN 5 MG TABLETS PO SCH (23:16)
[2022-05-24] MEDS: THIAMINE HCL 100 MG TABLET (FP) PO SCH (23:16)
[2022-05-24] MEDS: diphenhydrAMINE HCL 25 MG CAPSULE (FP) PO PRN (23:24)
[2022-05-25] MEDS: PRENATAL VITAMINS W/ FOLIC ACID TABLET (FP) PO SCH (10:07)
[2022-05-25] MEDS: MELATONIN 5 MG TABLETS PO SCH (23:03)
[2022-05-25] MEDS: THIAMINE HCL 100 MG TABLET (FP) PO SCH (23:04)
[2022-05-25] MEDS: diphenhydrAMINE HCL 25 MG CAPSULE (FP) PO PRN (23:18)
[2022-05-26 07:03] VITALS: RESP 18
[2022-05-26] MEDS: PRENATAL VITAMINS W/ FOLIC ACID TABLET (FP) PO SCH (10:10)
[2022-05-26] MEDS: THIAMINE HCL 100 MG TABLET (FP) PO SCH (23:06)
[2022-05-26] MEDS: MELATONIN 5 MG TABLETS PO SCH (23:06)
[2022-05-26] MEDS: diphenhydrAMINE HCL 25 MG CAPSULE (FP) PO PRN (23:52)
[2022-05-27] MEDS: PRENATAL VITAMINS W/ FOLIC ACID TABLET (FP) PO SCH (09:35)
[2022-05-27] MEDS: SUMAtriptan SUCCINATE 50 MG TABLET PO PRN (13:45)
[2022-05-27] MEDS: diphenhydrAMINE HCL 25 MG CAPSULE (FP) PO PRN (22:53)
[2022-05-27] MEDS: MELATONIN 5 MG TABLETS PO SCH (23:13)
[2022-05-27] MEDS: THIAMINE HCL 100 MG TABLET (FP) PO SCH (23:13)
[2022-05-28] MEDS: PRENATAL VITAMINS W/ FOLIC ACID TABLET (FP) PO SCH (09:55)
[2022-05-28] MEDS: diphenhydrAMINE HCL 25 MG CAPSULE (FP) PO PRN (23:26)
[2022-05-28] MEDS: MELATONIN 5 MG TABLETS PO SCH (23:37)
[2022-05-28] MEDS: THIAMINE HCL 100 MG TABLET (FP) PO SCH (23:44)
[2022-05-29] MEDS: SUMAtriptan SUCCINATE 50 MG TABLET PO PRN (07:36)
[2022-05-29] MEDS: PRENATAL VITAMINS W/ FOLIC ACID TABLET (FP) PO SCH (10:37)
[2022-05-29] MEDS: diphenhydrAMINE HCL 25 MG CAPSULE (FP) PO PRN (22:55)
[2022-05-29] MEDS: THIAMINE HCL 100 MG TABLET (FP) PO SCH (22:56)
[2022-05-29] MEDS: MELATONIN 5 MG TABLETS PO SCH (22:56)
[2022-05-30] MEDS: PRENATAL VITAMINS W/ FOLIC ACID TABLET (FP) PO SCH (10:02)
[2022-05-30] MEDS: diphenhydrAMINE HCL 25 MG CAPSULE (FP) PO PRN (22:32)
[2022-05-30] MEDS: THIAMINE HCL 100 MG TABLET (FP) PO SCH (22:43)
[2022-05-30] MEDS: MELATONIN 5 MG TABLETS PO SCH (22:43)
[2022-05-31] MEDS: PRENATAL VITAMINS W/ FOLIC ACID TABLET (FP) PO SCH (09:45)
[2022-05-31] MEDS: SUMAtriptan SUCCINATE 50 MG TABLET PO PRN (14:48)
[2022-05-31] MEDS: THIAMINE HCL 100 MG TABLET (FP) PO SCH (22:10)
[2022-05-31] MEDS: MELATONIN 5 MG TABLETS PO SCH (22:10)
[2022-06-01] MEDS: PRENATAL VITAMINS W/ FOLIC ACID TABLET (FP) PO SCH (10:25)
[2022-06-01] MEDS: THIAMINE HCL 100 MG TABLET (FP) PO SCH (22:56)
[2022-06-01] MEDS: MELATONIN 5 MG TABLETS PO SCH (22:56)
[2022-06-01] MEDS: diphenhydrAMINE HCL 25 MG CAPSULE (FP) PO PRN (23:17)
[2022-06-02] MEDS: PRENATAL VITAMINS W/ FOLIC ACID TABLET (FP) PO SCH (09:55)
[2022-06-02] MEDS: SUMAtriptan SUCCINATE 50 MG TABLET PO PRN (12:44)
[2022-06-02] MEDS: MELATONIN 5 MG TABLETS PO SCH (22:00)
[2022-06-02] MEDS: THIAMINE HCL 100 MG TABLET (FP) PO SCH (22:00)
[2022-06-02] MEDS: diphenhydrAMINE HCL 25 MG CAPSULE (FP) PO PRN (23:21)
[2022-06-03] MEDS: PRENATAL VITAMINS W/ FOLIC ACID TABLET (FP) PO SCH (09:35)
[2022-06-03] MEDS: MELATONIN 5 MG TABLETS PO SCH (22:20)
[2022-06-03] MEDS: THIAMINE HCL 100 MG TABLET (FP) PO SCH (22:20)
[2022-06-03] MEDS: diphenhydrAMINE HCL 25 MG CAPSULE (FP) PO PRN (23:22)
[2022-06-04 08:26] VITALS: BP 157/86; PULSE 59; TEMP 98.1
== END 2022-06-04 09:45 | disposition home or self-care (01) | DRG 772 ==
LOC: YASAS 12:50 → Y5N 12:52
PROVIDERS: ADMIT Allergy & Immunology; ATTEND Psychiatry & Neurology Pain Medicine
PROC: HZ42ZZZ Group Counseling for Substance Abuse Treatment, Cognitive-Behavioral (ICD-10-PCS; principal; 2022-05-15)
DX: F10.20 Alcohol dependence, uncomplicated (principal); F14.20 Cocaine dependence, uncomplicated; F12.20 Cannabis dependence, uncomplicated; F19.282 Other psychoactive substance dependence with psychoactive substance-induced sleep disorder; F19.24 Other psychoactive substance dependence with psychoactive substance-induced mood disorder; F32.A Depression, unspecified; F41.9 Anxiety disorder, unspecified; K08.89 Other specified disorders of teeth and supporting structures; Z87.891 Personal history of nicotine dependence

== ENCOUNTER 2022-12-23 | Inpatient (IN) | payer OTHER ==
[2022-12-23 00:33] VITALS: BMI 27.0
[2022-12-23] MEDS ORDERED: MAG HYDROX/AL HYDROX/SIMETH 30 ML UNIT-DOSE CUP PO PRN (02:42)
[2022-12-23] MEDS ORDERED: ONDANSETRON *ODT* 4 MG TABLET SL PRN (02:42)
[2022-12-23] MEDS ORDERED: NALOXONE HCL (KLOXXADO) 8 MG SPRAY NS PRN (02:42)
[2022-12-23] MEDS ORDERED: POLYETHYLENE GLYCOL (HEALTHYLAX) 3350 17 GM PACKET PO PRN (02:42)
[2022-12-23] MEDS ORDERED: guaiFENesin 600 MG TABLET.ER (FP) PO PRN (02:42)
[2022-12-23] MEDS ORDERED: NALOXONE HCL 0.4 MG/ML VIAL IM PRN (02:42)
[2022-12-23] MEDS ORDERED: BENZOCAINE/MENTHOL (CHLORASEPTIC ) LOZENGE MM PRN (02:42)
[2022-12-23] MEDS ORDERED: ACETAMINOPHEN 325 MG TABLET (FP) PO PRN (02:42)
[2022-12-23] MEDS ORDERED: DICYCLOMINE HCL 10 MG CAPSULE PO PRN (02:42)
[2022-12-23] MEDS ORDERED: IBUPROFEN 400 MG TABLET (FP) PO PRN (02:42)
[2022-12-23] MEDS ORDERED: LOPERAMIDE HCL 2 MG CAPSULE PO PRN (02:42)
[2022-12-23] MEDS ORDERED: BISMUTH SUBSALICYLATE 524 MG/30 ML PO PRN (02:42)
[2022-12-23] MEDS ORDERED: MAGNESIUM HYDROX 2400MG/30ML ORAL SUSPENSION 30 ML CUP PO PRN (02:42)
[2022-12-23] MEDS ORDERED: BENZONATATE 200 MG CAPSULE PO PRN (02:42)
[2022-12-23] MEDS ORDERED: NICOTINE 10 MG CARTRIDGE (INHALER) IH PRN (02:42)
[2022-12-23] MEDS ORDERED: diazePAM 5 MG TABLET PO PRN (08:48)
[2022-12-23] MEDS: PRENATAL VITAMINS W/ FOLIC ACID TABLET (FP) PO SCH (10:14)
[2022-12-23] MEDS: IBUPROFEN 600 MG TABLET (FP) PO PRN (10:15)
[2022-12-23] MEDS: METHOCARBAMOL 500 MG TABLET PO PRN (10:15)
[2022-12-23] MEDS: diazePAM 5 MG TABLET PO SCH ×3 (10:16→22:25)
[2022-12-23 11:37] LABS: HEMATOCRIT 38.4 % (35.4-49); HEMOGLOBIN 12.5 GM/dL (11.7-16.9); MCH 29.5 pg (25.7-33.7); MCHC 32.6 g/dl (32.0-35.9); MEAN CELL VOLUME 90.6 fl (80-96); MEAN PLT VOLUME 9.4 fl (7.5-11.1); PLATELET COUNT 250 10^3/uL (134-434); RBC 4.24 M/mm3 (4.00-5.60); RDW 13.5 % (11.9-15.9); WHITE BLOOD COUNT 4.9 K/mm3 (4.0-10.0)
[2022-12-23 11:42] LABS: POTASSIUM 3.4 mmol/L (3.5-5.1)
[2022-12-23 11:49] LABS: CALCIUM 9.1 mg/dL (8.5-10.1)
[2022-12-23 11:50] LABS: ALBUMIN 3.6 g/dl (3.4-5.0); BLOOD UREA NITROGEN 20.9 mg/dL (7-18)
[2022-12-23 11:55] LABS: BILIRUBIN,TOTAL 0.2 mg/dL (0.2-1)
[2022-12-23] MEDS ORDERED: MELATONIN 5 MG TABLETS PO SCH (22:00)
[2022-12-23] MEDS: THIAMINE HCL 100 MG TABLET (FP) PO SCH (22:25)
[2022-12-23] MEDS: diphenhydrAMINE HCL 25 MG CAPSULE (FP) PO PRN (22:27)
[2022-12-24] MEDS: diazePAM 5 MG TABLET PO SCH ×4 (05:50→23:03)
[2022-12-24] MEDS: amLODIPine BESYLATE 5 MG TABLET (FP) PO SCH (10:37)
[2022-12-24] MEDS: PRENATAL VITAMINS W/ FOLIC ACID TABLET (FP) PO SCH (10:37)
[2022-12-24] MEDS ORDERED: cloNIDine HCL 0.1 MG TABLET PO PRN (11:04)
[2022-12-24] MEDS: diphenhydrAMINE HCL 25 MG CAPSULE (FP) PO PRN (23:03)
[2022-12-24] MEDS: THIAMINE HCL 100 MG TABLET (FP) PO SCH (23:06)
[2022-12-25] MEDS: diazePAM 5 MG TABLET PO SCH ×3 (05:08→22:37)
[2022-12-25] MEDS: IBUPROFEN 600 MG TABLET (FP) PO PRN (05:09)
[2022-12-25] MEDS: amLODIPine BESYLATE 5 MG TABLET (FP) PO SCH (10:37)
[2022-12-25] MEDS: PRENATAL VITAMINS W/ FOLIC ACID TABLET (FP) PO SCH (10:37)
[2022-12-25] MEDS: METHOCARBAMOL 500 MG TABLET PO PRN (10:37)
[2022-12-25] MEDS: diphenhydrAMINE HCL 25 MG CAPSULE (FP) PO PRN (22:39)
[2022-12-25] MEDS: THIAMINE HCL 100 MG TABLET (FP) PO SCH (22:42)
[2022-12-26] MEDS: diazePAM 5 MG TABLET PO SCH ×2 (06:39→17:45)
[2022-12-26] MEDS: PRENATAL VITAMINS W/ FOLIC ACID TABLET (FP) PO SCH (10:44)
[2022-12-26] MEDS: amLODIPine BESYLATE 5 MG TABLET (FP) PO SCH (10:45)
[2022-12-26] MEDS: IBUPROFEN 600 MG TABLET (FP) PO PRN (22:55)
[2022-12-26] MEDS: diphenhydrAMINE HCL 25 MG CAPSULE (FP) PO PRN (22:55)
[2022-12-26] MEDS: THIAMINE HCL 100 MG TABLET (FP) PO SCH (23:27)
[2022-12-27] MEDS ORDERED: diazePAM 5 MG TABLET PO ONE (06:00)
[2022-12-27] MEDS ORDERED: amLODIPine BESYLATE 10 MG TABLET (FP) PO SCH (09:35)
[2022-12-27 10:58] VITALS: BP 150/95; PULSE 70; RESP 18; TEMP 97.7
[2022-12-27] MEDS: PRENATAL VITAMINS W/ FOLIC ACID TABLET (FP) PO SCH (11:42)
== END 2022-12-27 12:19 | disposition other institution (70) | DRG 774 ==
LOC: YASAS → Y6N 04:50
PROVIDERS: ADMIT Allergy & Immunology; ATTEND Surgery
PROC: HZ2ZZZZ Detoxification Services for Substance Abuse Treatment (ICD-10-PCS; principal; 2022-12-23)
DX: F10.230 Alcohol dependence with withdrawal, uncomplicated (principal); F14.20 Cocaine dependence, uncomplicated; F12.20 Cannabis dependence, uncomplicated; F17.210 Nicotine dependence, cigarettes, uncomplicated; F19.280 Other psychoactive substance dependence with psychoactive substance-induced anxiety disorder; F19.282 Other psychoactive substance dependence with psychoactive substance-induced sleep disorder; F41.9 Anxiety disorder, unspecified; G47.00 Insomnia, unspecified; I10 Essential (primary) hypertension; Z86.69 Personal history of other diseases of the nervous system and sense organs
CPT/HCPCS: 36415; 80053; 85027; 86780; 87635; 87811; Q0162

== ENCOUNTER 2022-12-27 12:25 | Inpatient (IN) | payer OTHER ==
[~2022-12-27 12:25] MED LIST: AMMONIUM LACTATE 12% LOTION 225 GM BOTTLE TP PRN; BENZOCAINE/MENTHOL (CHLORASEPTIC ) LOZENGE MM PRN; BENZONATATE 200 MG CAPSULE PO PRN; COLLOIDAL OATMEAL 1 BAR EACH TP PRN; IBUPROFEN 600 MG TABLET (FP) PO PRN; LOPERAMIDE HCL 2 MG CAPSULE PO PRN; MAG HYDROX/AL HYDROX/SIMETH 30 ML UNIT-DOSE CUP PO PRN; MAGNESIUM HYDROX 2400MG/30ML ORAL SUSPENSION 30 ML CUP PO PRN; NICOTINE 10 MG CARTRIDGE (INHALER) IH PRN; NICOTINE 7 MG/24 HOURS TOPICAL PATCH TD PRN; NICOTINE POLACRILEX 2 MG GUM BUC PRN; POLYETHYLENE GLYCOL (HEALTHYLAX) 3350 17 GM PACKET PO PRN; guaiFENesin 600 MG TABLET.ER (FP) PO PRN; hydrOXYzine PAMOATE 25 MG CAPSULE (FP) PO PRN
[2022-12-27] MEDS: THIAMINE HCL 100 MG TABLET (FP) PO SCH (23:08)
[2022-12-27] MEDS: diphenhydrAMINE HCL 25 MG CAPSULE (FP) PO PRN (23:31)
[2022-12-27] MEDS: MELATONIN 5 MG TABLETS PO SCH (23:31)
[2022-12-28] MEDS ORDERED: PRENATAL VITAMINS W/ FOLIC ACID TABLET (FP) PO SCH (10:00)
[2022-12-28] MEDS ORDERED: ONDANSETRON *ODT* 4 MG TABLET SL PRN (10:15)
[2022-12-28] MEDS: amLODIPine BESYLATE 10 MG TABLET (FP) PO SCH (10:56)
[2022-12-28] MEDS ORDERED: PRENATAL VITAMINS W/ FOLIC ACID TABLET (FP) PO PRN (15:52)
[2022-12-28] MEDS: THIAMINE HCL 100 MG TABLET (FP) PO SCH (21:37)
[2022-12-28] MEDS: MELATONIN 5 MG TABLETS PO SCH (21:37)
[2022-12-28] MEDS: diphenhydrAMINE HCL 25 MG CAPSULE (FP) PO PRN (21:37)
[2022-12-28] MEDS: METHOCARBAMOL 500 MG TABLET PO PRN (21:37)
[2022-12-29] MEDS: amLODIPine BESYLATE 10 MG TABLET (FP) PO SCH (09:48)
[2022-12-29] MEDS: SUMAtriptan SUCCINATE 50 MG TABLET PO PRN ×2 (14:37→23:23)
[2022-12-29] MEDS: IBUPROFEN 400 MG TABLET (FP) PO PRN (14:37)
[2022-12-29] MEDS: MELATONIN 5 MG TABLETS PO SCH (23:01)
[2022-12-29] MEDS: THIAMINE HCL 100 MG TABLET (FP) PO SCH (23:02)
[2022-12-29] MEDS: METHOCARBAMOL 500 MG TABLET PO PRN (23:23)
[2022-12-30] MEDS: IBUPROFEN 400 MG TABLET (FP) PO PRN ×2 (06:09→17:03)
[2022-12-30] MEDS: amLODIPine BESYLATE 10 MG TABLET (FP) PO SCH (09:45)
[2022-12-30] MEDS: SUMAtriptan SUCCINATE 50 MG TABLET PO PRN (17:03)
[2022-12-30] MEDS: diphenhydrAMINE HCL 25 MG CAPSULE (FP) PO PRN (22:56)
[2022-12-30] MEDS: THIAMINE HCL 100 MG TABLET (FP) PO SCH (22:56)
[2022-12-30] MEDS: MELATONIN 5 MG TABLETS PO SCH (23:48)
[2022-12-31] MEDS: IBUPROFEN 400 MG TABLET (FP) PO PRN (06:14)
[2022-12-31] MEDS: BENZOCAINE 20 % GEL TUBE MM PRN (06:14)
[2022-12-31] MEDS: amLODIPine BESYLATE 10 MG TABLET (FP) PO SCH (10:17)
[2022-12-31] MEDS: THIAMINE HCL 100 MG TABLET (FP) PO SCH (22:59)
[2022-12-31] MEDS: MELATONIN 5 MG TABLETS PO SCH (22:59)
[2022-12-31] MEDS: METHOCARBAMOL 500 MG TABLET PO PRN (22:59)
[2022-12-31] MEDS: diphenhydrAMINE HCL 25 MG CAPSULE (FP) PO PRN (22:59)
[2023-01-01] MEDS: BENZOCAINE 20 % GEL TUBE MM PRN (06:38)
[2023-01-01] MEDS: amLODIPine BESYLATE 10 MG TABLET (FP) PO SCH (11:14)
[2023-01-01] MEDS ORDERED: amLODIPine BESYLATE 10 MG TABLET (FP) PO ONE (11:30)
[2023-01-01] MEDS: diphenhydrAMINE HCL 25 MG CAPSULE (FP) PO PRN (22:58)
[2023-01-01] MEDS: MELATONIN 5 MG TABLETS PO SCH (22:59)
[2023-01-01] MEDS: THIAMINE HCL 100 MG TABLET (FP) PO SCH (22:59)
[2023-01-02] MEDS: amLODIPine BESYLATE 10 MG TABLET (FP) PO SCH (10:55)
[2023-01-02] MEDS: diphenhydrAMINE HCL 25 MG CAPSULE (FP) PO PRN (21:36)
[2023-01-02] MEDS: MELATONIN 5 MG TABLETS PO SCH (21:37)
[2023-01-02] MEDS: THIAMINE HCL 100 MG TABLET (FP) PO SCH (21:37)
[2023-01-02] MEDS: SUMAtriptan SUCCINATE 50 MG TABLET PO PRN (23:16)
[2023-01-02] MEDS: IBUPROFEN 400 MG TABLET (FP) PO PRN (23:16)
[2023-01-03] MEDS: amLODIPine BESYLATE 10 MG TABLET (FP) PO SCH (09:46)
[2023-01-03] MEDS: diphenhydrAMINE HCL 25 MG CAPSULE (FP) PO PRN (21:46)
[2023-01-03] MEDS: SUMAtriptan SUCCINATE 50 MG TABLET PO PRN (21:47)
[2023-01-03] MEDS: THIAMINE HCL 100 MG TABLET (FP) PO SCH (21:47)
[2023-01-03] MEDS: ACETAMINOPHEN 325 MG TABLET (FP) PO PRN (21:47)
[2023-01-03] MEDS: MELATONIN 5 MG TABLETS PO SCH (21:49)
[2023-01-04] MEDS: amLODIPine BESYLATE 10 MG TABLET (FP) PO SCH (09:32)
[2023-01-04] MEDS: MELATONIN 5 MG TABLETS PO SCH (23:20)
[2023-01-04] MEDS: diphenhydrAMINE HCL 25 MG CAPSULE (FP) PO PRN (23:20)
[2023-01-04] MEDS: THIAMINE HCL 100 MG TABLET (FP) PO SCH (23:21)
[2023-01-05] MEDS: amLODIPine BESYLATE 10 MG TABLET (FP) PO SCH (09:49)
[2023-01-05] MEDS: SUMAtriptan SUCCINATE 50 MG TABLET PO PRN (21:47)
[2023-01-05] MEDS: MELATONIN 5 MG TABLETS PO SCH (21:47)
[2023-01-05] MEDS: THIAMINE HCL 100 MG TABLET (FP) PO SCH (21:48)
[2023-01-05] MEDS: diphenhydrAMINE HCL 25 MG CAPSULE (FP) PO PRN (21:48)
[2023-01-05] MEDS: BENZOCAINE 20 % GEL TUBE MM PRN (21:49)
[2023-01-05] MEDS: ACETAMINOPHEN 325 MG TABLET (FP) PO PRN (21:51)
[2023-01-06 06:35] VITALS: RESP 16; TEMP 98.1
[2023-01-06] MEDS: amLODIPine BESYLATE 10 MG TABLET (FP) PO SCH (10:08)
[2023-01-06] MEDS: THIAMINE HCL 100 MG TABLET (FP) PO SCH (22:57)
[2023-01-06] MEDS: MELATONIN 5 MG TABLETS PO SCH (23:54)
[2023-01-06] MEDS: diphenhydrAMINE HCL 25 MG CAPSULE (FP) PO PRN (23:54)
[2023-01-07] MEDS: amLODIPine BESYLATE 10 MG TABLET (FP) PO SCH (09:02)
[2023-01-07 09:18] VITALS: BP 151/81; PULSE 87
== END 2023-01-07 09:11 | disposition home or self-care (01) | DRG 772 ==
LOC: YASAS 12:25 → Y3E 12:26
PROVIDERS: ADMIT Allergy & Immunology; ATTEND Psychiatry & Neurology Pain Medicine
PROC: HZ42ZZZ Group Counseling for Substance Abuse Treatment, Cognitive-Behavioral (ICD-10-PCS; principal; 2022-12-27)
DX: F10.20 Alcohol dependence, uncomplicated (principal); F14.20 Cocaine dependence, uncomplicated; F12.20 Cannabis dependence, uncomplicated; F17.210 Nicotine dependence, cigarettes, uncomplicated; I10 Essential (primary) hypertension; K03.81 Cracked tooth; G43.909 Migraine, unspecified, not intractable, without status migrainosus; G47.00 Insomnia, unspecified
CPT/HCPCS: Q0162

== ENCOUNTER 2023-12-28 20:20 | Inpatient (IN) | payer OTHER ==
[2023-12-28 20:52] VITALS: BMI 29.7
[2023-12-28] MEDS ORDERED: IBUPROFEN 600 MG TABLET (FP) PO PRN (22:06)
[2023-12-28] MEDS ORDERED: guaiFENesin 600 MG TABLET.ER (FP) PO PRN (22:06)
[2023-12-28] MEDS ORDERED: POLYETHYLENE GLYCOL (HEALTHYLAX) 3350 17 GM PACKET PO PRN (22:06)
[2023-12-28] MEDS ORDERED: BENZONATATE 200 MG CAPSULE PO PRN (22:06)
[2023-12-28] MEDS ORDERED: BENZOCAINE/MENTHOL (CHLORASEPTIC ) LOZENGE MM PRN (22:06)
[2023-12-28] MEDS ORDERED: BISACODYL 5 MG TABLET.DR (FP) PO PRN (22:06)
[2023-12-28] MEDS ORDERED: MAGNESIUM HYDROX 2400MG/30ML ORAL SUSPENSION 30 ML CUP PO PRN (22:06)
[2023-12-28] MEDS ORDERED: LOPERAMIDE HCL 2 MG CAPSULE PO PRN (22:06)
[2023-12-28] MEDS ORDERED: DOCUSATE SODIUM 100 MG CAPSULE (FP) PO PRN (22:06)
[2023-12-28] MEDS ORDERED: IBUPROFEN 400 MG TABLET (FP) PO PRN (22:06)
[2023-12-28] MEDS: MELATONIN 5 MG TABLETS PO SCH (23:20)
[2023-12-29] MEDS ORDERED: TUBERCULIN PPD 5 TU/0.1ML VIAL ID ONE (10:55)
[2023-12-29] MEDS: PRENATAL VITAMINS W/ FOLIC ACID TABLET (FP) PO SCH (10:56)
[2023-12-29] MEDS: TUBERCULIN PPD 5 TU/0.1ML SYRINGE (IN PATIENT USE ONLY) ID ONE (10:56)
[2023-12-29 11:39] LABS: URINE APPEARANCE CLEAR; URINE BILIRUBIN NEGATIVE (NEGATIVE); URINE COLOR YELLOW; URINE GLUCOSE (UA) NEGATIVE (NEGATIVE); URINE KETONE TRACE (NEGATIVE); URINE LEUK ESTERASE NEGATIVE (NEGATIVE); URINE NITRITE NEGATIVE (NEGATIVE); URINE PROTEIN NEGATIVE (NEGATIVE)
[2023-12-29 13:41] LABS: HEMATOCRIT 36.4 % (35.4-49); HEMOGLOBIN 12.1 GM/dL (11.7-16.9); MCH 30.5 pg (25.7-33.7); MCHC 33.3 g/dl (32.0-35.9); MEAN CELL VOLUME 91.5 fl (80-96); MEAN PLT VOLUME 8.9 fl (7.5-11.1); PLATELET COUNT 202 10^3/uL (134-434); RBC 3.98 M/mm3 (4.00-5.60); WHITE BLOOD COUNT 4.1 K/mm3 (4.0-10.0)
[2023-12-29 13:44] LABS: CHLORIDE 106 mmol/L (98-107); SODIUM 141 mmol/L (136-145)
[2023-12-29 13:49] LABS: ALBUMIN 3.2 g/dl (3.4-5.0); CALCIUM 8.9 mg/dL (8.5-10.1)
[2023-12-29 13:50] LABS: ANION GAP 3 mmol/L (4-13); CO2 32 mmol/L (21-32); GLUCOSE,RANDOM 82 mg/dL (74-106)
[2023-12-29 13:52] LABS: SGPT/ALT 9 U/L (13-61)
[2023-12-29 13:53] LABS: SGOT/AST 10 U/L (15-37)
[2023-12-29 13:54] LABS: BILIRUBIN,TOTAL 0.3 mg/dL (0.2-1); TOT PROT 5.9 g/dl (6.4-8.2)
[2023-12-29 13:55] LABS: ALK PHOS 66 U/L (45-117)
[2023-12-29 14:40] LABS: SYPHILIS W/ RPR CONF NON-REACTIVE (NONREACTIVE)
[2023-12-29] MEDS ORDERED: diphenhydrAMINE HCL 25 MG CAPSULE (FP) PO ONE (21:03)
[2023-12-29] MEDS: diphenhydrAMINE HCL 50 MG CAPSULE PO SCH (21:07)
[2023-12-29] MEDS: THIAMINE 100 MG TABLET PO SCH (21:07)
[2023-12-30] MEDS ORDERED: diphenhydrAMINE HCL 25 MG CAPSULE (FP) PO ONE (21:19)
[2023-12-31] MEDS ORDERED: diphenhydrAMINE HCL 25 MG CAPSULE (FP) PO ONE (23:12)
[2023-12-31] MEDS: IBUPROFEN 600 MG TABLET (FP) PO PRN (23:14)
[2024-01-01] MEDS: MAG HYDROX/AL HYDROX/SIMETH 30 ML UNIT-DOSE CUP PO PRN (11:25)
[2024-01-03] MEDS: IBUPROFEN 400 MG TABLET (FP) PO PRN (17:04)
[2024-01-03] MEDS ORDERED: diphenhydrAMINE HCL 25 MG CAPSULE (FP) PO ONE (21:18)
[2024-01-03] MEDS: SUMAtriptan SUCCINATE 50 MG TABLET PO PRN (21:20)
[2024-01-04] MEDS ORDERED: diphenhydrAMINE HCL 25 MG CAPSULE (FP) PO ONE (21:22)
[2024-01-05] MEDS ORDERED: diphenhydrAMINE HCL 25 MG CAPSULE (FP) PO ONE (21:15)
[2024-01-06] MEDS ORDERED: diphenhydrAMINE HCL 25 MG CAPSULE (FP) PO ONE (21:19)
[2024-01-08] MEDS ORDERED: diphenhydrAMINE HCL 25 MG CAPSULE (FP) PO ONE (19:32)
[2024-01-09] MEDS: cloNIDine HCL 0.1 MG TABLET PO ONE (23:04)
[2024-01-09] MEDS: ACETAMINOPHEN 325 MG TABLET (FP) PO PRN (23:05)
[2024-01-10] MEDS ORDERED: diphenhydrAMINE HCL 25 MG CAPSULE (FP) PO ONE (21:34)
[2024-01-11] MEDS: cloNIDine HCL 0.1 MG TABLET PO ONE (07:00)
[2024-01-11] MEDS ORDERED: PRENATAL VITAMINS W/ FOLIC ACID TABLET (FP) PO PRN (11:20)
[2024-01-11] MEDS: amLODIPine BESYLATE 10 MG TABLET (FP) PO SCH (12:00)
[2024-01-11] MEDS ORDERED: diphenhydrAMINE HCL 25 MG CAPSULE (FP) PO ONE (21:14)
[2024-01-13] MEDS ORDERED: amLODIPine BESYLATE 5 MG TABLET (FP) PO SCH (15:07)
[2024-01-14] MEDS: amLODIPine BESYLATE 10 MG TABLET (FP) PO SCH (10:01)
[2024-01-14] MEDS: LISINOPRIL 10 MG TABLET PO SCH (19:41)
[2024-01-14] MEDS ORDERED: diphenhydrAMINE HCL 25 MG CAPSULE (FP) PO ONE (21:16)
[2024-01-16 09:07] VITALS: RESP 18
[2024-01-17 06:59] VITALS: TEMP 97.3
[2024-01-17 09:44] VITALS: BP 143/86; PULSE 67
== END 2024-01-17 11:21 | disposition home or self-care (01) | DRG 772 ==
LOC: YASAS 20:20 → Y3W 22:21
PROVIDERS: ADMIT Allergy & Immunology; ATTEND Psychiatry & Neurology Pain Medicine
PROC: HZ42ZZZ Group Counseling for Substance Abuse Treatment, Cognitive-Behavioral (ICD-10-PCS; principal; 2023-12-28)
DX: F14.20 Cocaine dependence, uncomplicated (principal); F10.20 Alcohol dependence, uncomplicated; F17.210 Nicotine dependence, cigarettes, uncomplicated; G47.00 Insomnia, unspecified; G43.109 Migraine with aura, not intractable, without status migrainosus; M54.50 Low back pain, unspecified; G89.29 Other chronic pain
CPT/HCPCS: 36415; 80053; 80305; 80307; 81003; 85027; 86780; 86803; 93005; 93010

== ENCOUNTER 2024-12-26 22:13 | Inpatient (IN) | payer OTHER ==
[2024-12-26 22:50] VITALS: BMI 25.1
[2024-12-26] MEDS ORDERED: guaiFENesin 600 MG TABLET.ER (FP) PO PRN (23:00)
[2024-12-26] MEDS ORDERED: NALOXONE (NARCAN) HCL 4 MG/0.1 ML SPRAY NS PRN (23:00)
[2024-12-26] MEDS ORDERED: ACETAMINOPHEN 325 MG TABLET (FP) PO PRN (23:00)
[2024-12-26] MEDS ORDERED: BENZONATATE 200 MG CAPSULE PO PRN (23:00)
[2024-12-26] MEDS ORDERED: POLYETHYLENE GLYCOL (HEALTHYLAX) 3350 17 GM PACKET PO PRN (23:00)
[2024-12-26] MEDS ORDERED: LOPERAMIDE HCL 2 MG CAPSULE PO PRN (23:00)
[2024-12-26] MEDS ORDERED: BENZOCAINE/MENTHOL (CHLORASEPTIC ) LOZENGE MM PRN (23:00)
[2024-12-26] MEDS: MELATONIN 5 MG TABLETS PO SCH (23:00)
[2024-12-26] MEDS ORDERED: MAGNESIUM HYDROX 2400MG/30ML ORAL SUSPENSION 30 ML CUP PO PRN (23:00)
[2024-12-26] MEDS ORDERED: MELATONIN 5 MG TABLETS ONE (23:40)
[2024-12-26] MEDS: IBUPROFEN 400 MG TABLET (FP) PO PRN (23:54)
[2024-12-26] MEDS ORDERED: IBUPROFEN 400 MG TABLET (FP) PO ONE (23:55)
[2024-12-27] MEDS: PRENATAL VITAMINS W/ FOLIC ACID TABLET (FP) PO SCH (10:30)
[2024-12-27] MEDS: IBUPROFEN 600 MG TABLET (FP) PO PRN (11:14)
[2024-12-27 11:38] LABS: MCHC 32.0 g/dl (32.3-36.5); MEAN CELL VOLUME 92.4 fl (79.0-92.2); MEAN PLT VOLUME 10.9 fl (9.4-12.4); RDW 13.3 % (12.2-16.1)
[2024-12-27 11:58] LABS: CO2 28.0 mmol/L (21-32); GLUCOSE,RANDOM 132.0 mg/dL (74-106)
[2024-12-27 12:02] LABS: CREATININE 1.0 mg/dL (0.55-1.3); SGOT/AST 20.0 U/L (15-37); SGPT/ALT 18.0 U/L (13-61)
[2024-12-27 12:05] LABS: ALK PHOS 62.0 U/L (45-117)
[2024-12-27 12:08] LABS: TOT PROT 5.9 g/dl (6.4-8.2)
[2024-12-27] MEDS: THIAMINE 100 MG TABLET PO SCH (21:39)
[2024-12-28] MEDS: MAG HYDROX/AL HYDROX/SIMETH 30 ML UNIT-DOSE CUP PO PRN (04:41)
[2024-12-28 14:09] LABS: URINE APPEARANCE CLEAR; URINE BILIRUBIN NEGATIVE (NEGATIVE); URINE COLOR YELLOW; URINE GLUCOSE (UA) NEGATIVE (NEGATIVE); URINE KETONE TRACE (NEGATIVE); URINE LEUK ESTERASE NEGATIVE (NEGATIVE); URINE NITRITE NEGATIVE (NEGATIVE); URINE PROTEIN NEGATIVE (NEGATIVE); URINE UROBILINOGEN 0.2 mg/dL (0.2-1.0)
[2024-12-29] MEDS ORDERED: CALCIUM CARBONATE 650 MG TABLET PO PRN (14:00)
[2024-12-29] MEDS: amLODIPine BESYLATE 10 MG TABLET (FP) PO SCH (14:32)
[2024-12-29] MEDS: FAMOTIDINE 20 MG TABLET PO SCH (14:32)
[2024-12-29] MEDS: BACLOFEN 10 MG TABLET (FP) PO SCH (21:42)
[2025-01-01] MEDS: CLINDAMYCIN PHOSPHATE 1% TOPICAL GEL 30 GM TUBE TP SCH (21:19)
[2025-01-01] MEDS: BENZOCAINE 20 % GEL TUBE MM PRN (21:21)
[2025-01-08 07:25] VITALS: BP 120/78; PULSE 61; RESP 18; TEMP 97.7
== END 2025-01-08 10:08 | disposition home or self-care (01) | DRG 772 ==
LOC: YASAS 22:13 → Y5N 23:39
PROVIDERS: ADMIT Psychiatry & Neurology Pain Medicine; ATTEND Psychiatry & Neurology Pain Medicine
PROC: HZ42ZZZ Group Counseling for Substance Abuse Treatment, Cognitive-Behavioral (ICD-10-PCS; principal; 2024-12-26)
DX: F14.20 Cocaine dependence, uncomplicated (principal); M54.50 Low back pain, unspecified; G43.909 Migraine, unspecified, not intractable, without status migrainosus; G47.00 Insomnia, unspecified; W45.8XXA Other foreign body or object entering through skin, initial encounter; Y93.9 Activity, unspecified; Y92.9 Unspecified place or not applicable; Y99.9 Unspecified external cause status
CPT/HCPCS: 36415; 73630-TC-RT-FY; 80053; 80305; 80307; 81003; 85027; 86780; 87811; 93005; 93010; J0475